=== PATIENT | female | born 1995 | race Caucasian/White ===

== ENCOUNTER 2024-03-03 02:03 | Inpatient (IN) ==
--- OUTSIDE RECORDS SUMMARY | 2024-03-03 02:10 | External Medical Summary | Summary of Care ---
Author Name Unknown Organization [facility] Address [address] [place] [address] Phone [phone] Care Team Providers [facility] [employer] Supervisor Name Role Phone GrettaMelissa smith PAYola Primary Care Provider [phone] Reason for Visit * Reason Comments Return Visit 37w1d Encounter Details Date Type Department Care Team (Late st Contact Info) Description 02/14/2024 3:45 PM EDT Office Visit Gynecology/Obstetric [facility] [address] [place] [id number] Sharon Wells MD [address] [facility] [place], [place] [id number] 37 weeks gestation of *; Diet controlled gestational diabetes mellitus (GDM) in third trimester; Family history of congenital anomaly; Antepartum anemia; History of pre-eclampsia in prior , currently ; Obesity in , antepartum Allergies No known active allergiesdocumented as of this encounter (statuses as of 02/27/2024) Medications Medication Sig Dispensed Refills Start Date End Date Status Multivitamin Adult Oral Tablet Take by mouth. Act magdalene OneTouch Verio Flex System w/Device KitIndications:Di et controlled gestational diabetes mellitus (GDM) in third trimester Use to test blood sugars 4 times daily (fasting, 1 hour after breakfast, lunch, and dinner) 1 Kit 12/08/2023 Active OneTouch Delica Lancets 30GIndications:Di et controlled gestational diabetes mellitus (GDM) in third trimester Use to test blood sugars 4 times daily (fasting, 1 hour after breakfast, lunch, and dinner) 200 Each 6 12/08/2023 Active Vitamin B-12 1000 MCG Oral Tablet (Cyanocobalamin)I ndications:Antepa rtum anemia,B12 deficiency Take 1 Tablet by mouth in the morning. 30 Tablet 5 12/08/2023 Active Docusate Sodium 100 MG Oral Capsule (Colace)Indicatio ns:Antepartum anemia Take 1 Capsule by mouth 2 times a day as needed for Constipation. 60 Capsule 5 12/11/2023 Active OneTouch Delica Lancets 30GIndications:Di et controlled gestational diabetes mellitus (GDM) in third trimester Use to test blood sugars 4 times daily (fasting, 1 hour after breakfast, lunch, and dinner) 200 Each 6 12/11/2023 Active Vitamin B-12 1000 MCG Oral Tablet (Cyanocobalamin)I ndications:Antepa rtum anemia,B12 deficiency Take 1 Tablet by mouth in the morning. 30 Tablet 5 12/11/2023 Active Vitron-C 65-125 MG Oral Tablet (Iron-Vitamin C 65-125 mg per tab)Indications:A ntepartum anemia Take 1 Tablet by mouth in the morning and 1 Tablet before bedtime. 60 Tablet 1 12/11/2023 Active OneTouch Verio In Vitro Strip (Glucose Blood) Use as directed 30 Strip 3 12/12/2023 Active OneTouch Verio In Vitro Strip (Glucose Blood)Indications :Diet controlled gestational diabetes mellitus (GDM) in third trimester Use to test blood sugars 4 times daily (fasting, 1 hour after breakfast, lunch, and dinner) 100 Strip 6 01/10/2024 Active Aspirin 81 MG Oral Tablet Delayed Release Take 1 Tablet by mouth in the morning. 4 Discontinued documented as of this encounter (statuses as of 02/27/2024) Active Problems Problem Noted Date Diagnosed Date High-risk in third trimester 4 Diet controlled gestational diabetes mellitus (GDM) in third trimester 12/08/2023 Overview: Diagnosed at 27 weeks Nutrition consult ordered Lab Results Component Value Date/Time 50-G GESTATIONAL GLUCOSE, 1 HOUR - [facility] 137 (H) 08/21/2023 09:16 AM 100-G GESTATIONAL GLUCOSE, 1 HOUR - [facility] 209 (H) 12/08/2023 08:11 AM 100-G GESTATIONAL GLUCOSE, 2 HOUR - [facility] 192 (H) 12/08/2023 09:09 AM 100-G GESTATIONAL GLUCOSE, 3 HOUR - [facility] 90 12/08/2023 10:16 AM 100-G GESTATIONAL GLUCOSE, FASTING - [facility] 82 12/08/2023 07:10 AM 12/13/23: MFM ADAPT consult complete. Enrolled in [employer]. Instructions provided to report blood sugars each week for MFM review 12/19/20238664-HYX-ddq reporting. Sent message via [employer] asking her to update blood sugars 12/25/20238427-AUX-woozte 01/02/20247288-XAO-omgwtm 01/09/20240765-NLY-rodhzc 01/15/20241214-TVN-iodkjia stable. Rare post prandial elevation 01/23/20242079-IRQ-ndtcaeo stable (2 elevated post prandial breakfast) 01/30/20248319-OQT-qavdmwu stable (rare elevation) 02/05/24: RPM reviewed; Stable 02/13/24: RPM reviewed; overall stable 02/19/20242432-VLY-tzgaurh stable (< 50% elevated) 02/27/20248026-JUJ-zbybzj Last Assessment & Plan: I reviewed the US. The anatomy that was visualized appears unremarkable and the EFW is c/w the 78%tile for the gestational age and the RAFFAELE is normal. As her GDM is controlled by diet alone, there is no clinical indication for follow-up. Antepartum anemia 12/08/2023 Overview: Hgb 10.6 on 12/08/23. Vitron C BID. Repeat CBC at 31 weeks. B12 deficiency 12/08/2023 Overview: Vitamin B12 211 on 12/08/23. Rx for 1000mcg PO B12 daily. Repeat at 31 weeks. Elevated glucose tolerance test 08/21/2023 Overview: 3 hour gtt normal. Repeat at 28w. Obesity in , antepartum 08/11/2023 Overview: Pregravid BMI 31.45 Class 1 Last Assessment & Plan: Low risk NIPT appreciated as well as early 1'GTT and 3'GTT. 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 echo may not detect small VSD (<2mm) but is effective in diagnosis of most cyanotic lesions and many other clinically relevant cardiac defects. Today's exam did not suggest any evidence of cardiac abnormality. History of pre-eclampsia in prior , currently 08/09/2023 Overview: History of preeclampsia in 2022 No evidence of chronic hypertension Baseline Preeclampsia Labs Lab Results Component Value Date/Time PLT 381 08/09/2023 02:23 PM CREATININE - [facility] 0.5 08/09/2023 02:23 PM AST - [facility] 14 08/09/2023 02:23 PM ALT - [facility] 15 08/09/2023 02:23 PM 24 urine ordered; not complete to date Encouraged aspirin 81 mg therapy at 13 weeks (08/29/23) Last Assessment & Plan: CONSIDERATIONS: Discussed that the overall recurrence rate for pre-eclampsia is 20%. The recurrence risk of pre-eclampsia is 5-7% if it was uncomplicated pre-eclampsia in the prior . If it was pre-eclampsia with severe features in the prior , the recurrence risk goes up to 30-65%. Explained to patient that risk factors for development of pre-eclampsia include the primigravid state, history of pre-eclampsia in previous , family history of pre-eclampsia, presence of chronic hypertension, increased BMI, multiple gestation, pre-existing maternal renal disease or diabetes, advanced maternal age, antiphospholipid syndrome and other coagulopathies, chronic maternal autoimmune disease, or prolonged interval between pregnancies. Discussed with patient that the risks associated with a diagnosis of pre- eclampsia which is not monitored and not managed appropriately include development of HELLP syndrome or eclampsia (seizures) and end organ damage to liver, brain, kidneys, or fetus (manifested by growth restriction or ), and even maternal . RECOMMENDATIONS: Recommend baseline pre-eclamptic labwork be done early in subsequent pregnancies to include CBC, AST/ALT, creatinine, and 24 hour total urine protein. Patients should be monitored closely in subsequent pregnancies for signs of pre-eclampsia and managed appropriately to reduce the incidence of associated maternal and risks. Reviewed that pre-eclampsia and HELLP are not preventable conditions. There is some evidence that daily ASA 81mg may decrease the risk for recurrence in patients with a history of pre-eclampsia prior to 34 weeks and we recommend that she proceed with starting this therapy after 12 weeks. History of diet-controlled gestational diabetes mellitus 08/09/2023 Overview: History of gestational diabetes (diet controlled) in 2022 No results found for: "50-G GESTATIONAL GLUCOSE", "50-G GESTATIONAL GLUCOSE, 1 HOUR - [facility]" Early glucose screen ordered; not complete to date; encouraged to complete Last Assessment & Plan: Reviewed with patient that women who have a history of GDM in a previous may have up to a 75% risk for GDM in subsequent pregnancies. Recommend obtaining early one hour Glucola screen and repeat again at 26-28 weeks if early screen is normal. Gastroesophageal reflux disease without esophagi tis 11/18/2014 IBS (irritable bowel syndrome) 11/18/2014 Duodenitis 08/29/2012 Atrial premature beats 11/29/2002 Estimated Date of Delivery Comme nts Yes 03/05/2024 Based on last me nstrual period of 05/30/2023 (Exact Date) documented as of this encounter (statuses as of 02/27/2024) Resolved Problems Problem Noted Date Diagnosed Date Resolved Date Abdominal pain 11/18/2014 11/18/2014 Epigastric pain 11/18/2014 06/17/2017 Diarrhea 11/18/2014 06/17/2017 Diarrhea 04/20/2011 07/26/2011 Excessive flatus 04/20/2011 02/01/2012 Growth deceleration 04/20/2011 07/26/19 12 GERD (gastroesophageal reflux disease) 04/20/2011 11/18/2014 Abdominal pain, epigastric 03/28/2011 1 Dysphagia 03/28/2011 07/26/2011 Overview: ICD-10 update of inactive term Loss of weight 03/28/2011 07/26/2011 Palpitations 12/17/2010 06/17/2017 Vertigo 12/17/2010 11/18/2014 Chest pain 12/17/2010 07/26/2011 ACUTE PHARYNGITIS 01/07/2002 06/26/2008 Overview: Resolved per Benign Acute Dxs Protocol #3 documented as of this encounter (statuses as of 02/27/2024) Immunizations Name Administration Dates Next Due DTaP Dipth/Tet/Acell Pertussis (Infanrix), Peds 11/06/2002,12/09/1998,1997,10/13,1997 HIB PRP-T, 4 Dose, PF, IM (H iberix, ActHib) 1998,1997,1997,08/11 HPV Vaccine, 4-Valent 06/18/2014,06/03/2013,06/01 Hepatitis B, 0-19 yrs 01/08/1998,1997,06/01 IPV - Polio Virus Vaccine (Inact) 2002,1998,1997,08/11 Influenza Vaccine, Live, Int ranasal, Trivalent (Flumist) 06/18/2012,02/08/2011 MMR - Measles/Mumps/Rubella Vaccine 11/06/2002,0 1998 Meningococcal Conjugate Vacc ine (Menactra/Menveo) 06/18/2014,08/11/2008 RSV Vac., Bivalent, Perfusio n F, Pf,0.5 Ml (Abrysvo) 01/24/2024 Seasonal Influenza Virus Vac cine, Unspecified Formulation 05/24/2022 Seasonal Influenza, Trivalen t, (IIV3), PF, (Fluzone) 01/10/2024 TDAP (age 10 and older)(Boostrix) 06/18/2014 TDAP, Age 7 and older, IM (Adacel) 12/12/2023,,08/11/2008 Varicella Vaccine (Chicken Pox) 07/12/2000,06/11 documented as of this encounter Social History Tobacco Use Types Packs/Day Years Used Date Smoking Tobacco: Never Smokeless Tobacco: Never Tobacco Cessation:Counseling Given: Not Answered Alcohol Use Standard Drinks/Week Comments No 0 (1 standard drink = 0.6 oz pur e alcohol) PHQ-2 Answer Date Recorded PHQ-2 Score 0 03/04/2018 Hunger Vital Sign Answer Date Recorded Within the past 12 months, y ou worried that your food would run out before you got the money to buy more. Never true 06/21/19 24 Within the past 12 months, t he food you bought just didn't last and you didn't have money to get more. Never true 06/21/2023 [place] Depression Scale Answer Date Recorded [place] Depression Scale Total 3 12/12/2023 The thought of harming myself has occurred to me . Never 12/12/2023 Childcare Answer Date Recorded Do you feel overwhelmed with taking care of a child, family member or friend? No 06/21/2023 Does your family need help f inding childcare? (Household - for ages 0-17 years) Not on file 06/21/2023 Clothing Answer Date Recorded Have you been unable to get clothing when it was really needed? No 06/21/2023 Is your family able to get c lothes or diapers when needed? (Household - for ages 0-17 years) Not on file 06/21/2023 Personal Safety Answer Date Recorded Do you feel unsafe or have concerns for your saf ety? No 06/21/2023 Do you have concerns for you r family's safety? (Household - for ages 0-17 years) Not on file 06/21/2023 Utilities Answer Date Recorded Do you have trouble paying y our heating, water, or electric bill? No 06/21/2023 Is your family able to pay t he heat, water, or electric bill? (Household - for ages 0-17 years) Not on file 06/21/2023 Does your family have access to good internet? (Household - for ages 0-17 years) Not on file 06/21/2023 Employment Status Answer Date Recorded Are you unemployed or without regular income? No 06/21/2023 Does the household have a re gular source of income? (Household - for ages 0-17 years) Not on file 06/21/2023 Social Connections Answer Date Recorded How often do you feel lonely or isolated from th ose around you? Never 06/21/2023 Financial Resource Strain Answer Date R ecorded Do you have any trouble payi ng for your medications, or do you think you might in the future? No 06/21/2023 Does your family have troubl e paying for medicine? (Household - for ages 0-17 years) Not on file 06/21/2023 Transportation Needs Answer Date Record ed READ ONLY Do you have troubl e getting a ride to medical visits or work? Never True 06/21/2023 Does your family have a hard time getting a ride to doctors visits? (Household - for ages 0-17 years) Not on file 06/21/2023 Has lack of transportation k ept you from medical appointments, meetings, work, or from getting things needed for daily living? Check all that apply. (Adult - for ages 18 years and over) Not on file 06/21/2023 Do you (or your family) have trouble finding or paying for a ride (transportation)? (Household - for ages 0-17 years) Not on file 06/21/2023 Housing Stability Answer Date Recorded Do you currently live in a s helter or have no steady place to sleep at night? No 06/21/2023 READ ONLY Do you think you a re at risk of becoming homeless? No 06/21/2023 Does your family worry about paying for your home or becoming homeless? (Household - for ages 0-17 years) Not on file 0 06/21/2023 Are you homeless or worried that you might be in the future? (Adult - for ages 18 years and over) Not on file Are you (or your family) julien eless or worried that you might be in the future? (Household - for ages 0-17 years) Not on file Food Insecurity Answer Date Recorded Do you need food for this week? No 06/21/2023 Are you able to get enough f ood for your family? (Household - for ages 0-17 years) Not on file 06/21/2023 Does your family need food t his week? (Household - for ages 0-17 years) Not on file 06/21/2023 Do you always have enough fo od for your family? (Household - for ages 0-17 years) Not on file 06/21/2023 Estimated Date of Delivery Comme nts Yes 03/05/2024 Based on last me nstrual period of 05/30/2023 (Exact Date) Sex and Gender Information Value Date Recorded Sex Assigned at Female 08/23/2018 3:28 PM EDT Gender Identity Female 08/23/2018 3:28 PM EDT Sexual Orientation Straight 08/23/2018 3: 28 PM EDT Job Start Date Occupation Industry Not on file Not on file Not on file documented as of this encounter Last Filed Vital Signs Vital Sign Reading Time Taken Comments Blood Pressure 130/80 02/14/2024 3:38 PM EDT Pulse - - Temperature 36.6 C (97.8 F) 02/14/2024 3:38 PM ED T Respiratory Rate - - Oxygen Saturation - - Inhaled Oxygen Concentration - - Weight 89.4 kg (197 lb 3.2 oz) 02/14/2024 3:38 P M EDT Height - - Body Mass Index 36.07 08/07/2023 1:49 PM EDT documented in this encounter Progress Notes * Sharon Wells MD - 02/14/2024 3:42 PM EDT Monica Villela is a 28 year old female here for her routine OB appointment at 37w1d. Patient reports cramps. Her Estimated Date of Delivery: 03/05/24 REVIEW OF SYSTEMS: She affirms movement. Denies vaginal bleeding, LOF, regular contractions, N/V, headaches [place] Depression Scale: No data recorded [place] suicide question and score: Score of 3 = Yes, quite often. Score of 2 = Sometimes. Score of 1 = Hardly ever No data recorded PHYSICAL EXAM: Filed Vitals: 02/14/24 1538 BP: 130/80 Temp: 36.6 C (97.8 F) Weight: 89.4 kg (197 lb 3.2 oz) +FHT 157 bpm Fundal height 39 cm ASSESSMENT/PLAN: (O24.410) Diet controlled gestational diabetes mellitus (GDM) in third trimester Plan: The patient reports her blood sugars have been well controlled. Fasting in the 80s. Postprandial 100 - 120mg/dl. (Z82.79) Family history of congenital anomaly Plan: Patient has been seen by the M team. (O99.019) Antepartum anemia Plan: Patient is taking vitron C and Vitamin B12. (O09.299) History of pre-eclampsia in prior , currently Plan: Patient has been taking aspirin 81 mg daily. Patient was instructed to discontinue aspirin. BP noted. Patient denies headaches, blurry vision or epigastric pain. (O99.210) Obesity in , antepartum Plan: GCT was elevated. (Z3A.37) 37 weeks gestation of (primary encounter diagnosis) Plan: - recommended flu vaccine - patient has been vaccinated already - labor precautions and kick counts reviewed - RTO in 1 week Sharon Wells MD documented in this encounter Nursing Notes * Kacie Weinberg LPN - 02/14/2024 3:36 PM EDT Chief Complaint Patient presents with Return Visit 37w1d Pt is with concerns of increasing cramping. Monday was having more contractions than she has before but did subside. GBS neg Kacie Weinberg LPN documented in this encounter Miscellaneous Notes * Addendum Note - Sharon Wells MD - 02/27/2024 3:49 PM EDTAddended by: SHARON WELLS on: 02/27/2024 03:49 PM Modules accepted: Level of Service documented in this encounter Plan of Treatment Health Maintenance Due Date Last Done Comments Depression Screening 06/17/2018 06/17/2017 COVID-19 Vaccine ( season) 2023 Pap Smear 12/13/2024 12/13/2021 (Done elsewhere), 12/13/2021, 12/13/2021 DTap/Tdap Vaccines (10 - Td or Tdap) 12/11/2033 12/12/2023, 05/11/2022, 06/18/2014, Additional history exists Hepatitis B Vaccine Completed 01/08/1998, 1997, 1997 HPV (Gardasil) Vaccine Completed 5, 06/03/2013, 06/18/2012 MENINGOCOCCAL (MENACTRA/MENVEO) Completed 06/18/2014, 08/11/2008 Gonorrhea / Chlamydia Screen Discontinued 08/09/2023 Influenza Vaccine (FLU shot) Completed 01/10/2024, 05/24/2022, 06/18/2012, Additional history exists Pneumococcal Vaccine: Pediatrics (0 to 5 Years) and At-Risk Patients (6 to 64 Years) Aged Out No longer eligible based on patient's age to complete this topic documented as of this encounter Medical Devices Not on filedocumented as of this encounter Visit Diagnoses Diagnosis 37 weeks gestation of - Primary state, incidental Diet controlled gestational diabetes mellitus (GDM) in third trimester Family history of congenital anomaly Family history of congenital anomalies Antepartum anemia Anemia, antepartum History of pre-eclampsia in prior , currently with other poor obstetric history Obesity in , antepartum Obesity complicating , childbirth, or the puerperium, antepartum condition or complication documented in this encounter Care Teams [employer] Supervisor Relationship Specialty Start Date End Date Sohail July MALIKA Rosado [address] [place] [id number] PCP - General Physician At Home Independent Call Center Agent 12/14/20 documented as of this encounter
--- OUTSIDE RECORDS SUMMARY | 2024-03-03 02:11 | External Medical Summary | Summary of Care ---
Author Name Unknown Organization [facility] Address [address] [place] [address] Phone [phone] Care Team Providers Care Fire Prevention Specialist Name Role Phone GrettaMelissa smith MALIKA Primary Care Provider Reason for Visit * Reason Comments Return Visit 38w Encounter Details Date Type Department Care Team (Late st Contact Info) Description 02/20/2024 3:45 PM EDT Office Visit Gynecology/Obstetric Kelly olvera [address] [place] [address] [facility] [place] [phone] 38 weeks gestation of *; Diet controlled gestational diabetes mellitus (GDM) in third trimester; Family history of congenital anomaly; Antepartum anemia; History of pre-eclampsia in prior , currently ; Obesity in , antepartum; History of diet-controlled gestational diabetes mellitus Allergies No known active allergiesdocumented as of this encounter (statuses as of 02/20/2024) Medications Medication Sig Dispensed Refills Start Date [...] as of this encounter (statuses as of 02/20/2024) Active Problems Problem Noted Date Diagnosed Date [...] 12/13/23: MFM ADAPT consult complete. Enrolled in [employer]. Instructions provided to report blood sugars each week for MFM review 12/19/20238750-YHV-wkl reporting. Sent message via [employer] asking her to update blood sugars 12/25/20239283-XVG-agtair 01/02/20243174-WTZ-jeujqs 01/09/20244548-FBM-opgbvj 01/15/20246231-NDR-jtfruzn stable. 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 [facility] genetic counseling referral placed Last Assessment [...] as of this encounter (statuses as of 02/20/2024) Resolved Problems Problem Noted Date Diagnosed Date [...] as of this encounter (statuses as of 02/20/2024) Immunizations Name Administration Dates Next Due HPV Vaccine, 4-Valent 06/18/2014,06/03/2013,06/01 Influenza Vaccine, Live, Int ranasal, Trivalent (Flumist) 06/18/2012,02/08/2011 Meningococcal Conjugate Vacc ine (Menactra/Menveo) 06/18/2014,08/11/2008 RSV Vac., Bivalent, Perfusio n F, Pf,0.5 Ml (Abrysvo) 01/24/2024 Seasonal Influenza Virus Vac cine, Unspecified Formulation 05/24/2022 Seasonal Influenza, Trivalen t, (IIV3), PF, (Fluzone) 01/10/2024 TDAP (age 10 and older)(Boostrix) 06/18/2014 TDAP, Age 7 and older, IM (Adacel) 12/12/2023,,08/11/2008 documented as of this encounter Social History [...] money to get more. Never true 06/21/2023 [place] Depression Scale Answer Date Recorded [place] Depression Scale Total 3 12/12/2023 The thought [...] 06/21/2023 Does the household have a re lar source of income? (Household - for ages [...] Sign Reading Time Taken Comments Blood Pressure 120/70 02/20/2024 3:47 PM EDT Pulse - - Temperature 36.8 C (98.2 F) 02/20/2024 3:47 PM ED T Respiratory Rate - - Oxygen Saturation - - Inhaled Oxygen Concentration - - Weight 89.2 kg (196 lb 9.6 oz) 02/20/2024 3:47 P M EDT Height - - Body Mass Index 35.96 08/07/2023 1:49 PM EDT documented in this encounter Progress Notes * Deja Irizarry MD - 02/20/2024 3:45 PM EDT Patient is 28 year old at 38 0/7 weeks who presents for GABINO visit Denies no regular contractions, leaking of fluid, or vaginal bleeding. Noted good movement. +cramping. Would like to be checked today Denies headache, blurry vision, RUQ or epigastric pain. Stopped ASA last week Problem list reviewed BP 120/70 | Temp 36.8 C (98.2 F) | Wt 89.2 kg (196 lb 9.6 oz) | LMP 05/30/2023 (Exact Date) | BMI 35.96 kg/m | BSA 1.98 m FH:39 FHT: 145-150 Cx: 1-3 Liner Checker Documentation Provider requested wool grower. Name of wool grower: Kacie Weinberg LPN Plan: Labor and preeclampsia warnings reviewed Flu vaccine already received RTC 1 weeks V Juan C BORRERO PhD documented in this encounter Nursing Notes * Kacie Weinberg LPN - 02/20/2024 3:38 PM EDT Chief Complaint Patient presents with Return Visit 38w Pt is with no concerns. GBS neg Kacie Weinberg LPN documented in this encounter Plan of Treatment Upcoming Encounters Date Type Department Care Team (Late st Contact Info) Description 02/27/2024 3:45 PM EDT Office Visit Gynecology/Obstetrics, [place] [address] [place] [phone] Shae Wells MD [address] [place] [address] Health Maintenance Due Date Last Done Comments [...] as of this encounter Visit Diagnoses Diagnosis 38 weeks gestation of - Primary state, incidental Diet controlled gestational diabetes mellitus (GDM) in third trimester Family history of congenital anomaly Family history of congenital anomalies Antepartum anemia Anemia, antepartum History of pre-eclampsia in prior , currently with other poor obstetric history Obesity in , antepartum Obesity complicating , childbirth, or the puerperium, antepartum condition or complication History of diet-controlled gestational diabetes mellitus documented in this encounter Care Teams Fire Prevention Specialist Relationship Specialty Start Date End Date SohailJuly MALIKA Rosado [address] [place] [address] PCP - General Physician Ekg Monitor 12/14/20 documented as of this encounter
--- OUTSIDE RECORDS SUMMARY | 2024-03-03 02:11 | External Medical Summary ---
Author Name Unknown Address Unknown Organization K01:[facility] [address] [place] [address] Laboratory Report Ordering Provider Test Date Status MIRIAN FUNEZ 02/07/2024 16:20:07 Final Observation Date Value Abnormality Reference (Units ) Status Streptococcus agalactiae DNA [Presence] in Specimen by MONICA with probe detection 02/07/2024 16:20:07 Negative Negative Final No Group B Streptococcus det ected by culture-enhanced PCR (amplified probe). GBS GBSCT - [facility] 02/07/2024 16:20:07 0.0 Final GBS SPCCT - [facility] 02/07/2024 16:20:07 31.2 Final Performing Location [facility] [place] [address] [place] [address]
--- OUTSIDE RECORDS SUMMARY | 2024-03-03 02:11 | External Medical Summary | Summary of Care ---
Author Name Unknown Organization [facility] Address [address] [place] [address] Phone [phone] Care Team Providers Care Weather Strip Installer Name Role Phone Melissa Sauceda PAYola Primary Care Provider [phone] Reason for Visit * Reason Onset Date Comments Home Monitoring Orders Only 12/14/2023 Encounter Details Date Type Department Care Team ([facility] st Contact Info) Description 12/14/2023 Home Monitoring Care Coordination [address], [place] [phone] Darío Gomez CRNP [address] [place] [address] Diet controlled gestational diabetes mellitus (GDM) in third trimester* Allergies No known active allergiesdocumented as of this encounter (statuses as of 12/14/2023) Medications Medication Sig Dispensed Refills Start Date End Date Status Multivitamin Adult Oral Tablet Take by mouth. Active Aspirin 81 MG Oral Tablet Delayed Release Take 1 Tablet by mouth in the morning. Active Follicumio Flex System w/Device KitIndications:Diet controlled gestational diabetes mellitus (GDM) in third trimester Use to test blood sugars 4 times daily (fasting, 1 hour after breakfast, lunch, and dinner) 1 Kit 12/08/2023 Active Follicumio In Vitro Strip (Glucose Blood)Indications:Di et controlled gestational diabetes mellitus (GDM) in third trimester Use to test blood sugars 4 times daily (fasting, 1 hour after breakfast, lunch, and dinner) 100 Strip 6 12/08/2023 Active Tilckuch Delica Lancets 30GIndications:Diet controlled gestational diabetes mellitus (GDM) in third trimester Use to test blood sugars 4 times daily (fasting, 1 hour after breakfast, lunch, and dinner) 200 Each 6 12/08/2023 Active Vitron-C 65-125 MG Oral Tablet (Iron-Vitamin C 65-125 mg per tab)Indications:Ante anemia Take 1 Tablet by mouth in the morning and 1 Tablet before bedtime. 60 Tablet 1 12/08/2023 Active Vitamin B-12 1000 MCG Oral Tablet (Cyanocobalamin)Marzena cations:Antepartum anemia,B12 deficiency Take 1 Tablet by mouth in the morning. 30 Tablet 5 12/08/2023 Active Docusate Sodium 100 MG Oral Capsule (Colace)Indications: Antepartum anemia Take 1 Capsule by mouth 2 times a day as needed for Constipation. 60 Capsule 5 12/08/2023 Active Docusate Sodium 100 MG Oral Capsule (Colace)Indications: Antepartum anemia Take 1 Capsule by mouth 2 times a day as needed for Constipation. 60 Capsule 5 12/11/2023 Active OneTouch Delica Lancets 30GIndications:Diet controlled gestational diabetes mellitus (GDM) in third trimester Use to test blood sugars 4 times daily (fasting, 1 hour after breakfast, lunch, and dinner) 200 Each 12/11/2023 Active Vitamin B-12 1000 MCG Oral Tablet (Cyanocobalamin)Marzena cations:Antepartum anemia,B12 deficiency Take 1 Tablet by mouth in the morning. 30 Tablet 5 12/11/2023 Active Vitron-C 65-125 MG Oral Tablet (Iron-Vitamin C 65-125 mg per tab)Indications:Ante anemia Take 1 Tablet by mouth in the morning and 1 Tablet before bedtime. 60 Tablet 1 12/11/2023 Active OneTouch Verio In Vitro Strip (Glucose Blood) Use as directed 30 Strip 3 12/12/2023 Active documented as of this encounter (statuses as of 12/14/2023) Active Problems Problem Noted Date Diagnosed Date High-risk in third trimester Diet controlled gestational diabetes mellitus (GDM) in [...] 12/13/23: MFM ADAPT consult complete. Enrolled in [employer]. Instructions provided to report blood sugars each week for MFM review Last Assessment & Plan: CONSIDERATIONS: Reviewed etiology and risks associated with gestational diabetes mellitus (GDM), including risks to , fetus, and maternal progression to Type 2 DM. Instructed on proper use of glucometer; supplies ordered, if indicated. Advised that life-long screening for diabetes is recommended every 1-3 years. RECOMMENDATIONS: Recommend monitoring blood sugars with daily fasting blood sugar (maintained at less than or equal to 95) and 1 hour postprandial measurements (maintained at less than or equal to 140). Medications should be adjusted to maintain these target values. Report levels to MFM (Maternal- Medicine) weekly. Recommend nutrition consult with RDN (Registered Dietitian Credit Negotiator). Lifestyle changes are also indicated including optimizing gestational weight gain and physical activity of 30 minutes per day, if not otherwise contraindicated in . Insulin is preferred if medications are indicated to optimize euglycemia. Metformin (preferred over glyburide) may also be used in some circumstances. Reviewed the risks and benefits of each. Recommend ultrasound, surveillance and delivery as follows: A1GDM, delivery should be accomplished by 41w0d. A2GDM, recommend growth assessment with MFM every 4 weeks, initiate surveillance with twice weekly NSTs at 32 weeks and continue until delivery at 39 weeks. Recommend intrapartum monitoring every 1-2 hours (A2GDM) or every 4 hours (A1GDM) and treat with insulin if indicated. Recommend 2-hour glucose tolerance testing with 75-gram glucose load during admission (or 6-8 weeks if not completed). 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 [facility] genetic counseling referral placed Last Assessment & [...] as of this encounter (statuses as of 12/14/2023) Resolved Problems Problem Noted Date Diagnosed Date [...] as of this encounter (statuses as of 12/14/2023) Immunizations Name Administration Dates Next Due HPV Vaccine, 4-Valent 06/18/2014,06/03/2013,06/01 Meningococcal Conjugate Vacc ine (Menactra/Menveo) 06/18/2014,08/11/2008 Seasonal Influenza Intranasal 06/18/2012, 011 Seasonal Influenza Virus Vac cine, Unspecified Formulation 05/24/2022 TDAP (age 10 and older)(Boostrix) 06/18/2014 TDAP, Age 7 and older, IM (Adacel) 12/12/2023,,08/11/2008 documented as of this encounter Social History Tobacco Use Types Packs/Day Years Used Date Smoking Tobacco: Never Smokeless Tobacco: Never Alcohol Use Standard Drinks/Week Comments No 0 [...] money to get more. Never true 06/21/2023 [place] Depression Scale Answer Date Recorded [place] Depression Scale Total 5 08/09/2023 The thought of harming myself has occurred to me . Never 08/09/2023 Childcare Answer Date Recorded Do you feel [...] No 06/21/2023 Does the household have a [facility] source of income? (Household - for ages [...] on file documented as of this encounter Progress Notes * Sander Pichardo [facility] Steam Distribution Supervisor - 12/14/2023 9:22 AM EDT Patient has been successfully enrolled to the [id number] Diabetes Management in program. Standard alarm settings have been set as follows: Singular glucose level > 200 Singular glucose level < 60 Patient has been advised to take blood sugar four times a day (fasting upon waking, and one hour after each meal). Patient has been oriented to remote patient monitoring, assisted with initial device set-up, and provided with instruction and education regarding the program. Patient understands that this monitoring should not be used as a replacement for emergency and/or urgent care. If patient experiences any urgent symptoms, they are aware to call office/manager of investigations provider for additional instructions. In emergency situations, they will report directly to the ED for further evaluation. If you would like to customize the alert parameters and/or instructions for this patient, please let me know and we can have them changed Electronically signed by Sander Pichardo [facility] Steam Distribution Supervisor at 12/14/2023 9:23 AM EDT documented in this encounter Plan of Treatment Upcoming Encounters Date Type Department Care Team (Late st Contact Info) Description 12/19/2023 3:30 PM EDT Office Visit Partition Setter OB Maternal Medicine [facility] [place] [address] [place] [address] Dr Crowell [address] [place] [phone] Josh Kennedy MD [address] [place] [address] 12/19/2023 3:30 PM EDT Imaging Maternal Medicine [facility] [address] [place] [address] [place] [address] Dr Crowell [address] [place] [address] 12/26/2023 2:30 PM EDT Office Visit Gyne[facility] [place] [address] [facility] [place] [address] Isabel Cui PA-C [address] [facility] [place] [phone] Health Maintenance Due Date Last Done Comments Depression Screening 06/17/2018 06/17/2017 COVID-19 Vaccine ( - season) 2022 Influenza Vaccine (FLU shot) (#1) 2023 05/24/2022, 06/18/2012, 02/08/2011 Pap Smear 12/13/2024 12/13/2021 (Done elsewhere), 12/13/2021, 12/13/2021 DTaP,Tdap,and Td Vaccines (10 - Td or Tdap) 12/11/2033 12/12/2023, 05/11/2022, 06/18/2014, Additional history exists Hepatitis B Vaccine Completed 01/08/1998, 1997, 1997 HPV (Gardasil) Vaccine Completed 5, 06/03/2013, 06/18/2012 MENINGOCOCCAL (MENACTRA/MENVEO) Completed 06/18/2014, 08/11/2008 Gonorrhea / Chlamydia Screen Discontinued 08/09/2023 Pneumococcal Vaccine: Pediatrics (0 to 5 Years) and At-Risk Patients (6 to 64 Years) Aged Out No longer eligible based on patient's age to complete this topic documented as of this encounter Medical Devices Not on filedocumented as of this encounter Visit Diagnoses Diagnosis Diet controlled gestational diabetes mellitus (GDM) in third trimester- Primary documented in this encounter Care Teams Weather Strip Installer Relationship Specialty Start Date End Date SohailJuly MALIKA Rosado [address] [place], [place] [address] PCP - General Physician Steam Distribution Supervisor 12/14/20 documented as of this encounter
--- OUTSIDE RECORDS SUMMARY | 2024-03-03 02:11 | External Medical Summary | Summary of Care ---
Author Name Unknown Organization [facility] Address [address] [facility] [place] [address] Phone [phone] Care Team Providers Care Project Administrative Assistant Name Role Phone SohailMelissa MALIKA Primary Care Provider [phone] Reason for Visit * Reason Comments Return Visit 36w 1d Encounter Details Date Type Department Care Team (Late st Contact Info) Description 02/07/2024 3:45 PM EDT Office Visit Gynecology/Obstetric Kelly olvera [address] [facility] [place] [address] Annie Milligan PA-C [address] [facility] [place] [phone] 36 weeks gestation of *; History of pre-eclampsia in prior , currently ; History of diet-controlled gestational diabetes mellitus; Family history of congenital anomaly; Obesity in , antepartum; Diet controlled gestational diabetes mellitus (GDM) in third trimester Allergies No known active allergiesdocumented as of this encounter (statuses as of 02/07/2024) Medications Medication Sig Dispensed Refills Start Date End Date Status Multivitamin Adult Oral Tablet Take by mouth. Active Aspirin 81 MG Oral Tablet Delayed Release Take 1 Tablet by mouth in the morning. Active VelociDataTouch Instamojoio Flex System w/Device KitIndications:Diet controlled gestational diabetes mellitus (GDM) in third trimester Use to test blood sugars 4 times daily (fasting, 1 hour after breakfast, lunch, and dinner) 1 Kit 12/08/2023 Active OneTouch Delica Lancets 30GIndications:Diet controlled gestational [...] Active OneTouch Verio In Vitro Strip (Glucose Blood)Indications:Di et controlled gestational diabetes mellitus (GDM) in third trimester Use to test blood sugars 4 times daily (fasting, 1 hour after breakfast, lunch, and dinner) 100 Strip 6 01/10/2024 Active documented as of this encounter (statuses as of 02/07/2024) Active Problems Problem Noted Date Diagnosed Date [...] 12/13/23: MFM ADAPT consult complete. [facility]. Instructions provided to report blood sugars each week for MFM review 12/19/20237287-ASO-hgg reporting. Sent message via [employer] asking her to update blood sugars 12/25/20230106-AMK-nutyxh 01/02/20240758-DRD-vjgbor 01/09/20244868-DVL-kjlfpm 01/15/20240640-WWN-antgwkm stable. 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 Never true 06/21/2023 [place] Depression Scale Answer Date Recorded [place] Depression Scale Total 3 12/12/2023 The thought [...] No 06/21/2023 Does the household have a [facility] source of income? (Household - for ages [...] Sign Reading Time Taken Comments Blood Pressure 118/70 02/07/2024 3:44 PM EDT Pulse - - Temperature - - Respiratory Rate - - Oxygen Saturation - - Inhaled Oxygen Concentration - - Weight 88.3 kg (194 lb 9.6 oz) 02/07/2024 3:44 P M EDT Height - - Body Mass Index 35.59 08/07/2023 1:49 PM EDT documented in this encounter Progress Notes * Annie Milligan PA-C - 02/07/2024 3:50 PM EDT Monica Villela is a 28 year old female here for her routine OB appointment at 36w1d. Her Estimated Date of Delivery: 03/05/24 REVIEW OF SYSTEMS: She affirms movement. Denies vaginal bleeding, LOF, contractions, N/V, headaches Increased swelling of lower legs when at work, encouraged compression stockings PHYSICAL EXAM: Filed Vitals: 02/07/24 1544 BP: 118/70 Weight: 88.3 kg (194 lb 9.6 oz) Community Service Aide Documentation Provider requested hha. Name of hha: Elyse Montalvo LPN for GBS swab ASSESSMENT/PLAN: (O09.299) History of pre-eclampsia in prior , currently (Z86.32) History of diet-controlled gestational diabetes mellitus Z82.79) Family history of congenital anomaly (O99.210) Obesity in , antepartum (O24.410) Diet controlled gestational diabetes mellitus (GDM) in third trimester Plan: following with MFM (Z3A.36) 36 weeks gestation of - GBS swab collected today - Reviewed labor precautions,loss of fluid, vaginal bleeding, round ligament pain, and encouraged hydration. Reviewed [facility] - RTO in 1 week Annie Milligan PA-C documented in this encounter Nursing Notes * Lilli Montalvo LPN - 02/07/2024 3:45 PM EDT Chief Complaint Patient presents with Return Visit 36w 1d documented in this encounter Plan of Treatment Upcoming Encounters Date Type Department Care Team (Late st Contact Info) Description 02/14/2024 3:45 PM EDT Office Visit Gynecology/Obstetrics, [place] [address] [place] [address] Shae Wells MD [address] [place] [address] Pending Results Name Type Priority Associated Diagnoses Date /Time GROUP B STREP CULTURE/PCR Lab Routine 36 weeks gestation of 02/07/2024 4:20 PM EDT Health Maintenance Due Date Last Done Comments [...] as of this encounter Visit Diagnoses Diagnosis 36 weeks gestation of - Primary state, incidental History of pre-eclampsia in prior , currently with other poor obstetric history History of diet-controlled gestational diabetes mellitus Family history of congenital anomaly Family history of congenital anomalies Obesity in , antepartum Obesity complicating , childbirth, or the puerperium, antepartum condition or complication Diet controlled gestational diabetes mellitus (GDM) in third trimester documented in this encounter Care Teams Project Administrative Assistant Relationship Specialty Start Date End Date Sohail July MALIKA Rosado [address] [place] [address] PCP - General Physician Charcoal Kiln Burner 12/14/20 documented as of this encounter
--- OUTSIDE RECORDS SUMMARY | 2024-03-03 02:11 | External Medical Summary | Summary of Care ---
Author Name Unknown Organization [facility] Address [address] [facility] [place] [address] Phone [phone] Care Team Providers Care Manager Of Corporate Communications Name Role Phone GrettaMelissa smith MALIKA Primary Care Provider [phone] Reason for Visit * Reason Comments Outpatient Testing Encounter Details Date Type Department Care Team (Late st Contact Info) Description 01/05/2024 10:30 AM EDT Laboratory Laboratory [facility] [address] [place] [id number] [facility] [address] [facility] [place] [address] Antepartum anemia; B12 deficiency Allergies No known active allergiesdocumented as of this encounter (statuses as of 01/05/2024) Medications Medication Sig Dispensed Refills Start Date End Date Status Multivitamin Adult Oral Tablet Take by mouth. Active Aspirin 81 MG Oral Tablet Delayed Release Take 1 Tablet by mouth in the morning. Active Rapid Vocabulary Flex System w/Device KitIndications:Diet controlled gestational diabetes mellitus (GDM) in third trimester Use to test blood sugars 4 times daily (fasting, 1 hour after breakfast, lunch, and dinner) 1 Kit 12/08/2023 Active Kuddleuch Atlantis Computingio In Vitro Strip (Glucose Blood)Indications:Di et controlled gestational diabetes mellitus (GDM) in third trimester Use to test blood sugars 4 times daily (fasting, 1 hour after breakfast, lunch, and dinner) 100 Strip 6 12/08/2023 Active OneTouch Delica Lancets 30GIndications:Diet controlled [...] as of this encounter (statuses as of 01/05/2024) Active Problems Problem Noted Date Diagnosed Date [...] to report blood sugars each week for [facility] review 12/19/20236507-HAU-cvg reporting. 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 Never true 06/21/2023 [place] Depression Scale Answer Date Recorded [place] Depression Scale Total 3 12/12/2023 The thought [...] on file documented as of this encounter Plan of Treatment Upcoming Encounters Date Type Department Care Team (Late st Contact Info) Description 01/10/2024 1:15 PM EDT Office Visit Gynecology/Obstetrics, [place] [address] [place] [address] Melonie Padilla CNM [facility] [place] [phone] Pending Results Name Type Priority Associated Diagnoses Date /Time CBC WITH WBC DIFFERENTIAL AND ANEMIA REFLEX WORKUP Lab Routine Antepartum anemia 01/05/2024 10:29 AM EDT VITAMIN B12 Lab Routine B12 deficiency 01/05/2024 10:29 AM EDT ANEMIA CBC Lab Routine Antepartum anemia 01/05/2024 10:29 AM EDT DIFFERENTIAL, AUTOMATED Lab Routine Antepartum anemia 01/05/2024 10:29 AM EDT ANEMIA REFLEX CHEMISTRY HOLD Lab Routine Antepartum anemia 01/05/2024 10:29 AM EDT Health Maintenance Due Date Last Done Comments Depression Screening 06/17/2018 06/17/2017 COVID-19 Vaccine ( season) 2023 Influenza Vaccine (FLU shot) (#1) 2023 05/24/2022, [...] as of this encounter Visit Diagnoses Diagnosis Antepartum anemia Anemia, antepartum B12 deficiency Other B-complex deficiencies documented in this encounter Care Teams Manager Of Corporate Communications Relationship Specialty Start Date End Date Melissa Sauceda, [facility] [address] [place] [address] PCP - General Physician Accounts Receivable Processor 12/14/20 documented as of this encounter
--- OUTSIDE RECORDS SUMMARY | 2024-03-03 02:11 | External Medical Summary | Summary of Care ---
Author Name Unknown Organization [facility] Address [address] [facility] [place] [address] Phone [phone] Care Team Providers Care Papier Mache Molder Name Role Phone SohailMelissa MALIKA Primary Care Provider [phone] Reason for Visit * Reason Comments Return Visit 36w 1d Encounter Details Date Type Department Care Team (Late st Contact Info) Description 02/07/2024 3:45 PM EDT Office Visit Gynecology/Obstetric Kelly olvera [address] [facility] [place] [address] Annie Milligan PA-C [address] [facility] [place] [phone] 36 weeks gestation of *; History of [...] Tablet by mouth in the morning. Active TriductorTouch CodeMonkey Studiosio Flex System w/Device KitIndications:Diet controlled gestational diabetes [...] 12/13/23: MFM ADAPT consult complete. Enrolled in [employer] [facility]. Instructions provided to report blood sugars each week for MFM review 12/19/20232907-OLW-psb reporting. Sent message via [email or web address] asking her to update blood sugars 12/25/20238894-ZQQ-inihid 01/02/20240787-TPA-emsmqd 01/09/20245414-MPH-vtzdtz 01/15/20244116-QRK-vdpikvt stable. Rare post prandial elevation 01/23/20243385-QYP-xhmzwhw stable (2 elevated post prandial breakfast) 01/30/20241943-QYA-vtoafts stable (rare elevation) 02/05/24: RPM reviewed; Stable [...] money to get more. Never true 06/21/2023 [place] Depression Scale Answer Date Recorded [place] Depression Scale Total 3 12/12/2023 The thought [...] No 06/21/2023 Does the household have a [facility] source of income? (Household - for [...] Weight: 88.3 kg (194 lb 9.6 oz) Bread Wrapper Documentation Provider requested broadband technician. Name of broadband technician: Elyse Montalvo LPN for GBS swab ASSESSMENT/PLAN: [...] 02/14/2024 3:45 PM EDT Office Visit Gynecology/Obstetrics, [place] [address] [place] [address] Shae Wells MD [address] [place] [address] Pending Results Name Type Priority Associated Diagnoses [...] trimester documented in this encounter Care Teams Papier Mache Molder Relationship Specialty Start Date End Date Sohail July MALIKA Ros[address] [place] [address] PCP - General Physician Maintenance Mechanic Helper 12/14/20 documented as of this encounter
--- OUTSIDE RECORDS SUMMARY | 2024-03-03 02:11 | External Medical Summary | Summary of Care ---
Author Name Unknown Organization [facility] Address [address] [place] [address] Phone [phone] Care Team Providers Care Manager Systems Name Role Phone SohailMelissa MALIKA Primary Care Provider [phone] Reason for Visit * Reason Comments Return Visit 36w 1d Encounter Details Date Type Department Care Team (Late st Contact Info) Description 02/07/2024 3:45 PM EDT Office Visit Gynecology/Obstetric Kelly olvera [address] [facility] [place] [address] Annie Milligan PA-C [address] [facility] [place] [phone] 36 weeks gestation of *; History of [...] Tablet by mouth in the morning. Active OctoplusTouch CSS Corpio Flex System w/Device KitIndications:Diet controlled gestational diabetes [...] 12/13/23: MFM ADAPT consult complete. Enrolled in [employer] [facility]. Instructions provided to report blood sugars each week for MFM review 12/19/20232265-BDN-sqq reporting. Sent message via [employer] asking her to update blood sugars 12/25/20238223-GTX-dphhnr 01/02/20245646-IIB-dbtezp 01/09/20248192-EPY-dbnglv 01/15/20248122-TFY-bpibtvf stable. Rare post prandial elevation 01/23/20245166-KJZ-kshnjje stable (2 elevated post prandial breakfast) 01/30/20249369-WRR-jocvrtf stable (rare elevation) 02/05/24: RPM reviewed; Stable [...] money to get more. Never true 06/21/2023 [place] Depression Scale Answer Date Recorded [place] Depression Scale Total 3 12/12/2023 The thought [...] Weight: 88.3 kg (194 lb 9.6 oz) Manager Forensic Documentation Provider requested equipment maint tech. Name of equipment maint tech: Elyse Montalvo LPN for GBS swab ASSESSMENT/PLAN: [...] 02/14/2024 3:45 PM EDT Office Visit Gynecology/Obstetrics, [place] [address] [address] Shae Wells MD [address] [place] [address] Pending Results Name Type Priority Associated Diagnoses [...] trimester documented in this encounter Care Teams Manager Systems Relationship Specialty Start Date End Date Sohail July MALIKA Rosado [address] [place] [address] PCP - General Physician Music Mixer 12/14/20 documented as of this encounter
--- OUTSIDE RECORDS SUMMARY | 2024-03-03 02:11 | External Medical Summary | Summary of Care ---
Author Name Unknown Organization [facility] Address [address] [place] [address] Phone [phone] Care Team Providers Care Manager Equity Name Role Phone GrettaMelissa smith PAYola Primary Care Provider [phone] Reason for Visit * Reason Comments Return Visit 37w1d Encounter Details Date Type Department Care Team (Late st Contact Info) Description 02/14/2024 3:45 PM EDT Office Visit Gynecology/Obstetric [place] [address] [place] [address] Sharon Wells MD [address] [facility] [place], [place] [phone] 37 weeks gestation of *; Diet controlled [...] 12/13/23: MFM ADAPT consult complete. Enrolled in [employer]. Instructions provided to report blood sugars each week for MFM review 12/19/20232638-BAM-ssh reporting. Sent message via [employer] asking her to update blood sugars 12/25/20237892-LJK-tnqnhw 01/02/20249152-LTL-gbefdu 01/09/20240777-SJW-szunfu 01/15/20245150-RZK-focuhxc stable. 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 Never true 06/21/2023 [place] Depression Scale Answer Date Recorded [place] Depression Scale Total 3 12/12/2023 The thought [...] vaginal bleeding, LOF, regular contractions, N/V, headaches [place] Depression Scale: No data recorded [place] suicide question and score: Score of 3 [...] in , antepartum Plan: GCT was elevated. 3 hour GTT was normal. (Z3A.37) 37 weeks gestation of (primary encounter [...] complication documented in this encounter Care Teams Manager Equity Relationship Specialty Start Date End Date SohailJuly MALIKA Rosado [address] [place] [address] PCP - General Physician Bead Filler 12/14/20 documented as of this encounter
--- OUTSIDE RECORDS SUMMARY | 2024-03-03 02:11 | External Medical Summary ---
Author Name Unknown Address Unknown Organization K01:[facility] [address] [place] [address] Laboratory Report Ordering Provider Test Date Status KAILA HOLLOWAY 01/05/2024 10:29:59 Final Observation Date Value Abnormality Reference (Units ) Status Vitamin B12 01/05/2024 10:29:59 120 301-5056 (pg/mL) Final Performing Location [facility] [address] [place] [address]
--- OUTSIDE RECORDS SUMMARY | 2024-03-03 02:11 | External Medical Summary | Summary of Care ---
Author Name Unknown Organization [facility] Address [address] [place] [address] Phone [phone] Care Team Providers Care Carbon Grinder Name Role Phone GrettaMelissa smith MALIKA Primary Care Provider [phone] Encounter Details Date Type Department Care Team (Late st Contact Info) Description 12/19/2023 3:30 PM EDT Office Visit Toddler Lead Teacher OB Maternal Medicine [facility] [place] [address] [place] [address] [address] [place], [place] [phone] Josh Kennedy MD [address] [place] [address] Obesity in , antepartum*; Diet controlled gestational diabetes mellitus (GDM) in third trimester Allergies No known active allergiesdocumented as of this encounter (statuses as of 12/19/2023) Medications Medication Sig Dispensed Refills Start Date End Date Status Multivitamin Adult Oral Tablet Take by mouth. Active Aspirin 81 MG Oral Tablet Delayed Release Take 1 Tablet by mouth in the morning. Active MyJobCompanyio Flex System w/Device KitIndications:Diet controlled gestational diabetes mellitus (GDM) in third trimester Use to test blood sugars 4 times daily (fasting, 1 hour after breakfast, lunch, and dinner) 1 Kit 12/08/2023 Active Arkadiumuch Graffitiio In Vitro Strip (Glucose Blood)Indications:Di et controlled gestational diabetes mellitus (GDM) in third trimester Use to test blood sugars 4 times daily (fasting, 1 hour after breakfast, lunch, and dinner) 100 Strip 6 12/08/2023 Active Arkadiumuch Delica Lancets 30GIndications:Diet controlled gestational diabetes mellitus (GDM) in third trimester Use to test blood sugars 4 times daily (fasting, 1 hour after breakfast, lunch, and dinner) 200 Each 12/08/2023 Active Vitron-C 65-125 MG Oral Tablet [...] as of this encounter (statuses as of 12/19/2023) Active Problems Problem Noted Date Diagnosed Date [...] 12/13/23: MFM ADAPT consult complete. Enrolled in [employer] [facility]. Instructions provided to report blood sugars each week for MF review 12/19/20237668-JPJ-exc reporting. 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 Never true 06/21/2023 [place] Depression Scale Answer Date Recorded [place] Depression Scale Total 3 12/12/2023 The thought [...] No 06/21/2023 Does the household have a [facility] source [facility] income? (Household - for ages [...] 18 years and over) Not on file 4 Are you (or your family) julien eless [...] as of this encounter Progress Notes * Josh Kennedy MD - 12/19/2023 3:43 PM EDT MATERNAL MEDICINE VISIT Monica Villela is at 29w0d who presents to [facility] for an ultrasound and follow-up of her high risk . The patient is currently 29 weeks, 0 days gestation with a diagnosis of GDM controlled by diet. Shecomes in for an evaluation of growth. She is being seen today by Maternal- Medicine for the following reasons: Problem List Items Addressed This Visit Obesity in , antepartum - Primary Diet controlled gestational diabetes mellitus (GDM) in third trimester I reviewed the US. The anatomy that was visualized appears unremarkable and the EFW is c/w the 78%tile for the gestational age and the RAFFAELE is normal. As her GDM is controlled by diet alone, there is no clinical indication for follow-up. We reviewed today's ultrasound findings. (For full report, please refer to ultrasound report provided separately). Ms. Villela's questions were answered to her satisfaction. Thank you for allowing us to participate in the care of this patient. Please call with any questions. Josh Kennedy MD 12/19/2023 3:43 PM documented in this encounter Miscellaneous Notes * Assessment & Plan Note - Josh Kennedy MD - 12/19/2023 3:49 PM EDT Associated Problem(s): Diet controlled gestational diabetes mellitus (GDM) in third trimester I reviewed the US. The anatomy that was visualized appears unremarkable and the EFW is c/w the 78%tile for the gestational age and the RAFFAELE is normal. As her GDM is controlled by diet alone, there is no clinical indication for follow-up. documented in this encounter Plan of Treatment Upcoming Encounters Date Type Department Care Team (Late st Contact Info) Description 12/26/2023 2:30 PM EDT Office Visit Gynecology/Obstetrics, [place] [address] [place] [address] Isabel Cui PA-C [address] [place] [address] Health Maintenance Due Date Last Done Comments Depression Screening 06/17/2018 06/17/2017 COVID-19 Vaccine (2022- season) 2022 Influenza Vaccine (FLU shot) (#1) [...] as of this encounter Visit Diagnoses Diagnosis Obesity in , antepartum- Primary Obesity complicating , childbirth, or the puerperium, antepartum condition or complication Diet controlled gestational diabetes mellitus (GDM) in third trimester documented in this encounter Care Teams Carbon Grinder Relationship Specialty Start Date End Date Sohail July MALIKA [address] [place] [address] PCP - General Physician Felt Hat Flanging Operator 12/14/20 documented as of this encounter
--- OUTSIDE RECORDS SUMMARY | 2024-03-03 02:11 | External Medical Summary | Summary of Care ---
Author Name Unknown Organization [facility] Address [address] [place] [address] Phone [phone] Care Team Providers Care Telegraphic Typewriter Installer Name Role Phone GrettaMelissa smith PAYola Primary Care Provider [phone] Reason for Visit * Reason Comments Return Visit 37w1d Encounter Details Date Type Department Care Team (Late st Contact Info) Description 02/14/2024 3:45 PM EDT Office Visit Gynecology/Obst[place] [address] [place] [address] Shae Wells MD 400 [facility] [place], [place] [phone] 37 weeks gestation of *; Diet controlled gestational diabetes mellitus (GDM) in third trimester; Family history of congenital anomaly; Antepartum anemia; History of pre-eclampsia in prior , currently ; Obesity in , antepartum Allergies No known active allergiesdocumented as of this encounter (statuses as of 02/14/2024) Medications Medication Sig Dispensed Refills Start Date End Date Status Multivitamin Adult Oral Tablet Take by mouth. Active Aspirin 81 MG Oral Tablet Delayed Release Take 1 Tablet by mouth in the morning. Active OneTouch Verio Flex System w/Device KitIndications:Diet controlled gestational diabetes [...] as of this encounter (statuses as of 02/14/2024) Active Problems Problem Noted Date Diagnosed Date [...] MFM ADAPT consult complete. Enrolled in [facility]. Instructions provided to report blood sugars each week for MFM review 12/19/20232117-GJK-mse reporting. Sent message via Paybook asking her to update blood sugars 12/25/20234033-BWM-vynpsp 01/02/20243297-IPC-mmgcsh 01/09/20246729-VWU-nrnzjx 01/15/20248432-UEJ-yumkwge stable. 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 Never true 06/21/2023 [place] Depression Scale Answer Date Recorded [place] Depression Scale Total 3 12/12/2023 The thought [...] documented in this encounter Progress Notes * Shae Wells MD - 02/14/2024 3:42 PM EDT Monica Villela is a 28 year old female here for her routine OB appointment at 37w1d. Patient reports cramps. Her Estimated Date of Delivery: 03/05/24 REVIEW OF SYSTEMS: She affirms movement. Denies vaginal bleeding, LOF, regular contractions, N/V, headaches [place] Depression Scale: No data recorded [place] suicide question and score: Score of 3 [...] counts reviewed - RTO in 1 week Shae Wells MD documented in this encounter Nursing [...] Team (Late st Contact Info) Description 02/20/2024 3:30 PM EDT Office Visit Gynecology/Obstetrics, [place] [address] [place] [address] Deja Irizarry MD [address] [place] [address] Health Maintenance Due Date Last Done [...] complication documented in this encounter Care Teams Telegraphic Typewriter Installer Relationship Specialty Start Date End Date July Ashlee, MALIKA [address] [place] [address] PCP - General Physician Butt Sawyer 12/14/20 documented as of this encounter
--- OUTSIDE RECORDS SUMMARY | 2024-03-03 02:11 | External Medical Summary | Summary of Care ---
Author Name Unknown Organization [facility] Address [address] [place] [address] Phone [phone] Care Team Providers Care Motor Vehicle Emissions Inspector Name Role Phone Melissa Sauceda MALIKA Primary Care Provider [phone] Encounter Details Date Type Department Care Team (Late st Contact Info) Description 12/18/2023 Orders Only Outcomes Research Department [address] [place], [place] [phone] Dorothy Chaidez CHRA [employer] Other*[id number] Allergies No known active allergiesdocumented as of this encounter (statuses as of 12/18/2023) Medications Medication Sig Dispensed Refills Start Date End Date Status Multivitamin Adult Oral Tablet Take by mouth. Active Aspirin 81 MG Oral Tablet Delayed Release Take 1 Tablet by mouth in the morning. Active Kosmos BiotherapeuticsToPlay Megaphone Verio Flex System w/Device KitIndications:Diet controlled gestational diabetes mellitus (GDM) in third trimester Use to test blood sugars 4 times daily (fasting, 1 hour after breakfast, lunch, and dinner) 1 Kit 12/08/2023 Active TOMI Environmental Solutionsio In Vitro Strip (Glucose Blood)Indications:Di et controlled gestational diabetes mellitus (GDM) in third trimester Use to test blood sugars 4 times daily (fasting, 1 hour after breakfast, lunch, and dinner) 100 Strip 6 12/08/2023 Active Kosmos BiotherapeuticsTouch Delica Lancets 30GIndications:Diet controlled gestational diabetes mellitus [...] as of this encounter (statuses as of 12/18/2023) Active Problems Problem Noted Date Diagnosed Date [...] Recommend nutrition consult with RDN (Registered Dietitian Digital Color Press Operator). 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 Never true 06/21/2023 [place] Depression Scale Answer Date Recorded [place] Depression Scale Total 3 12/12/2023 The thought [...] Description 12/19/2023 3:30 PM EDT Office Visit Cell Lead [facility] [place] [address] [place] [address] Dr [address] [facility] [address] Josh Kennedy MD [address] [place] [address] 12/19/2023 3:30 PM EDT Imaging Maternal Medicine [facility] [address] [place] [address] Dr [address] [facility] [address] 12/26/2023 2:30 PM EDT Office Visit Gynecology/Obstetrics, [place] [address] [place] [address] Isabel Cui PA-C [address] [place], [place] [phone] Scheduled Orders Name Type Priority Associated Diagnoses Orde r Schedule MYCODE SUBSEQUENT ADULT Lab Routine [employer] [facility] Other*[id number] Every 6 Months for 2 Occurrences starting 12/18/2023 until 01/06/2025 Health Maintenance Due Date Last Done Comments [...] as of this encounter Visit Diagnoses Diagnosis [employer] Other*[id number] documented in this encounter Care Teams Motor Vehicle Emissions Inspector Relationship Specialty Start Date End Date Sohail July MALIKA [address] [place] [address] PCP - General Physician Washing Machine Mechanic 12/14/20 documented as of this encounter
--- OUTSIDE RECORDS SUMMARY | 2024-03-03 02:11 | External Medical Summary | Summary of Care ---
Author Name Unknown Organization [facility] Address [address] [place] [address] Phone [phone] Care Team Providers Care Restaurant Area Director Name Role Phone SohailMelissa MALIKA Primary Care Provider [phone] Reason for Visit * Reason Comments Return Visit 30w0d Encounter Details Date Type Department Care Team (Late st Contact Info) Description 12/26/2023 2:30 PM EDT Office Visit Gynecology/Obstetric Kelly olvera [address] [facility] [place], [place] [phone] Isabel Cui PA-C [address] [facility] [place] [id number] 30 weeks gestation of *; History of pre-eclampsia in prior , currently ; History of diet-controlled gestational diabetes mellitus; Family history of congenital anomaly; Obesity in , antepartum; Diet controlled gestational diabetes mellitus (GDM) in third trimester Allergies No known active allergiesdocumented as of this encounter (statuses as of 12/26/2023) Medications Medication Sig Dispensed Refills Start Date End Date Status Multivitamin Adult Oral Tablet Take by mouth. Active Aspirin 81 MG Oral Tablet Delayed Release Take 1 Tablet by mouth in the morning. Active [employer] Verio Flex System w/Device KitIndications:D iet controlled gestational diabetes mellitus (GDM) in third trimester Use to test blood sugars 4 times daily (fasting, 1 hour after breakfast, lunch, and dinner) 1 Kit 12/08/2023 Active [employer] Net Systems[employer] Verio In Vitro Strip (Glucose Blood)Indication s:Diet controlled gestational diabetes mellitus (GDM) in third trimester Use to test blood sugars 4 times daily (fasting, 1 hour after breakfast, lunch, and dinner) 100 Strip 6 12/08/2023 Active OneTouch Delica Lancets 30GIndications:D iet controlled gestational diabetes mellitus (GDM) in third trimester Use to test blood sugars 4 times daily (fasting, 1 hour after breakfast, lunch, and dinner) 200 Each 6 12/08/2023 Active Vitamin B-12 1000 MCG Oral Tablet (Cyanocobalamin) Indications:Ante anemia,B12 deficiency Take 1 Tablet by mouth in the morning. 30 Tablet 5 12/08/2023 Active Docusate Sodium 100 MG Oral Capsule (Colace)Indicati ons:Antepartum anemia Take 1 Capsule by mouth 2 times a day as needed for Constipation. 60 Capsule 5 12/11/2023 Active OneTouch Delica Lancets 30GIndications:D iet controlled gestational diabetes mellitus (GDM) in third trimester Use to test blood sugars 4 times daily (fasting, 1 hour after breakfast, lunch, and dinner) 200 Each 6 12/11/2023 Active Vitamin B-12 1000 MCG Oral Tablet (Cyanocobalamin) Indications:Ante anemia,B12 deficiency Take 1 Tablet by mouth in the morning. 30 Tablet 5 12/11/2023 Active Vitron-C 65-125 MG Oral Tablet (Iron-Vitamin C 65-125 mg per tab)Indications: Antepartum anemia Take 1 Tablet by mouth in the morning and 1 Tablet before bedtime. 60 Tablet 1 12/11/2023 Active OneTouch Verio In Vitro Strip (Glucose Blood) Use as directed 30 Strip 3 12/12/2023 Active Vitron-C 65-125 MG Oral Tablet (Iron-Vitamin C 65-125 mg per tab)Indications: Antepartum anemia Take 1 Tablet by mouth in the morning and 1 Tablet before bedtime. 60 Tablet 1 12/08/2023 4 Discontinued Docusate Sodium 100 MG Oral Capsule (Colace)Indicati ons:Antepartum anemia Take 1 Capsule by mouth 2 times a day as needed for Constipation. 60 Capsule 5 12/08/2023 4 Discontinued(Med ication List Clean Up) documented as of this encounter (statuses as of 12/26/2023) Active Problems Problem Noted Date Diagnosed Date High-risk in third trimester 08/13/202 4 Diet controlled gestational diabetes mellitus (GDM) [...] 12/13/23: MFM ADAPT consult complete. Enrolled in [employer]. Instructions provided to report blood sugars each week for MFM review 12/19/20230692-LSH-crm reporting. Sent message via [employer] asking her to update blood sugars 12/25/20230030-VBX-qfhwkt Last Assessment & Plan: I reviewed the [...] as of this encounter (statuses as of 12/26/2023) Resolved Problems Problem Noted Date Diagnosed Date [...] as of this encounter (statuses as of 12/26/2023) Immunizations Name Administration Dates Next Due HPV [...] money to get more. Never true 06/21/2023 [place] Depression Scale Answer Date Recorded [place] Depression Scale Total 3 12/12/2023 The thought [...] Sign Reading Time Taken Comments Blood Pressure 108/76 12/26/2023 2:36 PM EDT Pulse - - Temperature 36.9 C (98.4 F) 12/26/2023 2:36 PM ED T Respiratory Rate - - Oxygen Saturation - - Inhaled Oxygen Concentration - - Weight 85.9 kg (189 lb 6.4 oz) 12/26/2023 2:36 P M EDT Height - - Body Mass Index 34.64 08/07/2023 1:49 PM EDT documented in this encounter Progress Notes * Isabel Cui PA-C - 12/26/2023 2:36 PM EDT Monica Villela is a 28 year old female here for her routine OB appointment at 30w0d Her Estimated Date of Delivery: 03/05/24 REVIEW OF SYSTEMS: She affirms movement. Denies vaginal bleeding, LOF, contractions, N/V, headaches Followed by [facility] for diet controlled GDM. growth scan completed 12/18 was normal, EFW 78%ile. She is submitting her BS readings to [facility]. PHYSICAL EXAM: Filed Vitals: 12/26/23 1436 BP: 108/76 Temp: 36.9 C (98.4 F) TempSrc: Tympanic Weight: 85.9 kg (189 lb 6.4 oz) +FHT 130s Fundal height 30 ASSESSMENT/PLAN: 30 weeks gestation of (Primary) History of pre-eclampsia in prior , currently History of diet-controlled gestational diabetes mellitus Family history of congenital anomaly Obesity in , antepartum Diet controlled gestational diabetes mellitus (GDM) in third trimester Follow Up: Return in about 2 weeks (around 01/09/2024) for GABINO. | For: GABINO Supervision of - labor precautions and kick counts reviewed - RTO in 2 weeks Isabel Cui PA-C documented in this encounter Nursing Notes * Zuleyka Malone CMA - 12/26/2023 2:35 PM EDT Chief Complaint Patient presents with Return Visit 30w0d Pt voices no concerns at this time documented in this encounter Plan of Treatment Upcoming Encounters Date Type Department Care Team (Late st Contact Info) Description 01/10/2024 1:15 PM EDT Office Visit Gynecology/Obstetrics, [place] [address] [address] Melonie Padilla CNM [address] [phone] Health Maintenance Due Date Last Done Comments Depression Screening 06/17/2018 06/17/2017 COVID-19 Vaccine ( season) 2022 Influenza Vaccine (FLU shot) (#1) [...] as of this encounter Visit Diagnoses Diagnosis 30 weeks gestation of - Primary state, incidental [...] trimester documented in this encounter Care Teams Restaurant Area Director Relationship Specialty Start Date End Date Sohail July MALIKA Rosado [address] [place] [address] PCP - General Physician Sales Agent Protective Service 12/14/20 documented as of this encounter
--- OUTSIDE RECORDS SUMMARY | 2024-03-03 02:11 | External Medical Summary | Summary of Care ---
Author Name Unknown Organization [facility] Address [address] [place] [address] Phone [phone] Care Team Providers Care Director Of Enterprise Applications Name Role Phone GrettaMelissa smith MALIKA Primary Care Provider [phone] Reason for Visit * Reason Onset Date Comments Return Visit 32w1d Medication Administration 01/10/2024 Flu an d/or Pneumo Inj Encounter Details Date Type Department Care Team (Late st Contact Info) Description 01/10/2024 1:15 PM EDT Office Visit Gynecology/Obstetric Kelly olvera [address] [facility] [place] [address] Melonie Padilla CNM [address] [place] [address] Supervision of other normal , antepartum*; History of pre-eclampsia in prior , currently ; Obesity in , antepartum; Diet controlled gestational diabetes mellitus (GDM) in third trimester; Need for prophylactic vaccination and inoculation against influenza Allergies No known active allergiesdocumented as of this encounter (statuses as of 01/10/2024) Medications Medication Sig Dispensed Refills Start Date End Date Status Multivitamin Adult Oral Tablet Take by mouth. Act magdalene Aspirin 81 MG Oral Tablet Delayed Release Take 1 Tablet by mouth in the morning. Active [employer] Verio Flex System w/Device KitIndications:Di et controlled gestational diabetes mellitus (GDM) in third trimester Use to test blood sugars 4 times daily (fasting, 1 hour after breakfast, lunch, and dinner) 1 Kit 12/08/2023 Active [employer] Delica Lancets 30GIndications:Di et controlled gestational diabetes [...] and dinner) 100 Strip 6 01/10/2024 Active OneTouch Verio In Vitro Strip (Glucose Blood)Indications :Diet controlled gestational diabetes mellitus (GDM) in third trimester Use to test blood sugars 4 times daily (fasting, 1 hour after breakfast, lunch, and dinner) 100 Strip 6 12/08/2023 01/10/2024 Discontinued (Refill) documented as of this encounter (statuses as of 01/10/2024) Active Problems Problem Noted Date Diagnosed Date [...] 12/13/23: MFM ADAPT consult complete. Enrolled in [employer]. Instructions provided to report blood sugars each week for MFM review 12/19/20233689-HFH-pvd reporting. 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 Never true 06/21/2023 [place] Depression Scale Answer Date Recorded [place] Depression Scale Total 3 12/12/2023 The thought [...] No 06/21/2023 Does the household have a [facility] source of income? (Household - for ages [...] Sign Reading Time Taken Comments Blood Pressure 110/64 01/10/2024 1:11 PM EDT Pulse - - Temperature 36.6 C (97.8 F) 01/10/2024 1:11 PM ED T Respiratory Rate - - Oxygen Saturation - - Inhaled Oxygen Concentration - - Weight 87 kg (191 lb 12.8 oz) 01/10/2024 1:11 PM EDT Height - - Body Mass Index 35.08 08/07/2023 1:49 PM EDT documented in this encounter Progress Notes * Melonie Padilla CNM - 01/10/2024 1:15 PM EDT Monica Villela is a 28 year old female here for her routine OB appointment at 32w1d Her Estimated Date of Delivery: 03/05/24 REVIEW OF SYSTEMS: She affirms movement. Denies vaginal bleeding, LOF, contractions, N/V, headaches PHYSICAL EXAM: Filed Vitals: 01/10/24 1311 BP: 110/64 Temp: 36.6 C (97.8 F) Weight: 87 kg (191 lb 12.8 oz) +FHT 160s Fundal height 33 ASSESSMENT/PLAN: 1. History of pre-eclampsia in prior , currently 2. Obesity in , antepartum 3. Diet controlled gestational diabetes mellitus (GDM) in third trimester -BS well controled by diet - OneTouch Verio In Vitro Strip (Glucose Blood); Use to test blood sugars 4 times daily (fasting, 1hour after breakfast, lunch, and dinner) Dispense: 100 Strip; Refill: 6 4. Need for prophylactic vaccination and inoculation against influenza - INFLUENZA VAC, TRIVALENT, (IIV3), PF, 0.5 ML (FLUZONE) 5. Supervision of other normal , antepartum Supervision of - recommended flu vaccine - patient wants today - labor precautions and kick counts reviewed - RTO in 2 weeks Melonie Padilla CNM documented in this encounter Nursing Notes * Dora Jaramillo CMA - 01/10/2024 1:26 PM EDT Pre-Administration Time Out Procedure Performed: Yes Patient Identified (Ask Name/Date of ): Yes Does the patient have a fever greater than 101 degrees today? No Patient allergic to latex? No Has the patient ever fainted after receiving an injection? No VFC Stock: No Immunization(s) verified: Yes, Immunization Name: Flu, VIS Sheet(s) given: Yes Verified Side and Site: Yes Verified Shot(s) with Parent(s)/Patient: Yes Dora Jaramillo CMA 01/10/2024 1:26 PM * Dora Jaramillo CMA - 01/10/2024 1:13 PM EDT Chief Complaint Patient presents with Return Visit 32w1d Pt voices no concerns for today. Dora Jaramillo CMA 01/10/2024 1:15 PM documented in this encounter Plan of Treatment Upcoming Encounters Date Type Department Care Team (Late st Contact Info) Description 01/24/2024 4:00 PM EDT Office Visit Gynecology/Obstetrics, [place] [address] [address] Chio Chu MD [address] [place] [address] Health Maintenance Due Date [...] as of this encounter Visit Diagnoses Diagnosis Supervision of other normal , antepartum- Primary History of pre-eclampsia in prior , currently with other poor obstetric history Obesity in , antepartum Obesity complicating , childbirth, or the puerperium, antepartum condition or complication Diet controlled gestational diabetes mellitus (GDM) in third trimester Need for prophylactic vaccination and inoculation against influenza documented in this encounter Care Teams Director Of Enterprise Applications Relationship Specialty Start Date End Date Sohail July Ashlee, [facility] [address] [place] [address] PCP - General Physician Veneer Stacker 12/14/20 documented as of this encounter
--- OUTSIDE RECORDS SUMMARY | 2024-03-03 02:11 | External Medical Summary ---
Author Name Unknown Address Unknown Organization [id number]:LABORATORY [facility] [place] - [facility] [address] [place] [address] Laboratory Report Ordering Provider Test Date Status KAILA HOLLOWAY 01/05/2024 10:29:59 Final Observation Date Value Abnormality Reference (Units ) Status WBC, Total 01/05/2024 10:29:59 11.39 Above high normal 4 .00-10.80 (K/uL) Final RBC 01/05/2024 10:29:59 3.58 3.85-5.15 (M/uL) Final Hemoglobin 01/05/2024 10:29:59 11.0 Below low normal 12 .0-15.3 (g/dL) Final Anemia reflex testing trigge rs on a HGB < 12.0 for Females and HGB < 13.0 for Males in accordance with the WHO Anemia Guidelines
Anemia reflex testing triggers on a HGB < 12.0 for Females and HGB < 13.0 for Males in accordance with the WHO Anemia Guidelines HCT 01/05/2024 10:29:59 34.9 Below low normal 36. 0-45.2 (%) Final MCV 01/05/2024 10:29:59 97.5 81.5-97.5 (fL) Final MCH 01/05/2024 10:29:59 30.7 27.0-34.0 (pg) Final MCHC 01/05/2024 10:29:59 31.5 32.0-36.0 (g/dL) Final RDW 01/05/2024 10:29:59 14.0 11.5-15.5 (%) Final Platelets 01/05/2024 10:29:59 299 140-400 (K /uL) Final MPV 01/05/2024 10:29:59 10.6 6.6-11.1 ( fL) Final Nucleated erythrocytes/100 leukocytes [Ratio] in Blood by Automated count 01/05/2024 10:29:59 0 <=0 (/100 WBCs) Final Performing Location LABORATORY [facility] [place] - [address] [facility] [address]
--- OUTSIDE RECORDS SUMMARY | 2024-03-03 02:11 | External Medical Summary | Summary of Care ---
Author Name Unknown Organization [facility] Address [address] [place] [address] Phone [phone] Care Team Providers Care Linen Supply Load Builder Name Role Phone GrettaMelissa smith MALIKA Primary Care Provider [phone] Reason for Visit * Reason Comments Return Visit 34 weeks 1 day Encounter Details Date Type Department Care Team (Late st Contact Info) Description 01/24/2024 4:00 PM EDT Office [place] [address] [facility] [place] [address] Chio Chu MD [address] [place] [address] 34 weeks gestation of *; History of pre-eclampsia in prior , currently ; Family history of congenital anomaly; Obesity in , antepartum; Diet controlled gestational diabetes mellitus (GDM) in third trimester; Need for immunization against respiratory syncytial virus Allergies No known active allergiesdocumented as of this encounter (statuses as of 01/24/2024) Medications Medication Sig Dispensed Refills Start Date End Date Status Multivitamin Adult Oral Tablet Take by mouth. Active Aspirin 81 MG Oral Tablet Delayed Release Take 1 Tablet by mouth in the morning. Active [employer] Flex System w/Device KitIndications:Diet controlled gestational diabetes [...] as of this encounter (statuses as of 01/24/2024) Active Problems Problem Noted Date Diagnosed Date [...] MFM ADAPT consult complete. Enrolled in [facility]. Instructions provided to report blood sugars each week for MFM review 12/19/20235212-CBY-nkf reporting. Sent message via [email or web address] asking her to update blood sugars 12/25/20239312-NCD-cdgosp 01/02/[id number]-WML-qnetol 01/09/20249593-FKT-cefhtf 01/15/20245594-IWP-huzbcsw stable. 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 Never true 06/21/2023 [place] Depression Scale Answer Date Recorded [place] Depression Scale Total 3 12/12/2023 The thought [...] No 06/21/2023 Does the household have a [facility] source [facility] income? (Household - for ages [...] Sign Reading Time Taken Comments Blood Pressure 102/60 01/24/2024 4:01 PM EDT Pulse - - Temperature 36.2 C (97.2 F) 01/24/2024 4:01 PM ED T Respiratory Rate - - Oxygen Saturation - - Inhaled Oxygen Concentration - - Weight 87.4 kg (192 lb 9.6 oz) 01/24/2024 4:01 P M EDT Height - - Body Mass Index 35.23 08/07/2023 1:49 PM EDT documented in this encounter Progress Notes * Chio Chu MD - 01/24/2024 4:10 PM EDT Pt is having intermittent contractions, no ROM, VB. Reports good FM. FH- 37cm FHR- 140's Pt agreed to RSV vaccine today. F/u in 2 weeks. Pt still undecided on contraception. documented in this encounter Nursing Notes * Alix Varela LPN - 01/24/2024 4:26 PM EDT Pre-Administration Time Out Procedure Performed: Yes Patient Identified (Ask Name/Date of ): Yes Does the patient have a fever greater than 101 degrees today? No Patient allergic to latex? No Has the patient ever fainted after receiving an injection? No VFC Stock: No Injection(s) verified: Yes, Injection Name: RSV Verified Side and Site: Yes Verified Shot(s) with Parent(s)/Patient: Yes Alix Vraela LPN 01/24/2024 4:26 PM * Alix Varela LPN - 01/24/2024 4:01 PM EDT Chief Complaint Patient presents with Return Visit 34 weeks 1 day MFM managing blood sugars. Alix Varela LPN 01/24/2024 4:02 PM documented in this encounter Plan of Treatment Upcoming Encounters Date Type Department Care Team (Late st Contact Info) Description 02/07/2024 3:45 PM EDT Office Visit Gynecology/Obstetrics, [place] [address] [address] Annie Milligan PA-C [address] [address] Health Maintenance Due [...] as of this encounter Visit Diagnoses Diagnosis 34 weeks gestation of - Primary state, incidental History of pre-eclampsia in prior , currently with other poor obstetric history Family history of congenital anomaly Family history of congenital anomalies Obesity in , antepartum Obesity complicating , childbirth, or the puerperium, antepartum condition or complication Diet controlled gestational diabetes mellitus (GDM) in third trimester Need for immunization against respiratory syncytial virus Need for prophylactic vaccination and inoculation against respiratory syncytial virus documented in this encounter Care Teams Linen Supply Load Builder Relationship Specialty Start Date End Date Sohail July MALIKA Rosado [facility] [place] [address] PCP - General Physician Insulation Worker 12/14/20 documented as of this encounter
--- OUTSIDE RECORDS SUMMARY | 2024-03-03 02:11 | External Medical Summary ---
Author Name Unknown Address Unknown Organization [id number]:LABORATORY [facility] [place] - [address] [place] [address] Laboratory Report Ordering Provider Test Date Status KAILA HOLLOWAY 01/05/2024 10:29:59 Final Observation Date Value Abnormality Reference (Units ) Status SYNC LEUKOCYTES IN BLOOD BY AUTOMATED COUNT 01/05/2024 10:29:59 11.39 Above high normal 4.00-10.80 (K/uL) Final Segs 01/05/2024 10:29:59 70.0 40.0-75.0 (%) Final Lymphs % 01/05/2024 10:29:59 21.3 18.0-42.0 (%) Final Monos 01/05/2024 10:29:59 6.1 1.0-11.0 (%) Final Eosinophils 01/05/2024 10:29:59 1.0 0.0-6.0 (%) Final Basos 01/05/2024 10:29:59 0.4 0.0-2.0 (%) Final Immature Granulocyte, Percent 01/05/2024 10:29:59 1.2 0.0-2.0 (%) Final Absolute Segs 01/05/2024 10:29:59 7.98 Above high normal 1.80-7.70 (K/uL) Final Lymphs, absolute 01/05/2024 10:29:59 2.43 1.00-4.80 (K/ul) Final Monos, Abs 01/05/2024 10:29:59 0.69 0.00-1.10 (K/uL) Final Eos, Abs 01/05/2024 10:29:59 0.11 0.00-0.70 (K/uL) Final Basos, Abs 01/05/2024 10:29:59 0.04 0.00-0.20 (K/uL) Final Immature Granulocytes, Number 01/05/2024 10:29:59 0.14 0.00-0.20 (K/uL) Final Performing Location LABORATORY [facility] [place] - [address] [facility] [address]
--- OUTSIDE RECORDS SUMMARY | 2024-03-03 02:12 | External Medical Summary ---
Author Name Unknown Address Unknown Organization K09:[facility]ATORY [facility] [place] [address] Laboratory Report Ordering Provider Test Date Status ELEONORAAMANDA Romero 12/08/2023 08:11:38 Final Observation Date Value Abnormality Reference (Units ) Status Glucose [Mass/volume] in Serum or Plasma --1 hour post dose glucose 12/08/2023 08:11:38 209 Above high normal 70-179 (mg/dL) Final Performing Location [facility] [address] [place] [address]
--- OUTSIDE RECORDS SUMMARY | 2024-03-03 02:12 | External Medical Summary ---
Author Name Unknown Address Unknown Organization K01:[facility] [place] [address] [place] [address] Laboratory Report Ordering Provider Test Date Status AMANDA CREWS 12/08/2023 07:10:16 Final Observation Date Value Abnormality Reference (Units ) Status Treponema pallidum Ab [Presence] in Serum by Immunoassay 12/08/2023 07:10:16 Nonreactive Nonreactive Final No serologic evidence of syp hilis. No additional testing clinicially indicated at this time. Consider repeat testing in 2-4 weeks if acute or primary syphilis is suspected. Performing Location [facility] [place] [address] [place] [address]
--- OUTSIDE RECORDS SUMMARY | 2024-03-03 02:12 | External Medical Summary ---
Author Name Unknown Address Unknown Organization K01:[facility] [place] [address] [place] [address] Laboratory Report Ordering Provider Test Date Status ELEONORAAMANDA 12/08/2023 07:10:16 Final Observation Date Value Abnormality Reference (Units ) Status TSH 12/08/2023 07:10:16 2.29 0.27-4.20 (uIU/mL) Final Performing Location LABORATORY [facility] - [address] [place] [address]
--- OUTSIDE RECORDS SUMMARY | 2024-03-03 02:12 | External Medical Summary | Summary of Care ---
Author Name Unknown Organization [facility] Address [address] [place] [address] Phone [phone] Care Team Providers Care Flight Tower Dispatcher Name Role Phone Grettasarah July MALIKA Primary Care Provider [phone] Reason for Referral * Evaluate & Treat - Unlimited Visits (Within 3 days (urgent)) - Authorized Specialty Diagnoses / Procedures Referred By Kiara t Referred To Contact Community Development Director Diagnoses Diet controlled gestational diabetes mellitus (GDM) in third trimester Darío Gomez CRNP [address] [place] [id number] Referral ID Status Reason Start Date Expiration Date Visits Requested Visits Authorized [id number] Authorized Specialty Services Required 12/13/2023 1 1 Question Answer Referral Priority Within 3 days (urgent) Where should this appointment be scheduled? [facility] Type Chronic Disease Management Chronic Disease Management Diabetes in Alarm Settings Standard per protocol Comments Has OneTouch Verio meter Reason for Visit * Reason Comments Consultation Gestational diabetes * Evaluate & Treat - Unlimited Visits (Within 10 days (routine)) - Authorized Specialty Diagnoses / Procedures Referred By Contac t Referred To Contact Obstetrics/Gynecology / Maternal Medicine Diagnoses Diet controlled gestational diabetes mellitus (GDM) in third trimester Annie Milligan PA-C [address] [place] [address] Referral ID Status Reason Start Date Expiration Date Visits Requested Visits Authorized [id number] Authorized Specialty Services Required 12/08/[phone] Encounter Details Date Type Department Care Team ([facility] Contact Info) Description 12/13/2023 9:45 AM EDT Telemedicine Communications Executive Obstetrics Maternal Medicine, [place] [address] [facility] [address] [place] [address] Darío Gomez CRNP [address] [facility] [address] [place] [address] Diet controlled gestational diabetes mellitus (GDM) in third trimester*; Supervision of high risk , antepartum, third trimester; 28 weeks gestation of Allergies No known active allergiesdocumented as of this encounter (statuses as of 12/13/2023) Medications Medication Sig Dispensed Refills Start Date [...] lunch, and dinner) 1 Kit 12/08/2023 Active Velocent SystemsTouch Verio In Vitro Strip (Glucose Blood)Indications:Di et controlled gestational diabetes mellitus (GDM) in third trimester Use to test blood sugars 4 times daily (fasting, 1 hour after breakfast, lunch, and dinner) 100 Strip 12/08/2023 Active Velocent SystemsTouch Delica Lancets 30GIndications:Diet controlled gestational diabetes mellitus [...] day as needed for Constipation. 60 Capsule 12/08/2023 Active Docusate Sodium 100 MG Oral [...] as of this encounter (statuses as of 12/13/2023) Active Problems Problem Noted Date Diagnosed Date [...] Recommend nutrition consult with RDN (Registered Dietitian Cargo Checker). 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 Never true 06/21/2023 Wilson Depression Scale Answer Date Recorded Wilson Depression Scale Total 5 08/09/2023 The thought [...] as of this encounter Progress Notes * Darío Gomez CRNP - 12/13/2023 9:53 AM EDT MATERNAL MEDICINE CONSULT Monica Villela 12/13/23 REFERRING PROVIDER: Annie Milligan PA-C Patient location: HOME. I was in a hospital or clinic location. After connecting through [employer],patient was verified with two unique identifiers. Patient (or authorized legal manufacturers representative) was then informed that this was a Telemedicine visit and being conducted confidentially over secure lines. Methods to assure confidentiality were taken. Patient acknowledged consent and understanding of pr ivacy and security of the Telemedicine visit. The patient agreed to participate. Monica Villela is a 28 year old with intrauterine at 28w1d (Estimated Date of Delivery: 03/05/24 by exact LMP) who presents today for an MFM consult due to gestational diabetes. Ms. Villela had a full MFM consult on 08/11/23 due to History of preeclampsia, history of gestational diabetes, class I obesity, and son with heterotaxy Please refer to prior MFM consult and notes for details regarding additional risk factors and recommendations. HPI/CURRENT : pre- BMI=class 1 obesity (78 kg (172 lb); 5' 2"); FOB #1; complicated by above. Genetic testing: Low Risk Cell Free DNA [facility] [place] Problems (from 08/07/23 to present) Problem Noted Resolved Diet controlled gestational diabetes mellitus (GDM) in third trimester 12/08/2023 by Annie Milligan PA-C No Overview Addendum 12/13/2023 9:50 AM by Darío Gomez CRNP Diagnosed at 27 weeks Nutrition consult ordered [...] MFM ADAPT consult complete. Enrolled in Current [facility]. 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 MFM genetic counseling referral placed History of pre-eclampsia in prior , currently 08/09/2023 by Isabel Cui PA-C No Overview Addendum 08/11/2023 8:22 AM by Darío Gomez CRNP History of preeclampsia in 2022 No evidence of chronic hypertension Baseline Preeclampsia Labs Lab Results Component Value Date/Time PLT 381 08/09/2023 02:23 PM CREATININE - [facility] 0.5 08/09/2023 02:23 PM AST - [facility] 14 08/09/2023 02:23 PM ALT - [facility] 15 08/09/2023 02:23 PM 24 urine ordered; not complete to date Encouraged aspirin 81 mg therapy at 13 weeks (08/29/23) History of diet-controlled gestational diabetes mellitus 08/09/2023 by Isabel Cui PA-C No Overview Addendum 08/11/2023 8:23 AM by Darío Gomez CRNP History of gestational diabetes (diet controlled) in 2022 No results found for: "50-G GESTATIONAL GLUCOSE", "50-G GESTATIONAL GLUCOSE, 1 HOUR - [facility]" Early glucose screen ordered; not complete to date; encouraged to complete I have reviewed this patient's previous OB ultrasound reports, pertinent labwork and testing provided by her referring OB provider. Current Outpatient Medications Medication Sig Dispense Refill Aspirin 81 MG Oral Tablet Delayed Release Take 1 Tablet by mouth in the morning. Docusate Sodium 100 MG Oral Capsule (Colace) Take 1 Capsule by mouth 2 times a day as needed for Constipation. 60 Capsule 5 Docusate Sodium 100 MG Oral Capsule (Colace) Take 1 Capsule by mouth 2 times a day as needed for Constipation. 60 Capsule 5 Multivitamin Adult Oral Tablet Take by mouth. Velocent SystemsTouch Delica Lancets 30G Use to test blood sugars 4 times daily (fasting, 1 hour after breakfast, lunch, and dinner) 200 Each 6 OneTouch Delica Lancets 30G Use to test blood sugars 4 times daily (fasting, 1 hour after breakfast, lunch, and dinner) 200 Each 6 [employer] Flex System w/Device Kit Use to test blood sugars 4 times daily (fasting, 1 hour after breakfast, lunch, and dinner) 1 Kit 0 OneTouch Verio In Vitro Strip (Glucose Blood) Use to test blood sugars 4 times daily (fasting, 1 hour after breakfast, lunch, and dinner) 100 Strip 6 OneTouch Verio In Vitro Strip (Glucose Blood) Use as directed 30 Strip 3 Vitamin B-12 1000 MCG Oral Tablet (Cyanocobalamin) Take 1 Tablet by mouth in the morning. 30 Tablet5 Vitamin B-12 1000 MCG Oral Tablet (Cyanocobalamin) Take 1 Tablet by mouth in the morning. 30 Tablet5 Vitron-C 65-125 MG Oral Tablet (Iron-Vitamin C 65-125 mg per tab) Take 1 Tablet by mouth in the morning and 1 Tablet before bedtime. 60 Tablet 1 Vitron-C 65-125 MG Oral Tablet (Iron-Vitamin C 65-125 mg per tab) Take 1 Tablet by mouth in the morning and 1 Tablet before bedtime. 60 Tablet 1 No current facility-administered medications for this visit. Review of patient's allergies indicates: No Known Allergies OB History Para Term AB Living 2 1 1 0 0 1 SAB IAB Ectopic Multiple Live Births 0 0 0 0 1 # Outcome Date GA Lbr Jermain/2nd Weight Sex Type Anes PTL Lv 2 Current 1 Term 07/15/22 38w0d 2.58 kg (5 lb 11 oz) M Vag-Spont N LANA Comments: son with heterotaxy Complications: Preeclampsia, GDM (gestational diabetes mellitus) Obstetric Comments 2023 #1 Jorge, age 27, healthy, no other children; 2nd child together; 1st child has heterotaxy Past Medical History: Diagnosis Date Abdominal pain, chronic, epigastric Diarrhea GERD (gastroesophageal reflux disease) Irregular menses Past Surgical History: Procedure Laterality Date EGD, FLEXIBLE, W/BIOPSY 05/04/2011 WNL other than some patchy increase intra-epithelial lymphoocytes in duodenum EGD, FLEXIBLE, W/BIOPSY 02/04/2015 WNL other than IEL in duodenum LAPAROSCOPY; CHOLECYSTECTOMY REMOVE TONSILS & ADENOIDS, UNDER 12 05/01/2003 SURGICAL PROCEDURE ONLY 08/15/2022 laparoscopic cholecystectomy general by Family History Problem Relation Name Age of Onset Allergies Mother Gastro-intestinal disorder Mother IBS Musculo-skeletal Disorder Mother fibromyalgia Lung Disorder Mother sleep apnea Gastro-intestinal disorder Father GERD Other (heterotaxy) Son Other (No liver, gallbadder or pancreatic disease [Other]) Other Other (No IBD, Celiac or CF [Other]) Other Social History Tobacco Use Smoking status: Never Smokeless tobacco: Never Vaping Use Vaping status: Never Used Substance Use Topics Alcohol use: No Drug use: No REVIEW OF SYSTEMS: headaches: no nausea/vomiting: denies reports movement: yes abdominal pain/tenderness/cramping/contractions: no vaginal bleeding: no vaginal leaking of fluid: no all other systems negative PHYSICAL EXAM: LMP 05/30/2023 (Exact Date) General: Well appearing Psych: Alert to time, place, and person and Pleasant DISCUSSION/RECOMMENDATIONS: Problem List Items Addressed This Visit [facility] Diet controlled gestational diabetes mellitus (GDM) in third trimester - Primary CONSIDERATIONS: Reviewed etiology and risks associated with gestational diabetes mellitus (GDM), including risks topregnancy, fetus, and maternal progression to Type 2 [...] Recommend nutrition consult with RDN (Registered Dietitian Cargo Checker). Lifestyle changes are also indicated including optimizing gestational weight gain and physical activity of 30 minutes per day, if not otherwise contraindicated in . Insulin is preferred if medications are indicated to optimize euglycemia. Metformin (preferred overglyburide) may also be used in some circumstances. [...] admission (or 6-8 weeks if not completed). Other Visit Diagnoses Supervision of high risk , antepartum, third trimester 28 weeks gestation of Follow up ultrasound with Maternal Medicine is scheduled on 12/19/[address] Kennedy for growth scan. Patient is aware of upcoming MFM appointment. NEREIDA Linares 12/13/2023 10:21 AM documented in this encounter Miscellaneous Notes * Assessment & Plan Note - Darío Gomez CRNP - 12/13/2023 9:56 AM EDT Associated Problem(s): Diet controlled gestational diabetes mellitus (GDM) in third trimester CONSIDERATIONS: Reviewed etiology and risks associated with gestational diabetes mellitus (GDM), including risks topregnancy, fetus, and maternal progression to Type 2 [...] Recommend nutrition consult with RDN (Registered Dietitian Cargo Checker). Lifestyle changes are also indicated including optimizing gestational weight gain and physical activity of 30 minutes per day, if not otherwise contraindicated in . Insulin is preferred if medications are indicated to optimize euglycemia. Metformin (preferred overglyburide) may also be used in some circumstances. [...] admission (or 6-8 weeks if not completed). documented in this encounter Plan of Treatment Upcoming Encounters Date Type Department Care Team (Late st Contact Info) Description 12/19/2023 3:30 PM EDT Office Visit Communications Executive OB Maternal Medicine [facility] [address] [place] [address] [place] [address] Dr Crowell [address] [facility] [address] Josh Kennedy MD [address] [place] [address] 12/19/2023 3:30 PM EDT Imaging Maternal Medicine [facility] [place] [address] [place] [address] Dr Crowell [address] [facility] [place] [address] 12/26/2023 2:30 PM EDT Office Visit Gynecology/Obstetrics, [place] [address] [place], [place] [phone] Isabel Cui PA-C [address] [place], [place] [phone] Scheduled Referrals Name Type Priority Associated Diagnoses Orde r Schedule REMOTE PATIENT MONITORING REFERRAL Referral Within 3 days (urgent) Diet controlled gestational diabetes mellitus (GDM) in third trimester Ordered: 12/13/2023 Health Maintenance Due Date Last Done Comments [...] diabetes mellitus (GDM) in third trimester- Primary Supervision of high risk , antepartum, third trimester 28 weeks gestation of state, incidental documented in this encounter Care Teams Flight Tower Dispatcher Relationship Specialty Start Date End Date Sohail July MALIKA Rosado [address] [place] [address] PCP - General Physician Advertising Space Clerk 12/14/20 documented as of this encounter
--- OUTSIDE RECORDS SUMMARY | 2024-03-03 02:12 | External Medical Summary ---
Author Name Unknown Address Unknown Organization [id number]:[facility] - [facility] [address] [place] [address] Laboratory Report Ordering Provider Test Date Status AMANDA CREWS 12/08/2023 07:10:16 Final Observation Date Value Abnormality Reference (Units ) Status WBC, Total 12/08/2023 07:10:16 12.85 Above high normal 4 .00-10.80 (K/uL) Final RBC 12/08/2023 07:10:16 3.45 3.85-5.15 (M/uL) Final Hemoglobin 12/08/2023 07:10:16 10.6 Below low normal 12 .0-15.3 (g/dL) Final Anemia reflex testing trigge rs on a HGB < 12.0 for Females and HGB < 13.0 for Males in accordance with the WHO Anemia Guidelines
Anemia reflex testing triggers on a HGB < 12.0 for Females and HGB < 13.0 for Males in accordance with the WHO Anemia Guidelines HCT 12/08/2023 07:10:16 32.4 Below low normal 36. 0-45.2 (%) Final MCV 12/08/2023 07:10:16 93.9 81.5-97.5 (fL) Final MCH 12/08/2023 07:10:16 30.7 27.0-34.0 (pg) Final MCHC 12/08/2023 07:10:16 32.7 32.0-36.0 (g/dL) Final RDW 12/08/2023 07:10:16 13.1 11.5-15.5 (%) Final Platelets 12/08/2023 07:10:16 354 140-400 (K /uL) Final MPV 12/08/2023 07:10:16 10.1 6.6-11.1 ( fL) Final Nucleated erythrocytes/100 leukocytes [Ratio] in Blood by Automated count 12/08/2023 07:10:16 0 <=0 (/100 WBCs) Final Performing Location [facility] - [address] [facility] [address]
--- OUTSIDE RECORDS SUMMARY | 2024-03-03 02:12 | External Medical Summary | Summary of Care ---
Author Name Unknown Organization [facility] Address [address] [place] [address] Phone [phone] Care Team Providers Care Production Maintenance Mechanic Name Role Phone GrettaMelissa smith MALIKA Primary Care Provider [phone] Reason for Visit * Reason Comments Outpatient Testing Encounter Details Date Type Department Care Team (Late st Contact Info) Description 12/08/2023 7:10 AM EDT Laboratory Laboratory [facility] [address] [place] [id number] [facility] [address] [facility] [place] [address] Supervision of high-risk , second trimester Allergies No known active allergiesdocumented as of this encounter (statuses as of 12/08/2023) Medications Medication Sig Dispensed Refills Start Date End Date Status Multivitamin Adult Oral Tablet Take by mouth. Active Aspirin 81 MG Oral Tablet Delayed Release Take 1 Tablet by mouth in the morning. Active documented as of this encounter (statuses as of 12/08/2023) Active Problems Problem Noted Date Diagnosed Date Elevated glucose tolerance test 08/21/2023 Overview: 3 hour gtt normal. Repeat at 28w. Obesity in , antepartum 08/11/2023 Overview: Pregravid BMI 31.45 Class 1 Last Assessment & Plan: Low risk NIPT appreciated as well as early 1'GTT and 3'GTT. 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 [facility] genetic counseling referral placed Last [...] on last me nstrual period of 05/30/2023 (Approximate) documented as of this encounter (statuses as of 12/08/2023) Resolved Problems Problem Noted Date Diagnosed Date [...] as of this encounter (statuses as of 12/08/2023) Immunizations Name Administration Dates Next Due HPV Vaccine, 4-Valent 06/18/2014,06/03/2013,06/01 Meningococcal Conjugate Vacc ine (Menactra/Menveo) 06/18/2014,08/11/2008 Seasonal Influenza Intranasal 06/18/2012, 011 Seasonal Influenza Virus Vac cine, Unspecified Formulation 05/24/2022 TDAP (age 10 and older)(Boostrix) 06/18/2014 TDAP, Age 7 and older, IM (Adacel) 05/11/2022, documented as of this encounter Social History [...] money to get more. Never true 06/21/2023 [place] Depression Scale Answer Date Recorded [place] Depression Scale Total 5 08/09/2023 The thought [...] on last me nstrual period of 05/30/2023 (Approximate) Sex and Gender Information Value Date Recorded [...] Care Team (Late st Contact Info) Description 12/12/2023 2:30 PM EDT Office Visit Gynecology/Obstetrics, [place] [address] [phone] Deja Irizarry MD [address] [phone] Pending Results Name Type Priority Associated Diagnoses Date /Time CBC WITH WBC DIFFERENTIAL AND ANEMIA REFLEX WORKUP Lab Routine Supervision of high-risk , second trimester 12/08/2023 7:10 AM EDT SYPHILIS ANTIBODY SCREEN WITH REFLEX TO RPR Lab Routine Supervision of high-risk , second trimester 12/08/2023 7:10 AM EDT GESTATIONAL GLUCOSE TOLERANCE, 3 HOUR Lab Routine Supervision of high-risk , second trimester 12/08/2023 7:10 AM EDT ANEMIA CBC Lab Routine Supervision of high-risk , second trimester 12/08/2023 7:10 AM EDT DIFFERENTIAL, AUTOMATED Lab Routine Supervision of high-risk , second trimester 12/08/2023 7:10 AM EDT ANEMIA REFLEX CHEMISTRY HOLD Lab Routine Supervision of high-risk , second trimester 12/08/2023 7:10 AM EDT SYPHILIS ANTIBODY SCREEN Lab Routine Supervision of high-risk , second trimester 12/08/2023 7:10 AM EDT 100-G GESTATIONAL GLUCOSE, FASTING Lab Routine Supervision of high-risk , second trimester 12/08/2023 7:10 AM EDT Scheduled Orders Name Type Priority Associated Diagnoses Orde r Schedule 100-G GESTATIONAL GLUCOSE, 1 HOUR Lab Routine Supervision of high-risk , second trimester Ordered: 12/08/2023 Health Maintenance Due Date Last Done Comments Depression Screening 06/17/2018 06/17/2017 COVID-19 Vaccine (2022- season) 2022 Influenza Vaccine (FLU shot) (#1) 2023 05/24/2022, 06/18/2012, 02/08/2011 Pap Smear 12/13/2024 12/13/2021 (Done elsewhere), 12/13/2021, 12/13/2021 DTaP,Tdap,and Td Vaccines (9 - Td or Tdap) 05/11/2032 05/11/2022, 06/18/2014, 08/11/2008, Additional history exists Hepatitis B Vaccine Completed [...] this encounter Visit Diagnoses Diagnosis Supervision of high-risk , second trimester documented in this encounter Care Teams Production Maintenance Mechanic Relationship Specialty Start Date End Date Sohail July MALIKA Rosado [facility] [address] [place] [address] PCP - General Physician Sewage Treatment Plant Operator 12/14/20 documented as of this encounter
--- OUTSIDE RECORDS SUMMARY | 2024-03-03 02:12 | External Medical Summary ---
Author Name Unknown Address Unknown Organization [id number]:[facility] [place] [address] Laboratory Report Ordering Provider Test Date Status AMANDA CREWS 12/08/2023 09:09:41 Final Observation Date Value Abnormality Reference (Units ) Status Glucose, 2-hr post glucose challenge 12/08/2023 09:09:41 192 Above high normal 70-154 (mg/dL) Final Performing Location [facility] [place] [address]
--- OUTSIDE RECORDS SUMMARY | 2024-03-03 02:12 | External Medical Summary ---
Author Name Unknown Address Unknown Organization [id number]:[facility] [place] [address] Laboratory Report Ordering Provider Test Date Status AMANDA CREWS 12/08/2023 07:10:16 Final Based on ACOG guideline, ges tational diabetes mellitus is diagnosed when any of the following is met:
Fasting is greater than or equal to 95 mg/dL
1 hour is greater than or equal to 180 mg/dL
2 hour is greater than or equal to 155 mg/dL
3 hour is greater than or equal to 140 mg/dL Observation Date Value Abnormality Reference (Units ) Status Glucose, fasting 12/08/2023 07:10:16 82 70- 94 (mg/dL) Final Performing Location [facility] [address]
--- OUTSIDE RECORDS SUMMARY | 2024-03-03 02:12 | External Medical Summary ---
Author Name Unknown Address Unknown Organization [id number]:LABORATORY [facility] - [address] [place] [address] Laboratory Report Ordering Provider Test Date Status AMANDA CREWS 12/08/2023 07:10:16 Final Observation Date Value Abnormality Reference (Units ) Status Folic Acid 12/08/2023 07:10:16 13.0 >4.5 (ng/ mL) Final Performing Location [facility]ORY [facility] - [address] [place] [address]
--- OUTSIDE RECORDS SUMMARY | 2024-03-03 02:12 | External Medical Summary | Summary of Care ---
Author Name Unknown Organization [facility] Address [address] [place] [place] [place] [address] Phone [phone] Care Team Providers Care Housetrailer Servicer Name Role Phone GrettaMelissa smith MALIKA Primary Care Provider Reason for Visit * Reason Comments Outpatient Testing Encounter Details Date Type Department Care Team (Late st Contact Info) Description 12/08/2023 7:10 AM EDT Laboratory Laboratory [facility] [address] [place] [phone] [facility] 200 [place] [address] Supervision of high-risk , second trimester Allergies [...] 08/10/2023 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 [facility] genetic counseling referral placed Last [...] 12/08/2023) Immunizations Name Administration Dates Next Due DTaP Dipth/Tet/Acell Pertussis (Infanrix), Peds 11/06/2002,12/09/1998,1997,10/13,1997 HIB PRP-T, 4 Dose, PF, IM (H iberix, ActHib) 1998,1997,1997,08/11 HPV Vaccine, 4-Valent 06/18/2014,06/03/2013,06/01 Hepatitis B, 0-19 yrs 01/08/1998,1997,06/01 IPV - Polio Virus Vaccine (Inact) 2002,1998,1997,08/11 MMR - Measles/Mumps/Rubella Vaccine 11/06/2002,0 1998 Meningococcal Conjugate Vacc ine (Menactra/Menveo) 06/18/2014,08/11/2008 Seasonal Influenza Intranasal 06/18/2012, 011 Seasonal Influenza Virus Vac cine, Unspecified Formulation 05/24/2022 TDAP (age 10 and older)(Boostrix) 06/18/2014 TDAP, Age 7 and older, IM (Adacel) 05/11/2022, Varicella Vaccine (Chicken Pox) 07/12/2000,06/11 documented as [...] money to get more. Never true 06/21/2023 [place] Depression Scale Answer Date Recorded [place] Depression Scale Total 5 08/09/2023 The thought [...] 12/12/2023 2:30 PM EDT Office Visit Gynecology/Obstetrics, [place] [address] [address] eDja Irizarry MD [address] [place] [phone] Pending Results Name Type Priority Associated Diagnoses [...] 12/08/2023 7:10 AM EDT 100-G GESTATIONAL GLUCOSE, 2 HOUR Lab Routine Supervision of high-risk , second trimester 12/08/2023 9:09 AM EDT Scheduled Orders Name Type Priority Associated Diagnoses Orde r Schedule 100-G GESTATIONAL GLUCOSE, 3 HOUR Lab Routine Supervision of high-risk [...] Not on filedocumented as of this encounter Procedures Procedure Name Priority Date/Time Associated Diagnosis Comments 100-G GESTATIONAL GLUCOSE, 1 HOUR Routine 12/08/2023 8:11 AM EDT Supervision of high-risk , second trimester 100-G GESTATIONAL GLUCOSE, FASTING Routine 12/08/2023 7:10 AM EDT Supervision of high-risk , second trimester documented in this encounter Results * (ABNORMAL) 100-G GESTATIONAL GLUCOSE, 1 HOUR (12/08/2023 8:11 AM EDT) 100-g Gestational Glucose, 1 Hour 209(H) 70 - 179 mg/dL 12/08/2023 9:02 AM EDT [facility] 56-02 Blood Venous blood specimen / Unknown Venipuncture / Unknown 12/08/2023 8:11 AM EDT 12/08/2023 8:11 AM EDT Susy Serrano CNM LAB BLOOD ORDERABL ES [facility] [address] [place] [address] * 100-G GESTATIONAL GLUCOSE, FASTING (12/08/2023 7:10 AM EDT) 100-g Gestational Glucose, Fasting 82 70 - 94 mg/dL 12/08/2023 8:36 AM EDT [facility] 56- Blood Venous blood specimen / Unknown Venipuncture / Unknown 12/08/2023 7:10 AM EDT 12/08/2023 7:10 AM EDT Narrative [facility] 56-02 - 12/08/2023 8:36 AM EDT Based on ACOG guideline, gestational diabetes mellitus is diagnosed when any of the following is met: Fasting is greater than or equal to 95 mg/dL 1 hour is greater than or equal to 180 mg/dL 2 hour is greater than or equal to 155 mg/dL 3 hour is greater than or equal to 140 mg/dL Susy Serrano [facility] LAB BLOOD ORDERABL ES [facility] [address] [facility] [address] documented in this encounter Visit Diagnoses Diagnosis Supervision of high-risk , second trimester documented in this encounter Care Teams Housetrailer Servicer Relationship Specialty Start Date End Date SohailJuly MALIKA [facility]ado [address] [facility] [address] PCP - General Physician Coffee Bar Attendant 12/14/20 documented as of this encounter
--- OUTSIDE RECORDS SUMMARY | 2024-03-03 02:12 | External Medical Summary ---
Author Name Unknown Address Unknown Organization K01:LABORATORY [facility] - [address] [place] [address] Laboratory Report Ordering Provider Test Date Status CARMEL DELVALLE 12/08/2023 09:09:59 Final Observation Date Value Abnormality Reference (Units ) Status MYCODE SPECIMEN-SST 12/08/2023 09:09:59 Freezing of extracted DNA, whole blood and/or serum. Final Performing Location LABORATORY [facility] - [address] [place] [address]
--- OUTSIDE RECORDS SUMMARY | 2024-03-03 02:12 | External Medical Summary | Summary of Care ---
Author Name Unknown Organization [facility] Address [address] [place] [address] Phone [phone] Care Team Providers Care Cupola Hoist Operator Name Role Phone Sohail July MALIKA Primary Care Provider [phone] Reason for Visit * Reason Comments Outpatient Testing Encounter Details Date Type Department Care Team (Late st Contact Info) Description 12/08/2023 7:10 AM EDT Laboratory Laboratory [facility] [address] [place] [phone] [facility] 200 [place] [address] Supervision of high-risk , second trimester; [employer] Other*[id number] Allergies No known active allergiesdocumented as of [...] 08/10/2023 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 Never true 06/21/2023 [place] Depression Scale Answer Date Recorded [place] Depression Scale Total 5 08/09/2023 The thought [...] 12/12/2023 2:30 PM EDT Office Visit Gynecology/Obstetrics, [place] [address] [address] Deja Irizarry MD [address] [place] [address] Pending Results Name Type Priority Associated Diagnoses [...] 12/08/2023 7:10 AM EDT 100-G GESTATIONAL GLUCOSE, 3 HOUR Lab Routine Supervision of high-risk , second trimester 12/08/2023 10:16 AM EDT MYCODE INITIAL ADULT Lab Routine [employer] Other*[id number] 12/08/2023 9:09 AM EDT MYCODE INITIAL ADULT-PINK Lab Routine [employer] Other*[id number] 12/08/2023 9:09 AM EDT MYCODE SST1 Lab Routine [employer] Other*[id number] 12/08/2023 9:09 AM EDT MYCODE SST2 Lab Routine [employer] Other*[id number] 12/08/2023 9:09 AM EDT Health Maintenance Due Date Last Done Comments Depression Screening 06/17/2018 06/17/2017 COVID-19 Vaccine ( season) 2022 Influenza Vaccine (FLU shot) (#1) 2023 05/24/2022, 06/18/2012, 02/08/2011 Pap Smear 12/13/2024 12/13/2021 (Done elsewhere), 12/13/2021, 12/13/2021 DTaP,Tdap,and Td Vaccines (9 - Td or Tdap) 05/11/2032 05/11/2022, 06/18/2014, 08/11/2008, Additional history exists Hepatitis B Vaccine Completed 01/08/1998, 1997, 1997 HPV (Gardasil) Vaccine Completed , 06/03/2013, 06/18/2012 MENINGOCOCCAL (MENACTRA/MENVEO) Completed 06/18/2014, 08/11/2008 [...] Date/Time Associated Diagnosis Comments 100-G GESTATIONAL GLUCOSE, 2 HOUR Routine 12/08/2023 9:09 AM EDT Supervision of high-risk , second trimester 100-G GESTATIONAL GLUCOSE, 1 HOUR Routine 12/08/2023 8:11 AM EDT Supervision of high-risk , second trimester 100-G GESTATIONAL GLUCOSE, FASTING Routine 12/08/2023 7:10 AM EDT Supervision of high-risk , second trimester documented in this encounter Results * (ABNORMAL) 100-G GESTATIONAL GLUCOSE, 2 HOUR (12/08/2023 9:09 AM EDT) 100-g Gestational Glucose, 2 Hour 192(H) 70 - 154 mg/dL 12/08/2023 10:02 AM EDT [facility] [place] 56-02 Blood Venous blood specimen / Unknown Venipuncture / Unknown 12/08/2023 9:09 AM EDT 12/08/2023 9:09 AM EDT Susy Serrano TAMARA LAB BLOOD ORDERABL ES Performing Organization Address [facility] Co de Phone Number [facility] [address] [place] [address] * (ABNORMAL) 100-G GESTATIONAL GLUCOSE, 1 HOUR (12/08/2023 8:11 AM EDT) 100-g Gestational Glucose, 1 Hour 209(H) 70 - 179 mg/dL 12/08/2023 9:02 AM EDT [facility] 56 Blood Venous blood specimen / Unknown Venipuncture / Unknown 12/08/2023 8:11 AM EDT 12/08/2023 8:11 AM EDT Susy Serrano TAMARA LAB BLOOD ORDERABL ES Performing Organization Address [facility] Co de Phone Number [facility] [address] [place] [address] * 100-G GESTATIONAL GLUCOSE, FASTING (12/08/2023 7:10 AM EDT) 100-g Gestational Glucose, Fasting 82 70 - 94 mg/dL 12/08/2023 8:36 AM EDT [facility] 56 Blood Venous blood specimen / Unknown Venipuncture / Unknown 12/08/2023 7:10 AM EDT 12/08/2023 7:10 AM EDT Narrative [facility] 56 - 12/08/2023 8:36 AM EDT Based on ACOG guideline, gestational diabetes mellitus is diagnosed when any of the following is met: Fasting is greater than or equal to 95 mg/dL 1 hour is greater than or equal to 180 mg/dL 2 hour is greater than or equal to 155 mg/dL 3 hour is greater than or equal to 140 mg/dL Susysummer Serrano [facility] LAB BLOOD ORDERABL ES Performing Organization Address [facility] Co de Phone Number [facility] [facility] [address] documented in this encounter Visit Diagnoses Diagnosis Supervision of high-risk , second trimester [employer] Other*[id number] documented in this encounter Care Teams Cupola Hoist Operator Relationship Specialty Start Date End Date SohailJuly Ashlee, PAYola 200 [facility] [place] [address] PCP - General Physician Range Technician 12/14/20 documented as of this encounter
--- OUTSIDE RECORDS SUMMARY | 2024-03-03 02:12 | External Medical Summary ---
Author Name Unknown Address Unknown Organization K01:[facility] [address] [place] [address] Laboratory Report Ordering Provider Test Date Status CARMEL DELVALLE 12/08/2023 09:09:59 Final Observation Date Value Abnormality Reference (Units ) Status MYCODE SPECIMEN-SST 12/08/2023 09:09:59 Freezing of extracted DNA, whole blood and/or serum. Final Performing Location [facility] [place] [address] [place] [address]
--- OUTSIDE RECORDS SUMMARY | 2024-03-03 02:12 | External Medical Summary | Summary of Care ---
Author Name Unknown Organization [facility] Address [address] [place] [address] Phone [phone] Care Team Providers Care Edger Technician Name Role Phone Grettasarah July PAYola Primary Care Provider [phone] Encounter Details Date Type Department Care Team (Late st Contact Info) Description 12/08/2023 Orders Only Laboratory [facility] [address] [place] [address] Sandrine Johnston, [facility] 400 [place] [address] Antepartum anemia*; B12 deficiency Allergies No known active allergiesdocumented as of this encounter (statuses as of 12/08/2023) Medications Medication Sig Dispensed Refills Start Date End Date Status Multivitamin Adult Oral Tablet Take by mouth. Active Aspirin 81 MG Oral Tablet Delayed Release Take 1 Tablet by mouth in the morning. Active ProtAbio Flex System w/Device KitIndications:Diet controlled gestational diabetes mellitus (GDM) in third trimester Use to test blood sugars 4 times daily (fasting, 1 hour after breakfast, lunch, and dinner) 1 Kit 12/08/2023 Active 3D Biomatrixuch PostRocketio In Vitro Strip (Glucose Blood)Indications: t controlled gestational diabetes mellitus (GDM) in third trimester Use to test blood sugars 4 times daily (fasting, 1 hour after breakfast, lunch, and dinner) 100 Strip 6 12/08/2023 Active Omrix BiopharmaceuticalsTouch Delica Lancets 30GIndications:Diet controlled gestational diabetes mellitus (GDM) in third trimester Use to test blood sugars 4 times daily (fasting, 1 hour after breakfast, lunch, and dinner) 200 Each 6 12/08/2023 Active Vitron-C 65-125 MG Oral Tablet (Iron-Vitamin C 65-125 mg per tab)Indications:Antep artum anemia Take 1 Tablet by mouth in the morning and 1 Tablet before bedtime. 90 Tablet 1 12/08/2023 Active Vitamin B-12 1000 MCG Oral Tablet (Cyanocobalamin)Indic ations:Antepartum anemia,B12 deficiency Take 1 Tablet by mouth in the morning. 30 Tablet 5 12/08/2023 Active Docusate Sodium 100 MG Oral Capsule (Colace)Indications:A ntepartum anemia Take 1 Capsule by mouth 2 times a day as needed for Constipation. 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 Never true 06/21/2023 [place] Depression Scale Answer Date Recorded [place] Depression Scale Total 5 08/09/2023 The thought [...] 12/12/2023 2:30 PM EDT Office Visit Gynecology/Obstetrics, [place] [address] [place] [address] Deja Irizarry MD 400 [facility] [place] [address] 12/13/2023 9:45 AM EDT Telemedicine Drupal Php Developer Obstetrics Maternal Medicine, [place] 190 [facility] [address] [place] [address] Darío Gomez CRNP 190 [facility] [address] [place] [address] 12/19/2023 3:30 PM EDT Office Visit Drupal Php Developer OB Maternal Medicine [facility] [address] [place] [address] [address] [place] [address] Josh Kennedy MD [address] [place], [place] [phone] 12/19/2023 3:30 PM EDT Imaging Maternal Medicine [facility] [address] [place] [address] [address] [place] [address] Scheduled Orders Name Type Priority Associated Diagnoses Orde r Schedule CBC WITH WBC DIFFERENTIAL AND ANEMIA REFLEX WORKUP Lab Routine Antepartum anemia Expected: 01/08/2024, Expires: 12/07/2024 VITAMIN B12 Lab Routine B12 deficiency Expected: 01/08/2024, Expires: 12/07/2024 Health Maintenance Due Date Last Done Comments [...] of this encounter Visit Diagnoses Diagnosis Antepartum anemia- Primary Anemia, antepartum B12 deficiency Other B-complex deficiencies documented in this encounter Care Teams Edger Technician Relationship Specialty Start Date End Date Sohail July MALIKA Rosado 200 [facility] [place] [address] PCP - General Physician Training Director 12/14/20 documented as of this encounter
--- OUTSIDE RECORDS SUMMARY | 2024-03-03 02:12 | External Medical Summary | Summary of Care ---
Author Name Unknown Organization [facility] Address [address] [place] [facility] [place] [address] Phone [phone] Care Team Providers Care Commissioner Public Works Name Role Phone GrettaMelissa smith MALIKA Primary Care Provider Reason for Visit * Reason Comments Outpatient Testing Encounter Details Date Type Department Care Team (Late st Contact Info) Description 12/08/2023 7:10 AM EDT Laboratory Laboratory [facility] [address] [place] [phone] [facility] 200 [facility] [place] [address] Supervision of high-risk , second trimester Allergies [...] 08/10/2023 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 Never true 06/21/2023 [place] Depression Scale Answer Date Recorded [place] Depression Scale Total 5 08/09/2023 The thought [...] 12/12/2023 2:30 PM EDT Office Visit Gynecology/Obstetrics, [place] [address] [address] Deja Irizarry MD [address] [place] [phone] Pending Results Name Type Priority Associated Diagnoses [...] 12/08/2023 7:10 AM EDT 100-G GESTATIONAL GLUCOSE, 1 HOUR Lab Routine Supervision of high-risk , second trimester 12/08/2023 8:11 AM EDT Scheduled Orders Name Type Priority Associated Diagnoses Orde r Schedule 100-G GESTATIONAL GLUCOSE, 2 HOUR Lab Routine [...] trimester documented in this encounter Care Teams Commissioner Public Works Relationship Specialty Start Date End Date SohailJuly MALIKA Rosado [address] [place] [address] PCP - General Physician Shank Archer 12/14/20 documented as of this encounter
--- OUTSIDE RECORDS SUMMARY | 2024-03-03 02:12 | External Medical Summary | Summary of Care ---
Author Name Unknown Organization [facility] Address [address] [place] [address] Phone [phone] Care Team Providers Care Legal Support Assistant Name Role Phone GrettaMelissa smith MALIKA Primary Care Provider [phone] Encounter Details Date Type Department Care Team (Late st Contact Info) Description 12/11/2023 Telephone Gynecology/Obstetrics, [place] [address] [place] [address] Sandrine Johnston, [facility] [address] [place] [address] Allergies No known active allergiesdocumented as of this encounter (statuses as of 12/11/2023) Medications Medication Sig Dispensed Refills Start Date End Date Status Multivitamin Adult Oral Tablet Take by mouth. Active Aspirin 81 MG Oral Tablet Delayed Release Take 1 Tablet by mouth in the morning. Active Inneractiveio Flex System w/Device KitIndications:Diet controlled gestational diabetes mellitus (GDM) in third trimester Use to test blood sugars 4 times daily (fasting, 1 hour after breakfast, lunch, and dinner) 1 Kit 12/08/2023 Active Inneractiveio In Vitro Strip (Glucose Blood)Indications: t controlled gestational diabetes mellitus (GDM) in third trimester Use to test blood sugars 4 times daily (fasting, 1 hour after breakfast, lunch, and dinner) 100 Strip 6 12/08/2023 Active JamStarTouch Delica Lancets 30GIndications:Diet controlled gestational diabetes mellitus [...] as of this encounter (statuses as of 12/11/2023) Active Problems Problem Noted Date Diagnosed Date [...] 08/10/2023 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 Never true 06/21/2023 [place] Depression Scale Answer Date Recorded [place] Depression Scale Total 5 08/09/2023 The thought [...] No 06/21/2023 Does the household have a [facility] source of income? (Household - for ages [...] on file documented as of this encounter Miscellaneous Notes * Telephone Encounter - Shahla Sheikh RN - 12/11/2023 10:17 AM EDT Pt returned call. Aware of results and instructions. [facility] Annie, would you mind sending all rx that were sent on 12/08/2023 to [facility]? Sandrine is out of the office and you sent GDM testing supplies to the pharmacy on 12/08/2023. Pt state she doesnot need the glucometer though. * Telephone Encounter - Shahla Sheikh RN - 12/11/2023 10:01 AM EDT T/C to pt. No answer. VM left for pt to return call to office. * Telephone Encounter - Shahla Sheikh RN - 12/11/2023 10:01 AM EDT ----- Message from Sandrine Johnston sent at 12/08/2023 7:42 PM EDT ----- Covering for Susy. Please let patient know her iron levels and her vitamin B12 levels are low. Rx for Vitron C PO BID. She should take this at least 2 hours apart from her vitamin and calcium and dairy. She may take colace 100mg PO BID as needed for constipation. I have also placed a prescription for the colace. Finally, I have prescribed 1000mcg vitamin B12 PO daily. She should repeat labs in 1 month. Thanks! Sandrine Johnston CNM documented in this encounter Plan of Treatment Upcoming Encounters Date Type Department Care Team (Late st Contact Info) Description 12/12/2023 2:30 PM EDT Office Visit Gynecology/Obstetrics, [place] [address] [place] [address] [place] [phone] Deja Irizarry MD [address] [place] [address] 12/13/2023 9:45 AM EDT Telemedicine Contact Lens Fitter Obstetrics Maternal Medicine, [address] [address] Darío Gomez CRNP 190 [facility] 112 [place] [address] 12/19/2023 3:30 PM EDT Office Visit Contact Lens Fitter OB Maternal Medicine [facility] [place] [address] [place] [address] [address] [place] [address] Josh Kennedy MD [address] [place] [address] 12/19/2023 3:30 PM EDT Imaging Maternal [facility] [place] [address] [place] [address] [address] [place] [address] Health Maintenance Due Date Last Done Comments [...] Not on filedocumented as of this encounter Care Teams Legal Support Assistant Relationship Specialty Start Date End Date Sohail Melissa MALIKA [address]ado [address] [place] [address] PCP - General Physician Pick Up Truck Driver 12/14/20 documented as of this encounter
--- OUTSIDE RECORDS SUMMARY | 2024-03-03 02:12 | External Medical Summary ---
Author Name Unknown Address Unknown Organization K01:LAB[facility]ATORY [facility] - [address] [place] [address] Laboratory Report Ordering Provider Test Date Status CARMEL DELVALLE 12/08/2023 09:09:59 Final Observation Date Value Abnormality Reference (Units ) Status AllokaODE SPECIMEN-LAV 12/08/2023 09:09:59 Freezing of extracted DNA, whole blood and/or serum. Final Performing Location [facility] - [address] [place] [id number]
--- OUTSIDE RECORDS SUMMARY | 2024-03-03 02:12 | External Medical Summary | Summary of Care ---
Author Name Unknown Organization [facility] Address [address] [place] [address] Phone [phone] Care Team Providers Care Pipe Insulator Helper Name Role Phone Sohail July MALIKA Primary Care Provider [phone] Reason for Referral * Evaluate & Treat - Unlimited Visits (Within 10 days (routine)) - Authorized Specialty Diagnoses / Procedures Referred By Kiara t Referred To Contact Automobile Dealer / Nutrition Services Diagnoses Diet controlled gestational diabetes mellitus (GDM) in third trimester Annie Milligan PA-C [address] [place] [phone] Referral ID Status Reason Start Date Expiration Date Visits Requested Visits Authorized [id number] Authorized Specialty Services Required 12/08/2023 999 999 Question Answer Is the patient ? Yes Referral Priority Within 10 days (routine) Where should this appointment be scheduled? Sung Comments This referral is for Diabetes Self-Management Training (DSMT) by a recognized [place] [employer] (ADA) para educator: Nurse (RN), Registered Dietitian [employer] (RDN), and/or Diabetes Medical Nutrition Therapy (MNT) Management (dietitian only). Diabetes educators are responsible for assessing the participant's diabetes education needs, and providing diabetes self-management training in accordance with the standards set by the ADA for DSMT. Any adjustment in diabetes therapy will be made within the guidelines of standards of practice and [facility] approved policies and procedures. I understand that the para educator will keep me informed. Areas of Education: Pathophysiology Nutrition Physical Activity Medications Monitoring Acute Complications Chronic Complications Psychosocial Management Promote Health/Behavior Change Participant will be offered 1:1 education training if there is a lack of classes available within 2 months. Providers can also order 1:1 training if indicated for participant for the following reasons: 1:1 Training for Insulin Initiation Participant Inappropriate for Class Setting By my electronic signature, I understand that my patient will be offered the comprehensive ADA content area above unless deemed not appropriate of I specify otherwise here: * Evaluate & Treat - Unlimited Visits (Within 10 days (routine)) - Authorized Specialty Diagnoses / Procedures Referred By Kiara t Referred To Contact Obstetrics/Gynecology / Maternal Medicine Diagnoses Diet controlled gestational diabetes mellitus (GDM) in third trimester Annie Milligan PA-C [address] [place] [address] Referral ID Status Reason Start Date Expiration Date Visits Requested Visits Authorized [id number] Authorized Specialty Services Required 12/08/2023 999 999 Question Answer Referral Priority Within 10 days (routine) Has the patient had a viability scan? Yes Date performed 08/09/2023 Location performed Radiology Reason for referral Diabetes Diabetes type Gestational Where should this appointment be scheduled? [facility] Comments /Para: LMP: Patient's last menstrual period was 05/30/2023 (approximate). Patient is . MANDI: 03/05/2024, by Last Menstrual Period Pre-Gravid BMI: 31.45 Encounter Details Date Type Department Care Team (Late st Contact Info) Description 12/08/2023 Orders Only Laboratory [place] [place] [address] [place] [address] Annie Milligan PA-C [address] [place] [address] Diet controlled gestational diabetes mellitus (GDM) in third trimester* Allergies No known active allergiesdocumented as of this encounter (statuses as of 12/08/2023) Medications Medication Sig Dispensed Refills Start Date End Date Status Multivitamin Adult Oral Tablet Take by mouth. Active Aspirin 81 MG Oral Tablet Delayed Release Take 1 Tablet by mouth in the morning. Active Schedule SavvyTouch Verio Flex System w/Device KitIndications:Diet controlled gestational diabetes mellitus (GDM) in third trimester Use to test blood sugars 4 times daily (fasting, 1 hour after breakfast, lunch, and dinner) 1 Kit 12/08/2023 Active Schedule SavvyTowufoo In Vitro Strip (Glucose Blood)Indications:Diet controlled gestational diabetes mellitus (GDM) in third trimester Use to test blood sugars 4 times daily (fasting, 1 hour after breakfast, lunch, and dinner) 100 Strip 6 12/08/2023 Active Schedule SavvyTouch DelAugmentra Lancets 30GIndications:Diet controlled gestational diabetes mellitus (GDM) in third trimester Use to test blood sugars 4 times daily (fasting, 1 hour after breakfast, lunch, and dinner) 200 Each 6 12/08/2023 Active documented as of this encounter (statuses as of 12/08/2023) Active Problems Problem Noted Date Diagnosed Date Diet controlled gestational diabetes mellitus (GDM) in third trimester 12/08/2023 Elevated glucose tolerance test 08/21/2023 Overview: 3 hour gtt normal. Repeat at 28w. Obesity in , antepartum 08/11/2023 Overview: Pregravid BMI 31.45 Class 1 Last Assessment & Plan: Low risk NIPT appreciated as well as early 1'GTT and 3'GTT. 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 Never true 06/21/2023 [place] Depression Scale Answer Date Recorded [place] Depression Scale Total 5 08/09/2023 The thought [...] 12/12/2023 2:30 PM EDT Office Visit Gynecology/Obstetrics, [place] [address] [place] [id number] Deja Irizarry MD [address] [place] [phone] Scheduled Referrals Name Type Priority Associated Diagnoses Orde r Schedule MATERNAL MEDICINE REFERRAL OP Referral Within 10 days (routine) Diet controlled gestational diabetes mellitus (GDM) in third trimester Ordered: 12/08/2023 DIABETES MANAGEMENT EDUCATION (ADA) REFERRAL Referral Within 10 days (routine) Diet controlled gestational diabetes mellitus (GDM) in third trimester Ordered: 12/08/2023 Health Maintenance Due Date [...] Primary documented in this encounter Care Teams Pipe Insulator Helper Relationship Specialty Start Date End Date Melissa Sauceda PA-C [address] [place] [address] PCP - General Physician Senior Software Systems Engineer 12/14/20 documented as of this encounter
--- OUTSIDE RECORDS SUMMARY | 2024-03-03 02:12 | External Medical Summary | Summary of Care ---
Author Name Unknown Organization [facility] Address [address] [place] [address] Phone [phone] Care Team Providers Care Ultimate Hoops Referee Name Role Phone GrettaMelissa smith MALIKA Primary Care Provider [phone] Encounter Details Date Type Department Care Team (Late st Contact Info) Description 12/11/2023 Telephone Gynecology/Obstetrics, [place] [address] [place] [address] Sandrine Johnston, [facility] [address] [place] [address] Allergies No known active allergiesdocumented as of this encounter (statuses as of 12/11/2023) Medications Medication Sig Dispensed Refills Start Date End Date Status Multivitamin Adult Oral Tablet Take by mouth. Active Aspirin 81 MG Oral Tablet Delayed Release Take 1 Tablet by mouth in the morning. Active Mendorio Flex System w/Device KitIndications:Diet controlled gestational diabetes mellitus (GDM) in third trimester Use to test blood sugars 4 times daily (fasting, 1 hour after breakfast, lunch, and dinner) 1 Kit 12/08/2023 Active Mendorio In Vitro Strip (Glucose Blood)Indications: t controlled gestational diabetes mellitus (GDM) in third trimester Use to test blood sugars 4 times daily (fasting, 1 hour after breakfast, lunch, and dinner) 100 Strip 6 12/08/2023 Active ElyssafregoriTouch Delica Lancets 30GIndications:Diet controlled gestational diabetes mellitus [...] 12/11/2023) Immunizations Name Administration Dates Next Due HPV [...] money to get more. Never true 06/21/2023 [place] Depression Scale Answer Date Recorded [place] Depression Scale Total 5 08/09/2023 The thought [...] 12/12/2023 2:30 PM EDT Office Visit Gynecology/Obstetrics, [place] [address] [place] [address] Deja Irizarry MD [address] [place] [address] 12/13/2023 9:45 AM EDT Telemedicine Fuel Cell Systems Engineer Obstetrics Maternal Medicine, [place] [address] [facility] [address] [place] [address] Darío Gomez CRNP [address] [facility] [address] [place] [address] 12/19/2023 3:30 PM EDT Office Visit Fuel Cell Systems Engineer OB Maternal Medicine [facility] [place] [address] [place] [address] Dr [address] [place] [address] Josh Kennedy MD [address] [place] [address] 12/19/2023 3:30 PM EDT Imaging Maternal Medicine [facility] [place] [address] [place] [address] Dr [address] [place] [id number] Health Maintenance Due Date Last Done Comments [...] filedocumented as of this encounter Care Teams Ultimate Hoops Referee Relationship Specialty Start Date End Date SohailJuly MALIKA Rosado [address] [place] [address] PCP - General Physician Network Admin 12/14/20 documented as of this encounter
--- OUTSIDE RECORDS SUMMARY | 2024-03-03 02:12 | External Medical Summary | Summary of Care ---
Author Name Unknown Organization [facility] Address [address] [facility] [place] [address] Phone [phone] Care Team Providers Care Supervisor Cell Efficiency Name Role Phone Sohail July MALIKA Primary Care Provider [phone] Reason for Visit * Reason Comments Outpatient Testing Encounter Details Date Type Department Care Team (Late st Contact Info) Description 12/08/2023 7:10 AM EDT Laboratory Laboratory [facility] [address] [place] [id number] 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 Never true 06/21/2023 [place] Depression Scale Answer Date Recorded [place] Depression Scale Total 5 08/09/2023 The thought [...] 12/12/2023 2:30 PM EDT Office Visit Gynecology/Obstetrics, [place] [address] [place] [address] Deja Irizarry MD [address] [place] [address] Pending Results Name Type Priority Associated Diagnoses [...] , second trimester 12/08/2023 9:09 AM EDT MYCODE INITIAL ADULT Lab Routine [employer] Other*[id number] 12/08/2023 9:09 AM EDT MYCODE INITIAL ADULT-PINK Lab Routine [employer] Other*[id number] 12/08/2023 9:09 AM EDT MYCODE SST1 Lab Routine [employer] Other*[id number] 12/08/2023 9:09 AM EDT MYCODE SST2 Lab Routine [employer] Other*[id number] 12/08/2023 9:09 AM EDT Scheduled Orders Name [...] - 179 mg/dL 12/08/2023 9:02 AM EDT [facility] [place] 56-02 Blood Venous blood specimen / Unknown Venipuncture / Unknown 12/08/2023 8:11 AM EDT 12/08/2023 8:11 AM EDT Susy MCDONALD LAB BLOOD ORDERABL ES Performing Organization Address City/[facility]/ZIP Co de Phone Number [facility] 56- [address] [place] [address] * 100-G GESTATIONAL GLUCOSE, FASTING (12/08/2023 7:10 AM EDT) 100-g Gestational Glucose, Fasting 82 70 - 94 mg/dL 12/08/2023 8:36 AM EDT [facility] 56 Blood Venous blood specimen / Unknown Venipuncture / Unknown 12/08/2023 7:10 AM EDT 12/08/2023 7:10 AM EDT Narrative [facility] 56 - 12/08/2023 8:36 AM EDT Based on ACOG guideline, gestational diabetes mellitus is diagnosed when any of the following is met: Fasting is greater than or equal to 95 mg/dL 1 hour is greater than or equal to 180 mg/dL 2 hour is greater than or equal to 155 mg/dL 3 hour is greater than or equal to 140 mg/dL Susy MCDONALD LAB BLOOD ORDERABL ES Performing Organization Address [facility]/ZIP Co de Phone Number [facility] 56 [address] [facility] [address] documented in this encounter Visit Diagnoses Diagnosis Supervision of high-risk , second trimester [employer] Other*[id number] documented in this encounter Care Teams Supervisor Cell Efficiency Relationship Specialty Start Date End Date SohailJuly MALIKA [facility]ado [address] [facility] [address] PCP - General Physician Hematology Supervisor 12/14/20 documented as of this encounter
--- OUTSIDE RECORDS SUMMARY | 2024-03-03 02:12 | External Medical Summary | Summary of Care ---
Author Name Unknown Organization [facility] Address [address] [place] [address] Phone [phone] Care Team Providers Care Secondary School Registrar Name Role Phone GrettaMelissa smith MALIKA Primary Care Provider Encounter Details Date Type Department Care Team (Late st Contact Info) Description 12/11/2023 Telephone Gynecology/Obstetrics, [place] [address] [place] [address] Sandrine Johnston, [facility] [address] [place] [address] Allergies No known active allergiesdocumented as of this encounter (statuses as of 12/11/2023) Medications Medication Sig Dispensed Refills Start Date End Date Status Multivitamin Adult Oral Tablet Take by mouth. Active Aspirin 81 MG Oral Tablet Delayed Release Take 1 Tablet by mouth in the morning. Active OneTouch Verio Flex System w/Device KitIndications: t controlled gestational diabetes mellitus (GDM) in third trimester Use to test blood sugars 4 times daily (fasting, 1 hour after breakfast, lunch, and dinner) 1 Kit 12/08/2023 Active OneTouch Verio In Vitro Strip (Glucose Blood)Indications: Diet controlled gestational diabetes mellitus (GDM) in third trimester Use to test blood sugars 4 times daily (fasting, 1 hour after breakfast, lunch, and dinner) 100 Strip 6 12/08/2023 Active Docusate Sodium 100 MG Oral Capsule (Colace)Indication s:Antepartum anemia Take 1 Capsule by mouth 2 times a day as needed for Constipation. 60 Capsule 5 12/11/2023 Active OneTouch Delica Lancets 30GIndications: t controlled gestational diabetes mellitus (GDM) in third trimester Use to test blood sugars 4 times daily (fasting, 1 hour after breakfast, lunch, and dinner) 200 Each 6 12/11/2023 Active Vitamin B-12 1000 MCG Oral Tablet (Cyanocobalamin)In dications:Antepart um anemia,B12 deficiency Take 1 Tablet by mouth in the morning. 30 Tablet 5 12/11/2023 Active Vitron-C 65-125 MG Oral Tablet (Iron-Vitamin C 65-125 mg per tab)Indications:An tepartum anemia Take 1 Tablet by mouth in the morning and 1 Tablet before bedtime. 60 Tablet 1 12/11/2023 Active OneTouch Delica Lancets 30GIndications: t controlled gestational diabetes mellitus (GDM) in third trimester Use to test blood sugars 4 times daily (fasting, 1 hour after breakfast, lunch, and dinner) 200 Each 6 12/08/2023 12/11/2023 Discontinued (Refill) Vitron-C 65-125 MG Oral Tablet (Iron-Vitamin C 65-125 mg per tab)Indications:An tepartum anemia Take 1 Tablet by mouth in the morning and 1 Tablet before bedtime. 60 Tablet 1 12/08/2023 12/11/2023 Discontinued (Refill) Vitamin B-12 1000 MCG Oral Tablet (Cyanocobalamin)In dications:Antepart um anemia,B12 deficiency Take 1 Tablet by mouth in the morning. 30 Tablet 5 12/08/2023 12/11/2023 Discontinued (Refill) Docusate Sodium 100 MG Oral Capsule (Colace)Indication s:Antepartum anemia Take 1 Capsule by mouth 2 times a day as needed for Constipation. 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 Never true 06/21/2023 [place] Depression Scale Answer Date Recorded [place] Depression Scale Total 5 08/09/2023 The thought [...] as of this encounter Miscellaneous Notes * Addendum Note - Annie Milligan PA-C - 12/11/2023 11:11 AM EDTAddended by: ANNIE MILLIGAN on: 12/11/2023 11:11 AM Modules accepted: Orders * Telephone Encounter - Annie Milligan PA-C - 12/11/2023 11:11 AM EDT Medications sent to new pharmacy * Telephone Encounter - Shahla Sheikh RN - 12/11/2023 10:17 AM EDT Pt returned call. Aware of results and instructions. Pt requesting to have rx sent to [facility]. Annie, would you mind sending all rx that were sent on 12/08/2023 to [facility]? Sandrine is out of the office and [...] 12/12/2023 2:30 PM EDT Office Visit Gynecology/Obstetrics, [place] [address] [place] [address] Deja Irizarry MD [address] [place] [address] 12/13/2023 9:45 AM EDT Telemedicine Cellular Equipment Repairer Obstetrics Maternal Medicine, [place] 190 [facility] [address] [place] [address] Darío Gomez CRNP 190 [facility] [address] [place] [address] 12/19/2023 3:30 PM EDT Office Visit Cellular Equipment Repairer OB Maternal Medicine [facility] [place] [address] [place] [address] [address] [place] [address] Josh Kennedy MD [address] [facility] [place] [address] 12/19/2023 3:30 PM EDT Imaging Maternal Medicine [facility] [place] [address] [place] [address] [address] [place] [address] Health Maintenance Due Date Last Done Comments Depression Screening 06/17/2018 06/17/2017 COVID-19 Vaccine (1 - 2022- season) 2022 Influenza Vaccine (FLU shot) (#1) [...] Visit Diagnoses Diagnosis Antepartum anemia Anemia, antepartum Diet controlled gestational diabetes mellitus (GDM) in third trimester B12 deficiency Other B-complex deficiencies documented in this encounter Care Teams Secondary School Registrar Relationship Specialty Start Date End Date SohailJuly MALIKA Rosado 200 [facility] [place] [address] PCP - General Physician Automatic Equipment Technician 12/14/20 documented as of this encounter
--- OUTSIDE RECORDS SUMMARY | 2024-03-03 02:12 | External Medical Summary | Summary of Care ---
Author Name Unknown Organization [facility] Address [address] [place] [address] Phone [phone] Care Team Providers Care Territory Service Representative Name Role Phone GrettaMelissa smith PAYola Primary Care Provider [phone] Reason for Visit * Reason Comments Return Visit 28w Encounter Details Date Type Department Care Team (Late st Contact Info) Description 12/12/2023 2:30 PM EDT Office Visit Gynecology/Obstetric Kelly olvera [address] [place] [address] Deja Irizarry MD [address] [facility] [place], [place] [phone] 28 weeks gestation of *; Antepartum anemia; Diet controlled gestational diabetes mellitus (GDM) in third trimester; History of pre-eclampsia in prior , currently ; History of diet-controlled gestational diabetes mellitus; High-risk in third trimester; Family history of congenital anomaly; Obesity in , antepartum Allergies No known active allergiesdocumented as of this encounter (statuses as of 12/12/2023) Medications Medication Sig Dispensed Refills Start Date End Date Status Multivitamin Adult Oral Tablet Take by mouth. Active Aspirin 81 MG Oral Tablet Delayed Release Take 1 Tablet by mouth in the morning. Active [employer] Verio Flex System w/Device KitIndications:Diet controlled gestational [...] lunch, and dinner) 100 Strip 12/08/2023 Active OneTouch Delica Lancets 30GIndications:Diet controlled [...] by mouth in the morning. 30 Tablet 12/08/2023 Active Docusate Sodium 100 MG Oral [...] by mouth in the morning. 30 Tablet 12/11/2023 Active Vitron-C 65-125 MG Oral Tablet (Iron-Vitamin C 65-125 mg per tab)Indications:Ante anemia Take 1 Tablet by mouth in the morning and 1 Tablet before bedtime. 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 Never true 06/21/2023 [place] Depression Scale Answer Date Recorded [place] Depression Scale Total 5 08/09/2023 The thought [...] Sign Reading Time Taken Comments Blood Pressure 128/70 12/12/2023 2:29 PM EDT Pulse - - Temperature 36.8 C (98.2 F) 12/12/2023 2:29 PM ED T Respiratory Rate - - Oxygen Saturation - - Inhaled Oxygen Concentration - - Weight 86 kg (189 lb 9.6 oz) 12/12/2023 2:29 PM EDT Height - - Body Mass Index 34.68 08/07/2023 1:49 PM EDT documented in this encounter Progress Notes * Deja Irizaryr MD - 12/12/2023 2:30 PM EDT Patient is 28 year old at 28 0/7 weeks who presents for GABINO visit Denies contractions, leaking of fluid, or vaginal bleeding. Noted good movement. Having more white discharge. Not bothering her. Not having pain. Worried about something she saw on her vulva when she was moving a mirror in her bathroom. States she has a picture. Patient's partner is planning to give vasectomy, she still wants control after this child. Is not really interested in pills. Not interested in shots or Nexplanon due to bruising. Unsure about IUD Denies headache, blurry vision, RUQ or epigastric pain. Seeing MFM for A1GDM dx at 27 weeks [place] Depression Scale: [place] Depression Scale Total: 3 [place] suicide question and score: Score of 3 = Yes, quite often. Score of 2 = Sometimes. Score of 1 = Hardly ever The thought of harming myself has occurred to me.: 0 Problem list reviewed BP 128/70 | Temp 36.8 C (98.2 F) | Wt 86 kg (189 lb 9.6 oz) | LMP 05/30/2023 (Approximate) | BMI 34.68 kg/m | BSA 1.94 m FH: 28 FHT: 150 Plan: Labor and preeclampsia warnings reviewed Follow up with nutrition/ADAPT and MFM as scheduled 12/12 and 12/18 Images reviewed per patient request, appears to just be normal healing from previous laceration at her last delivery.. No obvious masses or lesions seen Tdap today Discussed long-term reversible contraception such as Depo, Nexplanon and IUD. RTC 2 weeks V Juan C BORRERO PhD documented in this encounter Nursing Notes * Kacie Weinberg LPN - 12/12/2023 2:50 PM EDT Pre-Administration Time Out Procedure Performed: Yes Patient Identified (Ask Name/Date of ): Yes Does the patient have a fever greater than 101 degrees today? No Patient allergic to latex? No Has the patient ever fainted after receiving an injection? No VFC Stock: No Immunization(s) verified: Yes, Immunization Name: Tdap (Adacel), VIS Sheet(s) given: Yes Verified Side and Site: Yes Verified Shot(s) with Parent(s)/Patient: Yes Kacie Weinberg LPN * Kacie Weinberg LPN - 12/12/2023 2:26 PM EDT Chief Complaint Patient presents with Return Visit 28w Pt is with no concerns. Labs completed on 12/08/2023 Tdap today. Kacie Weinberg LPN documented in this encounter Plan of Treatment Upcoming Encounters Date Type Department Care Team (Late st Contact Info) Description 12/13/2023 9:45 AM EDT Telemedicine Draper[facility] Examiner Obstetrics Maternal Medicine, [place] [address] [facility] [address] [place] [address] Darío Goemz CRNP [address] [facility] [address] [place] [address] 12/19/2023 3:30 PM EDT Office Visit [place] Examiner OB Maternal Medicine [facility] Beto Pierre [address] [place] [address] [address] [place] [address] Josh Kennedy MD [address] [place] [address] 12/19/2023 3:30 PM EDT Imaging Maternal Medicine [facility] Beto Pierre [address] [place] [address] Dr [address] [place] [address] 12/26/2023 2:30 PM EDT Office Visit Gynecology/Obstetrics, [place] [address] [place] [address] Isabel Cui PA-C [address] [place] [address] Health Maintenance Due Date Last Done Comments [...] as of this encounter Visit Diagnoses Diagnosis 28 weeks gestation of - Primary state, incidental Antepartum anemia Anemia, antepartum Diet controlled gestational diabetes mellitus (GDM) in third trimester History of pre-eclampsia in prior , currently with other poor obstetric history History of diet-controlled gestational diabetes mellitus High-risk in third trimester Family history of congenital anomaly Family history of congenital anomalies Obesity in , antepartum Obesity complicating , childbirth, or the puerperium, antepartum condition or complication documented in this encounter Care Teams Territory Service Representative Relationship Specialty Start Date End Date Melissa Sauceda PA-C [address] [place] [address] PCP - General Physician Cloth Printing Back Tender 12/14/20 documented as of this encounter
--- OUTSIDE RECORDS SUMMARY | 2024-03-03 02:13 | External Medical Summary | Summary of Care ---
Author Name Unknown Organization [facility] Address [address] [facility] [place] [address] Phone [phone] Care Team Providers Care Equip Maint Eng Name Role Phone GrettaMelissa smith MALIKA Primary Care Provider [phone] Reason for Visit * Reason Comments Return Visit 19w6d Encounter Details Date Type Department Care Team (Late st Contact Info) Description 10/16/2023 3:30 PM EDT Office [facility] [address] [facility] [place] [phone] Isabel Cui PA-C [address] [facility] [place], [place] [phone] 20 weeks gestation of *; History of pre-eclampsia in prior , currently ; History of diet-controlled gestational diabetes mellitus; Family history of congenital anomaly; Obesity in , antepartum Allergies No known active allergiesdocumented as of this encounter (statuses as of 10/16/2023) Medications Medication Sig Dispensed Refills Start Date End Date Status Multivitamin Adult Oral Tablet Take by mouth. Active documented as of this encounter (statuses as of 10/16/2023) Active Problems Problem Noted Date Diagnosed Date Elevated glucose tolerance test 08/21/2023 Overview: 3 hour gtt normal. Repeat at 28w. Obesity in , antepartum 08/11/2023 Overview: Pregravid BMI 31.45 Class 1 Last Assessment & Plan: Low risk NIPT appreciated as well as early 1'GTT and 3'GTT. 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 Never true 06/21/2023 [place] Depression Scale Answer Date Recorded [place] Depression Scale Total 5 08/09/2023 The thought of harming myself has occurred to me . Never 08/09/2023 Estimated Date of Delivery Comme nts Yes [...] Sign Reading Time Taken Comments Blood Pressure 116/74 10/16/2023 3:52 PM EDT Pulse - - Temperature 36.8 C (98.2 F) 10/16/2023 3:52 PM ED T Respiratory Rate - - Oxygen Saturation - - Inhaled Oxygen Concentration - - Weight 81.9 kg (180 lb 9.6 oz) 10/16/2023 3:52 P M EDT Height - - Body Mass Index 33.03 08/07/2023 1:49 PM EDT documented in this encounter Progress Notes * Isabel Cui PA-C - 10/16/2023 3:39 PM EDT Monica Villela is a 28 year old female here for her routine OB appointment at 19w6d Her Estimated Date of Delivery: 03/05/24 REVIEW OF SYSTEMS: She affirms movement. Denies vaginal bleeding, LOF, contractions, N/V, headaches PHYSICAL EXAM: Filed Vitals: 10/16/23 1552 BP: 116/74 Temp: 36.8 C (98.2 F) TempSrc: Tympanic Weight: 81.9 kg (180 lb 9.6 oz) +FHT 140s ASSESSMENT/PLAN: 20 weeks gestation of (Primary) History of pre-eclampsia in prior , currently History of diet-controlled gestational diabetes mellitus Family history of congenital anomaly Obesity in , antepartum Follow Up: Return in about 4 weeks (around 11/13/2023). Supervision of - had anatomy u/s with MFM - results WNLs - RTO in 4 weeks Isabel Cui PA-C documented in this encounter Nursing Notes * Zuleyka Malone CMA - 10/16/2023 3:51 PM EDT Chief Complaint Patient presents with Return Visit 19w6d Anatomy scan completed on Monday with MFM documented in this encounter Plan of Treatment Upcoming Encounters Date Type Department Care Team (Late st Contact Info) Description 11/14/2023 3:15 PM EDT Office Visit Gynecology/Obstetrics, [place] [address] [place] [address] Susy Serrano, CN [address] [place] [phone] Health Maintenance Due Date Last Done Comments Depression Screening 06/17/2018 06/17/2017 COVID-19 Vaccine ( season) 2022 Influenza Vaccine (FLU shot) (Season Ended) 2023 05/24/2022, 06/18/2012, 02/08/2011 Pap Smear 12/13/2024 12/13/2021 (Done elsewhere), 12/13/2021, 12/13/2021 DTaP,Tdap,and Td Vaccines (9 - Td or Tdap) 05/11/2032 05/11/2022, 06/18/2014, 08/11/2008, Additional history exists Hepatitis B Completed 01/08/1998, 07/30, 1997 GARDASIL-HPV IMMUNIZATION SERIES Completed 06/18/2014, 06/03/2013, 06/18/2012 MENINGOCOCCAL (MENACTRA/MENVEO) Completed 06/18/2014, 08/11/2008 Gonorrhea / Chlamydia Screen Discontinued 08/09/2023 Pneumococcal Vaccine: Pediatrics (0 to 5 Years) and At-Risk Patients (6 to 64 Years) Aged Out No longer eligible based on patient's age to complete this topic documented as of this encounter Medical Devices Not on filedocumented as of this encounter Visit Diagnoses Diagnosis 20 weeks gestation of - Primary state, incidental History of pre-eclampsia in prior , currently with other poor obstetric history History of diet-controlled gestational diabetes mellitus Family history of congenital anomaly Family history of congenital anomalies Obesity in , antepartum Obesity complicating , childbirth, or the puerperium, antepartum condition or complication documented in this encounter Care Teams Equip Maint Eng Relationship Specialty Start Date End Date Melissa Sauceda, MALIKA [address] [place] [address] PCP - General Physician Fashion Editor 12/14/20 documented as of this encounter
--- OUTSIDE RECORDS SUMMARY | 2024-03-03 02:13 | External Medical Summary ---
Author Name Unknown Address Unknown Organization [id number]:LABORATORY [facility] [place] - [address] [facility] [place] [address] Laboratory Report Ordering Provider Test Date Status AMANDA CREWS 12/08/2023 07:10:16 Final Observation Date Value Abnormality Reference (Units ) Status SYNC LEUKOCYTES IN BLOOD BY AUTOMATED COUNT 12/08/2023 07:10:16 12.85 Above high normal 4.00-10.80 (K/uL) Final Segs 12/08/2023 07:10:16 70.3 40.0-75.0 (%) Final Lymphs % 12/08/2023 07:10:16 22.4 18.0-42.0 (%) Final Monos 12/08/2023 07:10:16 5.0 1.0-11.0 (%) Final Eosinophils 12/08/2023 07:10:16 1.0 0.0-6.0 (%) Final Basos 12/08/2023 07:10:16 0.2 0.0-2.0 (%) Final Immature Granulocyte, Percent 12/08/2023 07:10:16 1.1 0.0-2.0 (%) Final Absolute Segs 12/08/2023 07:10:16 9.03 Above high normal 1.80-7.70 (K/uL) Final Lymphs, absolute 12/08/2023 07:10:16 2.88 1.00-4.80 (K/ul) Final Monos, Abs 12/08/2023 07:10:16 0.64 0.00-1.10 (K/uL) Final Eos, Abs 12/08/2023 07:10:16 0.13 0.00-0.70 (K/uL) Final Basos, Abs 12/08/2023 07:10:16 0.03 0.00-0.20 (K/uL) Final Immature Granulocytes, Number 12/08/2023 07:10:16 0.14 0.00-0.20 (K/uL) Final Performing Location LABORATORY [facility] - [address] [facility] [address]
--- OUTSIDE RECORDS SUMMARY | 2024-03-03 02:13 | External Medical Summary ---
Author Name Unknown Address Unknown Organization [id number]:LABORATORY [facility] [place] - [address] [place] [address] Laboratory Report Ordering Provider Test Date Status AMANDA CREWS 12/08/2023 07:10:16 Final Observation Date Value Abnormality Reference (Units ) Status Iron 12/08/2023 07:10:16 61 33-151 (ug/dL) Final Iron-binding capacity 12/08/2023 07:10:16 540 Above high normal 250-425 (ug/dL) Final Transferrin Sat % 12/08/2023 07:10:16 11 Below low normal 15-55 (%) Final Performing Location LABORATORY [facility] [place] - [address] [place] [address]
--- OUTSIDE RECORDS SUMMARY | 2024-03-03 02:13 | External Medical Summary ---
Author Name Unknown Address Unknown Organization [id number]:[facility]ATORY [facility] - [address] [place] [address] Laboratory Report Ordering Provider Test Date Status ELEONORAAMANDA 12/08/2023 07:10:16 Final Observation Date Value Abnormality Reference (Units ) Status Creatinine 12/08/2023 07:10:16 0.6 0.5-1.0 (mg/dL) Final Glomerular filtration rate/1.73 sq M.predicted [Volume Rate/Area] in Serum, Plasma or Blood by Creatinine-based formula (CKD-EPI) 12/08/2023 07:10:16 >90 >=60 (mL/min) Final eGFR is calculated based on the CKD-EPI 2020 equation. Performing Location LABORATORY [facility] - [address] [place] [address]
--- OUTSIDE RECORDS SUMMARY | 2024-03-03 02:13 | External Medical Summary | Summary of Care ---
Author Name Unknown Organization [facility] Address [address] [place] [address] Phone [phone] Care Team Providers Care Measurement Advisor Name Role Phone GrettaMelissa smith MALIKA Primary Care Provider [phone] Encounter Details Date Type Department Care Team (Late st Contact Info) Description 11/27/2023 Orders Only Outcomes Research Department [address] [place], [place] [phone] Dorothy Chaidez CHRA [employer] Other*[id number] Allergies No known active allergiesdocumented as of this encounter (statuses as of 11/27/2023) Medications Medication Sig Dispensed Refills Start Date End Date Status Multivitamin Adult Oral Tablet Take by mouth. Active Aspirin 81 MG Oral Tablet Delayed Release Take 1 Tablet by mouth in the morning. Active documented as of this encounter (statuses as of 11/27/2023) Active Problems Problem Noted Date Diagnosed Date [...] as of this encounter (statuses as of 11/27/2023) Resolved Problems Problem Noted Date Diagnosed Date [...] as of this encounter (statuses as of 11/27/2023) Immunizations Name Administration Dates Next Due HPV [...] money to get more. Never true 06/21/2023 [place] Depression Scale Answer Date Recorded [place] Depression Scale Total 5 08/09/2023 The thought [...] 12/12/2023 2:30 PM EDT Office Visit Gynecology/Obstetrics, [place] [address] [address] Deja Irizarry MD [address] [place] [address] Scheduled Orders Name Type Priority Associated Diagnoses Orde r Schedule MYCODE INITIAL ADULT Lab Routine [facility] Other*[id number] Expected: 11/27/2023 (Approximate), Expires: 12/16/2024 Health Maintenance Due Date Last Done Comments [...] this encounter Visit Diagnoses Diagnosis [employer] [facility] Other*[id number] documented in this encounter Care Teams Measurement Advisor Relationship Specialty Start Date End Date SohailJuly MALIKA Rosado [address] [place], [place] [address] PCP - General Physician Freelance Translator 12/14/20 documented as of this encounter
--- OUTSIDE RECORDS SUMMARY | 2024-03-03 02:13 | External Medical Summary ---
Author Name Unknown Address Unknown Organization K01:LABORATORY [facility] [place] - [address] [facility] [place] [address] Laboratory Report Ordering Provider Test Date Status AMANDA CREWS 12/08/2023 07:10:16 Final Observation Date Value Abnormality Reference (Units ) Status Ferritin 12/08/2023 07:10:16 17 13-150 (ng /mL) Final Performing Location LABORATORY [facility] - [address] [place] [address]
--- OUTSIDE RECORDS SUMMARY | 2024-03-03 02:13 | External Medical Summary ---
Author Name Unknown Address Unknown Organization K01:LABORATORY [facility] [place] - [facility] [place] [address] Laboratory Report Ordering Provider Test Date Status AMANDA CREWS 12/08/2023 07:10:16 Final Observation Date Value Abnormality Reference (Units ) Status Retic, % (auto) 12/08/2023 07:10:16 2.51 Above high normal 0.80-1.90 (%) Final Reticulocytes, Absolute 12/08/2023 07:10:16 86.3 31.3-100.1 (K/uL) Final Reticulocyte fraction, immature 12/08/2023 07:10:16 27.5 Above high normal 2.5-20.6 (%) Final Reticulocyte HGB 12/08/2023 07:10:16 33.8 29.7-37.4 (pg) Final Performing Location LABORATORY [facility] - [address] [place] [address]
--- OUTSIDE RECORDS SUMMARY | 2024-03-03 02:13 | External Medical Summary | Summary of Care ---
Author Name Unknown Organization [facility] Address [address] [place] [address] Phone [phone] Care Team Providers Care Comber Fixer Name Role Phone GrettaMelissa smith MALIKA Primary Care Provider [phone] Reason for Visit * Reason Onset Date Comments Forms Request 11/03/2023 Encounter Details Date Type Department Care Team (Late st Contact Info) Description 11/03/2023 Telephone Gynecology/Obstetrics [facility] [address] [place] [address] Isabel Cui PA-C [address] [place], [place] [phone] Forms Request Allergies No known active allergiesdocumented as of this encounter (statuses as of 11/03/2023) Medications Medication Sig Dispensed Refills Start Date End Date Status Multivitamin Adult Oral Tablet Take by mouth. Active documented as of this encounter (statuses as of 11/03/2023) Active Problems Problem Noted Date Diagnosed Date [...] as of this encounter (statuses as of 11/03/2023) Resolved Problems Problem Noted Date Diagnosed Date [...] as of this encounter (statuses as of 11/03/2023) Immunizations Name Administration Dates Next Due HPV [...] money to get more. Never true 06/21/2023 [place] Depression Scale Answer Date Recorded [place] Depression Scale Total 5 08/09/2023 The thought [...] encounter Miscellaneous Notes * Telephone Encounter - Ashley Rao OSA - 11/03/2023 9:42 AM EDT FMLA forms filled out singed and faxed back to the employer Left pt a message on cell that this was done and she can vegetable picker copies at the electrician front documented in this encounter Plan of Treatment Upcoming Encounters Date Type Department Care Team (Late st Contact Info) Description 11/14/2023 3:15 PM EDT Office Visit Gynecology/Obstetrics, [place] [address] [place] [address] [place] [address] Susy Serrano CNM [address] [place] [phone] Health Maintenance Due Date Last Done Comments [...] filedocumented as of this encounter Care Teams Comber Fixer Relationship Specialty Start Date End Date SohailJuly MALIKA Rosado [facility] [address] [place] [address] PCP - General Physician Cutting Department Supervisor 12/14/20 documented as of this encounter
--- OUTSIDE RECORDS SUMMARY | 2024-03-03 02:13 | External Medical Summary | Summary of Care ---
Author Name Unknown Organization [facility] Address [address] [facility] [place] [address] Phone [phone] Care Team Providers Care Hospital Administrator Name Role Phone GrettaMelissa smith MALIKA Primary Care Provider [phone] Encounter Details Date Type Department Care Team (Late st Contact Info) Description 10/13/2023 Telephone Gynecology/Obstetrics, [place] [address] [facility] [place] [address] Isabel Cui PA-C [address] [facility] [place] [address] Allergies No known active allergiesdocumented as of this encounter (statuses as of 11/14/2023) Medications Medication Sig Dispensed Refills Start Date End Date Status Multivitamin Adult Oral Tablet Take by mouth. Active documented as of this encounter (statuses as of 11/14/2023) Active Problems Problem Noted Date Diagnosed Date Elevated glucose tolerance test 08/21/2023 Overview: 3 hour gtt normal. Repeat at 28w. Obesity in , antepartum 08/11/2023 Overview: Pregravid BMI 31.45 Class 1 Last Assessment & Plan: Low risk NIPT appreciated as well as early 1'GTT and 3'GTT. 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 Never true 06/21/2023 [place] Depression Scale Answer Date Recorded [place] Depression Scale Total 5 08/09/2023 The thought [...] 11/14/2023 3:15 PM EDT Office Visit Gynecology/Obstetrics, [place] [address] [address] Susy Serrano CNM [address] [phone] Health Maintenance Due Date Last Done Comments [...] filedocumented as of this encounter Care Teams Hospital Administrator Relationship Specialty Start Date End Date SohailJuly JORGITO RosadoC [address] [place] [address] PCP - General Physician Fur Blower Operator 12/14/20 documented as of this encounter
--- OUTSIDE RECORDS SUMMARY | 2024-03-03 02:13 | External Medical Summary | Summary of Care ---
Author Name Unknown Organization [facility] Address [address] [facility] [place] [address] Phone [phone] Care Team Providers Care Hand Packager Name Role Phone GrettaMelissa smith MALIKA Primary Care Provider [phone] Encounter Details Date Type Department Care Team (Late st Contact Info) Description 07/25/2023 Telephone Gynecology/Obstetrics [facility] [address] [place], [place] [phone] June Yanes MD [address] [place] [address] Allergies No known active allergiesdocumented as of this encounter (statuses as of 10/24/2023) Medications Medication Sig Dispensed Refills Start Date End Date Status hyoscyamine (LEVSIN) 0.125 MG SL tablet TAKE 1 TABLET 4 TIMES A DAY 100 Tab 2 6 08/09/19 24 Discontinued Naproxen Sodium 550 MG Tablet Take 1 Tab by mouth 2 times a day as needed for Pain. With food 30 Tab 1 8 08/07/19 24 Discontinued(Med ication List Clean Up) Triamcinolone Acetonide 0.5 % External CreamIndications:Lo craig reaction to bee sting, accidental or unintentional, initial encounter Apply topically to affected area 2 times a day. To affected area for up to two weeks. 60 g 1 08/09/19 24 Discontinued Pantoprazole Sodium 40 MG Oral Tablet Delayed Release (Protonix)Indicatio ns:GERD (gastroesophageal reflux disease) TAKE 1 TABLET 30 MINUTES BEFORE FIRST MEAL OF THE DAY. DO NOT CRUSH, S PLIT OR CHEW. 30 Tablet 5 2 08/09/19 24 Discontinued Famotidine 20 MG Oral Tablet (Pepcid)Indications :GERD (gastroesophageal reflux disease) TAKE 1 TABLET BY MOUTH IN THE MORNING 30 Tablet 3 3 08/09/19 24 Discontinued Propranolol HCl 10 MG Oral Tablet (Inderal)Indication s:Intractable migraine with aura with status migrainosus,Palpita tions Take 1 Tablet by mouth as needed for Anxiety. 4 08/09/19 24 Discontinued Venlafaxine HCl ER 37.5 MG Oral Capsule Extended Release 24 Hour (Effexor XR)Indications:RICO (generalized anxiety disorder) Take 1 Capsule by mouth in the morning. 4 08/07/19 24 Discontinued(Med ication List Clean Up) Drospirenone-Ethiny l Estradiol 3-0.02 MG Oral TabletIndications:G eneral counseling for prescription of oral contraceptives Take 1 Tablet by mouth in the morning. 3 08/07/19 24 Discontinued(Med ication List Clean Up) Rizatriptan Benzoate 10 MG Oral Tablet (Maxalt)Indications :Intractable migraine with aura with status migrainosus Take 1 Tablet by mouth as needed for Migraine. at onset of headache, may repeat every 2 hours up to 2 times. Up to 3 tablets in 24 hours 20 Tablet 3 4 08/09/19 24 Discontinued Ondansetron 4 MG Oral Tablet Disintegrating (Zofran) Place 1 Tablet on tongue every 8 hours as needed for Nausea. dissolve on tongue. 20 Tablet 1 4 08/07/19 24 Discontinued(Med FoodShootrtion List Clean Up) documented as of this encounter (statuses as of 10/24/2023) Active Problems Problem Noted Date Diagnosed Date Elevated glucose tolerance test 08/21/2023 Overview: 3 hour gtt normal. Repeat at 28w. Obesity in , antepartum 08/11/2023 Overview: Pregravid BMI 31.45 Class 1 Last Assessment & Plan: Low risk NIPT appreciated as well as early 1'GTT and 3'GTT. 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 Never true 06/21/2023 [place] Depression Scale Answer Date Recorded [place] Depression Scale Total 5 08/09/2023 The thought [...] ages 0-17 years) Not on file 06/21/2023 Sex and Gender Information Value Date Recorded Sex Assigned at Female 08/23/2018 3:28 PM EDT Gender Identity Female 08/23/2018 3:28 PM EDT Sexual Orientation Straight 08/23/2018 3: 28 PM EDT Job Start Date Occupation Industry Not on file Not on file Not on file documented as of this encounter Miscellaneous Notes * Telephone Encounter - June Yanes MD - 07/25/2023 2:58 PM EDT Along with the above measures you recommended, pt can try Zofran as needed. I am sending pres to her pharmacy. Please tell the pt to peanut picker the pres. * Telephone Encounter - Alix Varela LPN - 07/25/2023 1:05 PM EDT Phone call from pt. Pt calling with complaints of daily/ongoing nausea. Pt early , LMP 05/29/2023. Pt reports that in her last she experienced nausea and vomiting where she was in and out of the hospital for fluids and evaluation up to 20 weeks gestation. Pt reports that she has done Unisom and vitamin B 6. For almost 2 weeks. Pt also stating she has been trying sea bands and jovita candies with minimal relief. Pt reports vomiting roughly 1 time daily. Advised pt to continue with vitamin B 6 and Unisom combo , that it can take roughly 14 days to takeaffect. Discussed that water sometimes can be irritating to the belly as well. Avoid any fried, spicy rich foods. Pt scheduled for in person appointment 08/09/2023. Pt aware to continue to monitor for now, nausea can be very normal in . Pt aware if she isunable to keep any foods or fluids down for 24 hours to be seen and evaluated in ER. Alix Varela LPN 07/25/2023 1:10 PM documented in this encounter Plan of Treatment Upcoming Encounters Date Type Department Care Team (Late st Contact Info) Description 11/14/2023 3:15 PM EDT Office Visit Gynecology/Obstetrics, [place] [address] [facility] [place] [address] Susy Serrano CN [address] [place] [phone] Health Maintenance Due Date Last Done Comments [...] filedocumented as of this encounter Care Teams Hand Packager Relationship Specialty Start Date End Date Sohail July Ashlee, PAJosseC [address] [place] [address] PCP - General Physician Campus Recruiting Coordinator 12/14/20 documented as of this encounter
--- OUTSIDE RECORDS SUMMARY | 2024-03-03 02:13 | External Medical Summary | Summary of Care ---
Author Name Unknown Organization [facility] Address [address] [place] [address] Phone [phone] Care Team Providers Care Brick Maker Name Role Phone GrettaMelissa smith MALIKA Primary Care Provider [phone] Reason for Visit * Reason Comments Return Visit 15w0d Encounter Details Date Type Department Care Team (Late st Contact Info) Description 09/12/2023 1:00 PM EDT Office Visit Gynecology/Obstetric [place] [facility] [address] [facility] [place] [phone] Isabel Cui PA-C [address] [facility] [place], [place] [phone] 15 weeks gestation of *; History of pre-eclampsia in prior , currently ; History of diet-controlled gestational diabetes mellitus; Family history of congenital anomaly; Obesity in , antepartum Allergies No known active allergiesdocumented as of this encounter (statuses as of 09/12/2023) Medications Medication Sig Dispensed Refills Start Date End Date Status Multivitamin Adult Oral Tablet Take by mouth. 0 Active documented as of this encounter (statuses as of 09/12/2023) Active Problems Problem Noted Date Diagnosed Date Elevated glucose tolerance test 08/21/2023 Overview: 3 hour gtt normal. Repeat at 28w. Obesity in , antepartum 08/11/2023 Overview: Pregravid BMI 31.45 Class 1 Last Assessment & Plan: CONSIDERATIONS: Discussed obstetrical risks associated with class I obesity (pre- BMI of 30 to 34.9) Reviewed that the accuracy of ultrasound at diagnosing anomalies is significantly decreased for women with an increased BMI. RECOMMENDATIONS: Recommend restricting weight gain during to 11-20 pounds. Consider referral for nutrition consult. Recommend evaluation for signs and symptoms (snoring, excessive daytime sleepiness witnessed apnea or unexplained hypoxia) of obstructive sleep apnea. If any of these are present, referral to Sleep Medicine specialist for further evaluation should be considered. Recommend performing gestational diabetes mellitus screen at first visit and repeat again at 26-28 weeks if early screen is normal. Recommend Maternal- Medicine ultrasound for anatomy at 20 weeks. 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 [facility] genetic counseling referral placed History of pre-eclampsia [...] as of this encounter (statuses as of 09/12/2023) Resolved Problems Problem Noted Date Diagnosed Date [...] as of this encounter (statuses as of 09/12/2023) Immunizations Name Administration Dates Next Due HPV Vaccine, 4-Valent 06/18/2014,06/03/2013,06/01 Meningococcal Conjugate Vacc ine (Menactra/Menveo) 06/18/2014,08/11/2008 Seasonal Influenza Intranasal 06/18/2012, 011 Seasonal Influenza Virus Vac cine, Unspecified Formulation 05/24/2022 TDAP (age 10 and older)(Boostrix) 06/18/2014 TDAP (age 11 and older)(Adacel) 05/11/2022,08/11 documented as of this encounter Social History [...] to get more. Never true 06/21/2023 [place] Depression Scale Answer Date Recorded [place] Depression Scale Total 5 08/09/2023 The thought [...] Sign Reading Time Taken Comments Blood Pressure 124/62 09/12/2023 1:01 PM EDT Pulse - - Temperature - - Respiratory Rate - - Oxygen Saturation - - Inhaled Oxygen Concentration - - Weight 79 kg (174 lb 3.2 oz) 09/12/2023 1:01 PM EDT Height - - Body Mass Index 31.86 08/07/2023 1:49 PM EDT documented in this encounter Progress Notes * Isabel Cui PA-C - 09/12/2023 1:09 PM EDT Monica Villela is a 28 year old female here for her routine OB appointment at 15w0d Her Estimated Date of Delivery: 03/05/24 REVIEW OF SYSTEMS: She denies movement. Denies vaginal bleeding, LOF, contractions, N/V, headaches Low risk Qnatal completed. Declines MSAFP. Has anatomy scan scheduled on 10/12. Taking ASA 81mg daily. PHYSICAL EXAM: Filed Vitals: 09/12/23 1301 BP: 124/62 Weight: 79 kg (174 lb 3.2 oz) +FHT 150s ASSESSMENT/PLAN: 15 weeks gestation of (Primary) History of pre-eclampsia in prior , currently History of diet-controlled gestational diabetes mellitus Family history of congenital anomaly Obesity in , antepartum Follow Up: Return in about 4 weeks (around 10/10/2023) for GABINO. | For: GABINO Supervision of - anatomy u/s due in 4 weeks - scheduled with MFM - discussed MSAFP and role in detecting open neural tube defects. Patient declines. - RTO in 4 weeks Isabel Cui PA-C documented in this encounter Nursing Notes * Zuleyka Malone CMA - 09/12/2023 1:01 PM EDT Chief Complaint Patient presents with Return Visit 15w0d Pt voices no concerns for today documented in this encounter Plan of Treatment Upcoming Encounters Date Type Department Care Team (Late st Contact Info) Description 10/13/2023 7:30 AM EDT Office Visit Instructional Services Librarian OB Maternal Medicine [facility] [place] [address] [place] [address] Dr [address] [place] [address] Britt Saab, DO [address] [place] [address] 10/13/2023 7:30 AM EDT Imaging Maternal Medicine [facility] [place] [address] [place] [address] [address] [place] [address] 10/16/2023 3:30 PM EDT Office Visit Gynecology/Obstetrics, [place] [address] [facility] [place], [place] [phone] Isabel Cui PA-C [address] [place] [address] Health Maintenance Due Date Last Done Comments Depression Screening 06/17/2018 06/17/2017 COVID-19 Vaccine (2022- season) 2022 Influenza Vaccine (FLU shot) (Season [...] as of this encounter Visit Diagnoses Diagnosis 15 weeks gestation of - Primary state, incidental History of pre-eclampsia in prior , currently with other poor obstetric history History of diet-controlled gestational diabetes mellitus Family history of congenital anomaly Family history of congenital anomalies Obesity in , antepartum Obesity complicating , childbirth, or the puerperium, antepartum condition or complication documented in this encounter Care Teams Brick Maker Relationship Specialty Start Date End Date Sohail July MALIKA Rosado [facility] [address] [place] [address] PCP - General Physician Intelligence Chief 12/14/20 documented as of this encounter
--- OUTSIDE RECORDS SUMMARY | 2024-03-03 02:13 | External Medical Summary | Summary of Care ---
Author Name Unknown Organization [facility] Address [address] [facility] [place] [address] Phone [phone] Care Team Providers Care Manager Intensive Care Name Role Phone Melissa Sauceda MALIKA Primary Care Provider [phone] Reason for Visit * Reason Onset Date Comments Order Request 07/20/2023 Dating ultrasoun d Encounter Details Date Type Department Care Team (Late st Contact Info) Description 07/20/2023 Telephone Gynecology/Obstetrics Kelly Macias [address] [place] [address] Isabel Cui PA-C [address] [facility] [place] [address] Order Request (Dating ultrasound ) Allergies No known active allergiesdocumented as of this encounter (statuses as of 10/19/2023) Medications No known medicationsdocumented as of this encounter (statuses as of 10/19/2023) Active Problems Problem Noted Date Diagnosed Date Elevated glucose tolerance test 08/21/2023 Overview: 3 hour gtt normal. Repeat at 28w. Obesity in , antepartum 08/11/2023 Overview: Pregravid BMI 31.45 Class 1 Last Assessment & Plan: Low risk NIPT appreciated as well as early 1'GTT and 3'GTT. 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 Never true 06/21/2023 [place] Depression Scale Answer Date Recorded [place] Depression Scale Total 5 08/09/2023 The thought [...] encounter Miscellaneous Notes * Telephone Encounter - Isabel Cui PA-C - 07/20/2023 3:44 PM EDT Dating scan order placed * Telephone Encounter - Kacie Weinberg LPN - 07/20/2023 1:13 PM EDT Please sign pending dating US. Pt is scheduled for US to be done on 08/09/2023 documented in this encounter Plan of Treatment Upcoming Encounters Date Type Department Care Team (Late st Contact Info) Description 11/14/2023 3:15 PM EDT Office Visit Gynecology/Obstetrics, [place] [address] [place] [address] Susy Serrano CNM [address] [place] [phone] Health Maintenance Due Date Last Done Comments [...] Not on filedocumented as of this encounter Results * US PREG SINGLE/1ST GEST, LESS THAN 14 WKS (08/09/2023 1:08 PM EDT) Anatomical Region Laterality Modality Pelvis, Body Ultrasound 08/09/2023 1:20 PM EDT Impressions 08/09/2023 1:18 PM EDT IMPRESSION Single live intrauterine gestation with MANDI of 02/28/2024. Narrative 08/09/2023 1:18 PM EDT EXAM US PREG SINGLE/1ST GEST, LESS THAN 14 WKS-08/09/2023 1:08 pm HISTORY dating COMPARISON None TECHNIQUE Real time transabdominal sonographic imaging of the pelvis was performed. FINDINGS CROWN RUMP LENGTH: 40.2 mm equivalent to 11 weeks 0 days. MANDI (CRL): 02/28/2024 HEART RATE: 172 bpm YOLK SAC: Not seen MYOMETRIUM: Unremarkable RIGHT OVARY: Measures 2.6 cmx1.8 cmx2.0 cm, 4.7 ml. Unremarkable LEFT OVARY: Not seen MISCELLANEOUS: No significant free fluid. Procedure Note Bethel Jean-Baptiste MD - 08/09/2023 EXAM US PREG SINGLE/1ST GEST, LESS THAN 14 WKS-08/09/2023 1:08 pm HISTORY dating COMPARISON None TECHNIQUE Real time transabdominal sonographic imaging of the pelvis wasperformed. FINDINGS CROWN RUMP LENGTH: 40.2 mm equivalent to 11 weeks 0 days. MANDI (CRL): 02/28/2024 HEART RATE: 172 bpm YOLK SAC: Not seen MYOMETRIUM: Unremarkable RIGHT OVARY: Measures 2.6 cmx1.8 cmx2.0 cm, 4.7 ml. Unremarkable LEFT OVARY: Not seen MISCELLANEOUS: No significant free fluid. IMPRESSION IMPRESSION Single live intrauterine gestation with MANDI of 02/28/2024. Isabel Cui PA-C RAD ULTRASOUND documented in this encounter Visit Diagnoses Diagnosis Early stage of - Primary Early stage of documented in this encounter Care Teams Manager Intensive Care Relationship Specialty Start Date End Date SohailJuly MALIKA Rosado [address] [facility] [place] [address] PCP - General Physician Architect 12/14/20 documented as of this encounter
--- OUTSIDE RECORDS SUMMARY | 2024-03-03 02:13 | External Medical Summary | Summary of Care ---
Author Name Unknown Organization [facility] Address [address] [place] [address] Phone [phone] Care Team Providers Care Campus Safety Officer Name Role Phone Grettasarah July MALIKA Primary Care Provider [phone] Encounter Details Date Type Department Care Team (Late st Contact Info) Description 10/13/2023 7:30 AM EDT Office Visit Neurophysiologist OB Maternal Medicine [facility] [place] [address] [place] [address] [address] [place], [place] [phone] Britt Saab, DO [address] [place], [place] [phone] Obesity in , antepartum*; Encounter for anatomic survey; Family history of congenital anomaly; 19 weeks gestation of ; History of diet-controlled gestational diabetes mellitus Allergies No known active allergiesdocumented as of this encounter (statuses as of 10/13/2023) Medications Medication Sig Dispensed Refills Start Date End Date Status Multivitamin Adult Oral Tablet Take by mouth. Active documented as of this encounter (statuses as of 10/13/2023) Active Problems Problem Noted Date Diagnosed Date Elevated glucose tolerance test 08/21/2023 Overview: 3 hour gtt normal. Repeat at 28w. Obesity in , antepartum 08/11/2023 Overview: Pregravid BMI 31.45 Class 1 Last Assessment & Plan: Low risk NIPT appreciated as well as early 1'GTT and 3'GTT. 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 Never true 06/21/2023 [place] Depression Scale Answer Date Recorded [place] Depression Scale Total 5 08/09/2023 The thought [...] as of this encounter Progress Notes * Britt Saab DO - 10/13/2023 8:36 AM EDT MATERNAL MEDICINE VISIT Monica Villela presented today at 19w3d for an ultrasound and follow-up of her high risk . She was seen for the following indications: Problem List Items Addressed This Visit History of diet-controlled gestational diabetes mellitus Family history of congenital anomaly We reviewed that the risk for congenital [...] not suggest any evidence of cardiac abnormality. Obesity in , antepartum - Primary Low risk NIPT appreciated as well as early 1'GTT and 3'GTT. Other Visit Diagnoses Encounter for anatomic survey 19 weeks gestation of We reviewed today's ultrasound findings. 19w3d for anatomical survey with echocardiogram. Normal growth with no ultrasonic evidence of structural or cardiac abnormalities. (For full details, please refer to ultrasound report provided separately). Ms. Villela's questions were answered to her satisfaction. She was advised to contact our office or her OB provider for any additional questions regarding her . RECOMMENDATIONS: Follow up with MFM for ultrasound as clinically indicated. Thank you for allowing us to participate in the care of this patient. Please call with any questions. Britt Saab DO 10/13/2023 8:37 AM documented in this encounter Miscellaneous Notes * Assessment & Plan Note - Britt Saab DO - 10/13/2023 8:32 AM EDT Associated Problem(s): Family history of congenital anomaly We reviewed that the risk for congenital [...] not suggest any evidence of cardiac abnormality. * Assessment & Plan Note - Britt Saab DO - 10/13/2023 8:21 AM EDT Associated Problem(s): Obesity in , antepartum Low risk NIPT appreciated as well as early 1'GTT and 3'GTT. documented in this encounter Plan of Treatment Upcoming Encounters Date Type Department Care Team (Late st Contact Info) Description 10/16/2023 3:30 PM EDT Office Visit Gynecology/Obstetrics, [place] [address] [place] [address] Isabel Cui PA-C [address] [place] [address] Health Maintenance Due Date Last Done Comments [...] or the puerperium, antepartum condition or complication Encounter for anatomic survey Family history of congenital anomaly Family history of congenital anomalies 19 weeks gestation of state, incidental History of diet-controlled gestational diabetes mellitus documented in this encounter Care Teams Campus Safety Officer Relationship Specialty Start Date End Date SohailJuly MALIKA Rosado [address] [place] [address] PCP - General Physician Mail Handler Equipment Operator 12/14/20 documented as of this encounter
--- OUTSIDE RECORDS SUMMARY | 2024-03-03 02:13 | External Medical Summary | Summary of Care ---
Author Name Unknown Organization [facility] Address [address] [place] [address] Phone [phone] Care Team Providers Care Wash Oil Pump Operator Helper Name Role Phone GrettaMelissa smith MALIKA Primary Care Provider [phone] Reason for Visit * Reason Comments Return Visit 24w0d Encounter Details Date Type Department Care Team (Late st Contact Info) Description 11/14/2023 3:15 PM EDT Office Visit Gynecology/Obstetric Kelly olvera [address] [facility] [place] [address] Susy Serrano [facility] [address] [place] [phone] History of pre-eclampsia in prior , currently *; History of diet-controlled gestational diabetes mellitus; Family history of congenital anomaly; Obesity in , antepartum; Supervision of high-risk , second trimester Allergies [...] 08/10/2023 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 Never true 06/21/2023 Martin Depression Scale Answer Date Recorded Martin Depression Scale Total 5 08/09/2023 The thought [...] No 06/21/2023 Does the household have a [employer] source of income? (Household - for ages [...] Sign Reading Time Taken Comments Blood Pressure 122/62 11/14/2023 3:28 PM EDT Pulse - - Temperature 36.8 C (98.2 F) 11/14/2023 3:28 PM ED T Respiratory Rate - - Oxygen Saturation - - Inhaled Oxygen Concentration - - Weight 84 kg (185 lb 3.2 oz) 11/14/2023 3:28 PM EDT Height - - Body Mass Index 33.87 08/07/2023 1:49 PM EDT documented in this encounter Progress Notes * Susy Serrano CNM - 11/14/2023 3:15 PM EDT Monica Villela is a 28 year old female here for her routine OB appointment at 24w0d Her Estimated Date of Delivery: 03/05/24 REVIEW OF SYSTEMS: She affirms movement. Denies vaginal bleeding, LOF, contractions, N/V, headaches PHYSICAL EXAM: Filed Vitals: 11/14/23 1528 BP: 122/62 Temp: 36.8 C (98.2 F) TempSrc: Tympanic Weight: 84 kg (185 lb 3.2 oz) ASSESSMENT/PLAN: History of pre-eclampsia in prior , currently (Primary) History of diet-controlled gestational diabetes mellitus Family history of congenital anomaly Obesity in , antepartum Supervision of high-risk , second trimester - CBC WITH WBC DIFFERENTIAL AND ANEMIA REFLEX WORKUP; Future; Expected date: 11/14/2023 - SYPHILIS ANTIBODY SCREEN WITH REFLEX TO RPR; Future; Expected date: 11/14/2023 - GESTATIONAL GLUCOSE TOLERANCE, 3 HOUR; Future; Expected date: 11/14/2023 Supervision of - we reviewed and ordered 3hr GTT and CBC for patient to complete between now and her next visit - reviewed recommendation for tdap vaccine at next visit - No rhogam at next visit - RTO in 4 weeks Susy Serrano CNM documented in this encounter Plan of Treatment Upcoming Encounters Date Type Department Care Team (Late st Contact Info) Description 12/12/2023 2:30 PM EDT Office Visit Gynecology/Obstetrics, [place] [address] [address] Deja Irizarry MD [address] [address] Scheduled Orders Name Type Priority Associated Diagnoses Orde r Schedule CBC WITH WBC DIFFERENTIAL AND ANEMIA REFLEX WORKUP Lab Routine Supervision of high-risk , second trimester Expected: 11/14/2023 (Approximate), Expires: 11/13/2024 SYPHILIS ANTIBODY SCREEN WITH REFLEX TO RPR Lab Routine Supervision of high-risk , second trimester Expected: 11/14/2023 (Approximate), Expires: 11/13/2024 GESTATIONAL GLUCOSE TOLERANCE, 3 HOUR Lab Routine Supervision of high-risk , second trimester Expected: 11/14/2023, Expires: 11/13/2024 Health Maintenance Due Date Last Done Comments [...] as of this encounter Visit Diagnoses Diagnosis History of pre-eclampsia in prior , currently - Primary with other poor obstetric history History of diet-controlled gestational diabetes mellitus Family history of congenital anomaly Family history of congenital anomalies Obesity in , antepartum Obesity complicating , childbirth, or the puerperium, antepartum condition or complication Supervision of high-risk , second trimester documented in this encounter Care Teams Wash Oil Pump Operator Helper Relationship Specialty Start Date End Date SohailJuly MALIKA Rosado [address] [place] [address] PCP - General Physician Ring Maker 12/14/20 documented as of this encounter
--- OUTSIDE RECORDS SUMMARY | 2024-03-03 02:13 | External Medical Summary ---
Author Name Unknown Address Unknown Organization [id number]:[facility] [place] - [address] [place] [id number] Laboratory Report Ordering Provider Test Date Status AMANDA CREWS 12/08/2023 07:10:16 Final Observation Date Value Abnormality Reference (Units ) Status Vitamin B12 12/08/2023 07:10:16 211 Below low normal 2 32-1245 (pg/mL) Final Performing Location [facility] [place] - [address] [place] [address]
[2024-03-03] MEDS ORDERED: OXYTOCIN 30 UNITS/NSS 30 UNITS/500 ML BAG IV PRN ×3 (02:50→13:47)
[2024-03-03] MEDS ORDERED: LIDOCAINE 1% LOCAL 20 ML VIAL INFIL PRN ×2 (02:50→09:17)
[2024-03-03 03:41] LABS: Hematocrit (blood only) 37.8 % (37.0-47.0); Hemoglobin 12.5 g/dl (12.0-16.0); Mean Corpuscular Hemoglobin 30.3 pg (25.0-34.0); Mean Corpuscular Hgb Conc 33.1 g/dL (32.0-36.0); Mean Corpuscular Volume 91.5 fL (80.0-100.0); Mean Platelet Volume 10.8 fL (9.4-12.4); Platelet Count 268 K/uL (130-400); RDW Coefficient of Variation 13.7 % (11.5-14.5); RDW Standard Deviation 45.5 fL (36.4-46.3); Red Blood Count 4.13 M/uL (4.20-5.40); White Blood Count 11.85 K/ul (4.8-10.8)
[2024-03-03] MEDS: LACTATED RINGER'S 1,000 ML IV SCH (07:25)
[2024-03-03] MEDS: LIDOCAINE 2%/EPINEPHRINE 1:200,000 20 ML PF ONE (08:07)
[2024-03-03] MEDS: fentANYL 2 MCG/ML BUPIVacaine 0.125%-NSS 100ML BAG ONE (08:08)
[2024-03-03] MEDS: fentaNYL citrate PF 100 MCG/2 ML VIAL ONE (08:13)
[2024-03-03] MEDS: ePHEDrine sulfate 50 MG/ML AMP ONE (08:13)
--- NOTE | 2024-03-03 08:13 | Anesthesiology Consultation ---
Date of Service March 03, 2024 Assessment & Plan Chart Review Chart Review: Acceptable Risk for Labor Epidural Consults Requested none ASA [id number] Proposed Anesthesia Anesthesia Type: Labor Epidural History Height/Weight Height: 5 ft 2 in Weight: 88.904 kg Allergies Allergy/AdvReac Type Severity Reaction Status Date / Time No Known Allergies Allergy Verified 08/25/22 13:40 Medications Home Medications Medication Instructions Recorded Confirmed Last Taken bclqacjp-ayp-jtrh-FA-Ca carb-vit K 1 tab PO HS 08/04/22 08/25/22 08/13/22 18 mg iron-400 mcg-500 mg tablet drospirenone 3 mg-ethinyl 1 tab PO DAILY #84 tabs 08/25/22 08/25/22 Unknown estradiol 0.02 mg tablet (JEROME (28)) iron,carbonyl 65 mg-vitamin C 125 1 tab PO DAILY 03/03/24 03/03/24 03/02/24 21:00 mg tablet,delayed release (Vitron-C) mecobalamin (vitamin B12) 1,000 1,000 mcg PO DAILY 03/03/24 03/03/24 03/02/24 09:00 mcg chewable tablet (B12 Active) hqeptnen-omb-Mg-FA 1 mg 1 tab PO DAILY 03/03/24 03/03/24 03/02/24 21:00 tablet Active Medications Generic Name Dose Route Start Last Admin Trade Name Freq PRN Reason Stop Dose Admin Lactated Ringer's 1,000 mls @ 50 mls/hr 03/03/24 07:30 03/03/24 08:09 Lr IV 03/04/24 07:29 999 mls/hr .Q20H NII Infusion Past Medical History Medical History Borderline high blood pressure AT END OF / ORDERED BP RE CHECK 1 WK AFTER DELIVERY - RE-CHECK DONE AND WAS NORMAL History of gestational diabetes Recent childbirth 3 WEEKS AGO / VAGINAL Acid reflux Past Family History Family History Other Family history of diabetes mellitus in father No significant family history Denies family history of Ovarian cancer Breast cancer Colorectal cancer Past Surgical History Surgical History (Updated 03/03/24 @ 06:46 by Emmanuelle Linn RN) History of cholecystectomy After 1st child in 2022 History of tonsillectomy and adenoidectomy History of endoscopy FLAP ON TOP OF MY ESOPHAGUS DOESN'T CLOSE H/O wisdom tooth extraction Social History Smoking Status: Never smoker Do You Dip or Chew Tobacco: No Hx Alcohol Use: No Hx Substance Use: No substance use type: does not use Physical Exam Vital Signs Last Vital Signs Temp 36.8 C 03/03/24 06:30 Pulse 104 H 03/03/24 08:12 Resp 18 03/03/24 06:30 BP 113/65 03/03/24 08:12 Pulse Ox 100 03/03/24 08:12 Testing Laboratory Results 03/03/24 03:17 Blood Type O Positive 03/03/24 03:17 Antibody Screen NEGATIVE 03/03/24 03:17 03/03/24 02:46 POC Glucose 104 H
[2024-03-03] MEDS: BUPIVACAINE 0.25% PF 30 ML VIAL ONE (08:14)
[2024-03-03] MEDS: SODIUM CHLORIDE 0.9% PF INJ 10 ML VIAL ONE (08:14)
[2024-03-03] MEDS ORDERED: SODIUM CHLORIDE 0.9% PF INJ 10 ML VIAL EPI PRN (08:15)
[2024-03-03] MEDS ORDERED: LIDOCAINE 2% MPF LOCAL 5 ML VIAL EPI PRN (08:15)
[2024-03-03] MEDS ORDERED: fentANYL 2 MCG/ML BUPIVacaine 0.125%-NSS 100ML BAG EPI PRN (08:15)
[2024-03-03] MEDS ORDERED: BUPIVACAINE 0.25% PF 30 ML VIAL EPI PRN (08:15)
[2024-03-03] MEDS ORDERED: NALOXONE HCL 0.4 MG/1 ML VIAL/CARP IV PRN (08:15)
[2024-03-03] MEDS ORDERED: ROPIVACAINE 0.5% PF 5 MG/ML 20 ML VIAL EPI PRN (08:15)
[2024-03-03] MEDS ORDERED: NALOXONE HCL 1 MG in SODIUM CHLORIDE 0.9% 1,000 ML IV PRN (08:15)
[2024-03-03] MEDS ORDERED: diphenhydrAMINE 50 MG/ML VIAL IV PRN (08:15)
[2024-03-03] MEDS ORDERED: fentaNYL citrate PF 100 MCG/2 ML VIAL EPI PRN (08:15)
[2024-03-03] MEDS ORDERED: ePHEDrine sulfate 50 MG/ML AMP IV PRN (08:15)
[2024-03-03] MEDS ORDERED: NALBUPHINE HCL INJ 10 MG/ML AMP IV PRN (08:15)
[2024-03-03] MEDS: BUPIVACAINE 0.25% PF 30 ML VIAL EPI STA (08:50)
[2024-03-03] MEDS: fentaNYL citrate PF 100 MCG/2 ML VIAL EPI STA (08:50)
[2024-03-03] MEDS: LIDOCAINE 2%/EPINEPHRINE 1:200,000 20 ML PF EPI STA (08:51)
[2024-03-03] MEDS: SODIUM CHLORIDE 0.9% PF INJ 10 ML VIAL EPI STA (08:51)
[2024-03-03] MEDS ORDERED: CALCIUM CARBONATE 500 MG CHEWABLE TAB PO PRN (09:17)
[2024-03-03] MEDS ORDERED: ACETAMINOPHEN 325 MG TAB PO PRN (09:17)
[2024-03-03] MEDS: OXYTOCIN 30 UNITS/NSS 30 UNITS/500 ML BAG IV PRN (09:49)
[2024-03-03] MEDS ORDERED: HYDROCORTISONE ACETATE 25 MG SUPP PR PRN (13:47)
[2024-03-03] MEDS ORDERED: oxyCODONE/ACETAMINOPHEN 5mg/325mg TAB PO PRN (13:47)
[2024-03-03] MEDS ORDERED: bisacodyL 10 MG SUPP PR PRN (13:47)
[2024-03-03] MEDS ORDERED: ACETAMINOPHEN W/CODEINE #3 1 TAB PO PRN (13:47)
[2024-03-03] MEDS ORDERED: BENZOCAINE 20% SPRY 85 APPLN/85 GM CAN EXT PRN (13:47)
[2024-03-03] MEDS: METHYLERGONOVINE MALEATE 0.2 MG/ML AMP ONE (13:50)
[2024-03-03] MEDS: miSOPROStoL 200 MCG TAB ONE (13:51)
--- NOTE | 2024-03-03 13:52 | Delivery Summary ---
Vaginal Delivery Summary Date of Service March 03, 2024 Vaginal Delivery Summary Patient is a 2 para 1 is been followed in the office for care and deliveries been well dated with a first trimester ultrasound. First delivery was at [facility] because of some anomalies. She called the day of admission at approximately 1 AM with symptoms of rupture of membranes. She was admitted to the hospital were hill rupture of membranes was documented. She then walked for several hours. Contractions became harder. She requested and received epidural anesthesia. She was then started on IV Pitocin. She delivered a live male infant via direct occiput anterior position over an intact perineum with only about 4 or 5 pushes. Infant was suctioned through the mouth and the nose after delivery of the head. Shoulders were delivered without difficulty. Cord was allowed to pulse for 1 full minute. Cord was then clamped. Cut by the father. Cord blood was taken. Inspection of the perineum revealed a very minor first-degree laceration. This was repaired with 3-0 Vicryl. Deep sutures used approximate the bulbocavernosus muscle. Second deep sutures used approximate the perineal body. And then a running 6 subcuticular sutures used approximate the perineal skin edges. Badge exam removed all sponges from the vagina there was no hematoma formation. 4 tablets of 200 mcg of Cytotec was placed rectally quantitative blood loss was 203 mL. Patient Toller procedure well.
--- NOTE | 2024-03-03 14:46 | Anesthesia Procedure Note ---
Date of Service March 03, 2024 Anesthesia Post Epidural Note Vital Signs Vital Signs: Temp Pulse Resp BP Pulse Ox 37.0 C 101 H 20 130/62 85 L 03/03/24 13:00 03/03/24 14:31 03/03/24 13:00 03/03/24 14:31 03/03/24 13:32 Notes Mental Status: alert / awake / arousable Nausea / Vomiting: adequately controlled Pain: adequately controlled Airway Patency, RR, SpO2: stable & adequate BP & HR: stable & adequate Hydration State: stable & adequate Neuraxial Anesthesia: was administered and sensory block is resolving Anesthetic Complications: no major complications apparent Epidural: Removed without complications and With tip intact
[2024-03-03] MEDS: IBUPROFEN 600 MG TAB PO PRN (14:53)
[2024-03-03] MEDS: miSOPROStoL 200 MCG TAB PR ONE (15:05)
[2024-03-03] MEDS: METHYLERGONOVINE MALEATE 0.2 MG/ML AMP IM ONE (15:05)
[2024-03-03] MEDS: DIPHTHER/TETAN/PERTUS Vaccine (Tdap, Adol/Adult) 0.5mL IM ONE (15:05)
[2024-03-03] MEDS: ACETAMINOPHEN 325 MG TAB PO PRN (20:19)
[2024-03-03] MEDS: DOCUSATE SODIUM 100 MG CAP PO SCH (21:00)
[2024-03-04 06:17] LABS: Hematocrit (blood only) 32.4 % (37.0-47.0); Hemoglobin 10.9 g/dl (12.0-16.0); Mean Corpuscular Hgb Conc 33.6 g/dL (32.0-36.0); Mean Corpuscular Volume 89.3 fL (80.0-100.0); Mean Platelet Volume 11.1 fL (9.4-12.4); Platelet Count 239 K/uL (130-400); RDW Coefficient of Variation 13.7 % (11.5-14.5); RDW Standard Deviation 44.5 fL (36.4-46.3); Red Blood Count 3.63 M/uL (4.20-5.40); White Blood Count 13.51 K/ul (4.8-10.8)
[2024-03-04 07:11] VITALS: TEMP 97.5; O2SAT 97
[2024-03-04] MEDS: PRENATAL VITAMIN 1 TAB PO SCH (08:09)
--- NOTE | 2024-03-04 08:51 | Obstetrical Progress Note ---
Date of Service March 04, 2024 Assessment & Plan Admission and Anticipated Discharge Date Admission Date: March 03, 2024 Subjective Patient is seen and examined. She feels well, no complaints. Ambulating without dizziness Voiding without difficulty Tolerating regular diet with out N&V Bleeding is minimal No fever/ chills/ CP/ SOB/ N&V/ Leg pain Breast feeding without problems Vital Signs Temp Pulse Resp BP Pulse Ox O2 Del Method 03/04/24 06:50 36.4 C L 90 16 120/86 97 Room Air 03/03/24 23:34 36.7 C 89 16 111/75 98 Room Air Lab Results 03/03/24 03/03/24 03/04/24 Range/Units 02:46 03:17 05:37 WBC 11.85 H 13.51 H (4.8-10.8) K/ul RBC 4.13 L 3.63 L (4.20-5.40) M/uL Hgb 12.5 10.9 L (12.0-16.0) g/dl Hct 37.8 32.4 L (37.0-47.0) % MCV 91.5 89.3 (80.0-100.0) fL MCH 30.3 30.0 (25.0-34.0) pg MCHC 33.1 33.6 (32.0-36.0) g/dL RDW Std Deviation 45.5 44.5 (36.4-46.3) fL RDW Coeff of Denise 13.7 13.7 (11.5-14.5) % Plt Count 268 239 (130-400) K/uL MPV 10.8 11.1 (9.4-12.4) fL POC Glucose 104 H (70-99) mg/dl Blood Type O Positive Antibody Screen NEGATIVE PE: General: Alert, orientedx3, NAD Abd: soft, NT, fundus firm, below Umbilicus Perineum intact, Lochia rubra minimal Ext; NT, no edema AP: 28 yo s/p , ppd# 1 VSS Afebrile doing well Continue routine care All questions were answered Desires d/c today, discussed when to call Results & Data Vital Signs (Past 12 Hours) Vital Signs Temp Pulse Resp BP Pulse Ox O2 Del Method 03/04/24 06:50 36.4 C L 90 16 120/86 97 Room Air 03/03/24 23:34 36.7 C 89 16 111/75 98 Room Air
[2024-03-04 12:26] VITALS: BP 102/68; PULSE 81; RESP 18
[2024-03-04] MEDS ORDERED: bisacodyL 5 MG TABEC PO SCH (20:00)
== END 2024-03-04 15:30 | disposition home health service (06) | DRG 807 ==
LOC: OPB 02:03 → 4S1 02:06 → 4E2 16:43